=== PATIENT | female | born 1945 | race Caucasian/White ===

== ENCOUNTER 2021-07-26 14:34 | Inpatient (IN) | payer MEDICARE, MEDICAID, SELFPAY ==
[2021-07-26] VITALS (21 sets, daily range): BP systolic 61–150; BP diastolic 47–92; PULSE 72–112; RESP 18–26; TEMP 36.3–36.4; O2SAT 84–100; BMI 23.6
--- NOTE | ~2021-07-26 | XR_ITS ---
EXAM: XR knee RT 3V HISTORY: PAIN,BUMPED KNEE ON DOOR TODAY,PT HYPER EXTENDED KNEE COMPARISON: None available FINDINGS: Decreased mineralization. No fracture or dislocation. No lytic or blastic lesion. Moderate tricompartmental osteoarthritis. No erosion or periosteal change. Moderate volume right knee effusio n. Vascular calcifications. Otherwise the soft tissues are within normal limits. IMPRESSION: No acute osseous finding in the right knee. Reviewed, dictated and finalized at location K.
--- NOTE | ~2021-07-26 | CT_ITS ---
EXAMINATION: CTA chest PE protocol DATE: 07/26/2021 20:22 INDICATION: hypoxic TECHNIQUE: Computed tomography angiography (CTA) of the chest was performed with 100 mL Omnipaque-350 intravenous contrast timed to evaluate the pulmonary arteries. Coronal maximum intensity projection 3D-reconstructions were created by the technologist. The dose-length product (DLP) was 632.10 mGy-cm. Automated exposure control and iterative reconstruction technique were employed. COMPARISON: X-ray chest same date, CTPA 05/16/2015. FINDINGS: Study quality: Adequate. Pulmonary arteries: No pulmonary emboli detected. Thoracic aorta: Arch calcifications, minimal dilation. Lung parenchyma and airways: Motion limited, mild apical interlobular septal thickening. Central twin bronchovascular thickening. Thoracic inlet, axillae and chest wall: Unremarkable. Mediastinum: Normal. Heart and pericardium: Mitral and aortic valve calcification. Coronary artery calcifications: Mild. Pleura: Small right pleural effusion. No pleural mass. Upper abdomen: No significant finding. Bones: No acute osseous finding. IMPRESSION: No CT evidence of acute pulmonary embolus. Mild interstitial pulmonary edema Reviewed, dictated and finalized at location K.
--- NOTE | ~2021-07-26 | XR_ITS ---
EXAMINATION: XR chest 1V portable Exam Date/Time: 07/26/2021 18:40 CDT CLINICAL HISTORY: SOB Comparison: None available. RESULT: Lines, tubes, and devices: None. Lungs and pleura: Low lung volumes. Bronchovascular crowding. Cardiomediastinal silhouette: Stable cardiomediastinal silhouette. Other: No acute osseous or upper abdominal finding. IMPRESSION: No acute cardiopulmonary process Reviewed, dictated and finalized at location K.
--- NOTE | 2021-07-26 17:01 | ED.GENADULT ---
HPI - General Adult General Chief complaint: Fall Stated complaint: fall and hurt knee Time Seen by Provider: 07/26/21 14:46 History of Present Illness HPI narrative: Patient is a 75-year-old female who presents ER after injuring her knee. She was trying to get into a tall SUV and she crossed her right leg in front of her chest which is not how she typically gets into the car. It caused her to have pain in her knee and fall. She did not strike her head or lose consciousness. She has no numbness or tingling in her knee. She has pain with attempting to bear weight. No swelling to the knee. Related Data Allergies Allergy/AdvReac Type Severity Reaction Status Date / Time Penicillins Allergy Unknown Rash Verified 07/26/21 14:58 Review of Systems Musculoskeletal: Musculoskeletal: Reports arthralgias, Denies joint swelling and Denies muscle cramps Integumentary/Breasts: Skin/Breast: Denies erythema and Denies rash Neurologic: Denies syncope, Denies focal weakness and Denies numbness PMFSH Past Medical History Medical History (Updated 07/26/21 @ 17:14 by Compa Talamantes MD) Anxiety Depression History of dementia Hypothyroidism Multiple sclerosis Rheumatoid arthritis Surgical History Surgical History (Updated 07/26/21 @ 17:14 by Compa Talamantes MD) History of cholecystectomy History of gastric bypass History of hysterectomy History of inguinal hernia repair Hx of tonsillectomy Exam Narrative: GENERAL: Well-appearing, well-nourished, and in no acute distress. HEAD: Normocephalic, atraumatic. EXTREMITIES: Normal range of motion. No edema. No effusion of the right knee. Mild tenderness along the anterior joint line. Increased discomfort with stressing of the lateral aspect of the knee but otherwise ligamentously intact. SKIN: Warm, dry, no rash. NEURO: Alert and oriented x3. PSYCH: Normal mood and affect. Course Course Emergency Course: Informed of results. Discussed treatment plan. Discharge home. Vital Signs Vital signs: Vital Signs Temperature 97.4 F L 07/26/21 14:38 Pulse Rate 72 07/26/21 14:38 Respiratory Rate 18 07/26/21 14:38 Blood Pressure 150/61 H 07/26/21 14:38 Pulse Oximetry 91 07/26/21 14:38 Temperature 97.4 F L 07/26/21 14:38 Pulse Rate 72 05/15/22 14:38 Respiratory Rate 18 07/26/21 14:52 Blood Pressure 150/61 H 07/26/21 14:38 Pulse Oximetry 98 07/26/21 14:52 Medical Decision Making Vital Signs Vital Signs: Vital Signs Temperature 97.4 F L 07/26/21 14:38 Pulse Rate 72 07/26/21 14:38 Respiratory Rate 18 07/26/21 14:38 Blood Pressure 150/61 H 07/26/21 14:38 Pulse Oximetry 91 07/26/21 14:38 Temperature 97.4 F L 07/26/21 14:38 Pulse Rate 72 07/26/21 14:38 Respiratory Rate 18 07/26/21 14:52 Blood Pressure 150/61 H 07/26/21 14:38 Pulse Oximetry 98 07/26/21 14:52 Imaging Data Radiologist's impression: ITS Impressions Knee X-Ray 07/26/21 16:00 IMPRESSION: No acute osseous finding in the right knee. Discharge Plan Discharge Clinical Impression: Right knee sprain Patient Disposition: Home, Self-Care Condition: Stable Instructions: Knee Sprain (ED), P.R.I.C.E. Treatment (ED) Additional Instructions: Return the ER if you suffer additional injury, he have a cold/blue lower extremity, you have additional concerns. Prescriptions: New ibuprofen 400 mg tablet 400 mg PO TID Qty: 14 RF: 0 Follow-up/Referrals: Eladio Connolly MD [Primary Care Provider] - 1 Week
[2021-07-26 17:36] LABS: Glucose Point of Care 160 mg/dl (65-105)
[2021-07-26] MEDS: ONDANSETRON HCL ODT 4 MG TABLET PO (17:37)
--- NOTE | 2021-07-26 17:50 | PC.NURSE ---
At discharge noted pt being pale, diaphoretic, and c/o nausea. BS checked and was reading 160, BP 105/68, P 93 R 20, O2 sat 84% on RA. Pt taken to room 11 and put on monitors.
--- NOTE | 2021-07-26 17:57 | ECG_ITS ---
Measurements Intervals [place] Rate: 93 P: 21 RI: 174 QRS: -60 QRSD: 109 T: 63 QT: 354 QTc: 441 Interpretive Statements SINUS RHYTHM VENTRICULAR PREMATURE COMPLEX LATERAL INFARCT, AGE INDETERMINATE INFERIOR INFARCT, AGE INDETERMINATE BORDERLINE ST-T WAVE ABNORMALITY- HIGH LATERAL LEADS ABNORMAL ECG Electronically Signed On 07-26-2021 20:12:33 CDT by Alexis Kline D.O.
[2021-07-26 18:22] LABS: Basophils Absolute Auto 0.1 K/mm3 (0.0-0.1); Basophils Percent Auto 0.4 % (0.2-1.2); Eosinophils Absolute Auto 0.1 K/mm3 (0-0.3); Eosinophils Percent Auto 0.7 % (0-4.4); Hematocrit 46.2 % (37.0-47.0); Hemoglobin 14.7 g/dL (12.0-15.0); Immature Granulocyte Absolute 0.05 K/mm3 (0.00-0.031); Immature Granulocyte Percent A 0.4 % (0-0.5); Lymphocytes Absolute Auto 0.71 K/mm3 (0.9-3.2); Lymphocytes Percent Auto 5.6 % (18.3-44.2); Mean Corpuscular HGB Conc 31.8 g/dl (32-36); Mean Corpuscular Volume 97.5 fl (80-100); Mean Platelet Volume 10.7 fl (7.4-10.4); Monocytes Absolute Auto 0.6 K/mm3 (0.1-0.6); Monocytes Percent Auto 4.5 % (2.6-8.5); Neutrophils Absolute Auto 11.1 K/mm3 (1.3-6.7); Neutrophils Percent Auto 88.4 % (45.5-73.1); Platelet Count Result 172 k/mm3 (150-375); Red Blood Count 4.74 M/mm3 (4.2-5.4); Red Cell Distribution Width 13.8 % (11.5-14.5); White Blood Count 12.6 K/mm3 (4.5-10.0)
[2021-07-26] MEDS: SODIUM CHLORIDE 0.9% IV 1,000 ML 999 ML IV CONT (18:22)
[2021-07-26 18:37] LABS: Alanine Aminotransferase 40 U/L (6-35); Albumin Level 3.7 g/dL (3.5-5.1); Alkaline Phosphatase 273 U/L (38-126); Anion Gap 6 mmol/L (8-16); Aspartate Amino Transferase 52 U/L (14-36); Bilirubin,Total 1.4 mg/dL (0.2-1.3); Blood Urea Nitrogen 26 mg/dL (7-17); Carbon Dioxide 26 mmol/L (22-30); Chloride 109 mmol/L (98-107); Estimated CRCL calculation 38 ml/min; Estimated Glomerular Filt Rate 54; Glucose 146 mg/dL (65-110); Lactic Acid Reflex 1.1 mmol/L (0.7-2.0); Lipase 37 U/L (23-300); Potassium 4.3 mmol/L (3.4-5.0); Sodium 141 mmol/L (137-145)
[2021-07-26 19:05] LABS: Appearance Urine Slightly Cloudy (Clear); Bilirubin Urine 1+ (Negative); Blood Urine 3+ (Negative); Color Urine Yellow (Yellow); Glucose Urine UA Negative (Negative); Ketones Urine 1+ mg/dL (Negative); Leukocyte Esterase Ur Trace LEU/UL (Negative); Nitrate Urine Negative (Negative); Protein Urine 1+ mg/dL (Negative); pH Urine 5.5 (5.0-9.0)
[2021-07-26 19:08] LABS: Alveolar/Arterial O2 Gradient 214.3 mmHg; Base Excess ABG -5.4 mEq/l (+/-2.0); Carboxyhemoglobin 1.2 % THb (0-2.0); Fractional Inspired Oxygen 44 %; HCO3 ABG 20.7 mEq/l (22.0-26.0); Methemoglobin ABG 0.2 %THb (0-1.5); Oxygen Content ABG 17.1 %vol (16.0-22.0); PCO2 ABG 42.5 mmHg (35.0-45.0); PO2 FiO2 Ratio Arterial Blood 1.16 %; Reduced Hemoglobin 14.7 %THb (0-5.0); Total Hemoglobin 14.5 g/dL (12.0-18.0); pH ABG 7.306 (7.350-7.450)
[2021-07-26 19:13] LABS: Device NASAL CANNULA; Modified Allen's Test Pass; Oxygen Saturation ABG 82.7 % (95.0-100.0); Oxyhemoglobin 83.9 % THb (90.0-100.0); Site Drawn RIGHT RADIAL
[2021-07-26 19:16] LABS: Bacteria Urine 2+ /hpf; Mucus Urine Rare /lpf; RBC Urine >75 /hpf (0-2); Squamous Epithelial Cell Urine Rare /hpf (Few); WBC Urine 16-20 /hpf
[2021-07-26 19:20] LABS: Add Urine Microscopic? YES
--- NOTE | 2021-07-26 19:26 | PC.NURSE ---
Assumed care of pt at this time. Pt upright on stretcher, family at bedside. Respiratory at bedside to administer high flow O2.
[2021-07-26 20:20] LABS: Troponin I 0.211 ng/mL (0.000-0.034)
[2021-07-26 20:24] LABS: SARS-CoV-2 RNA PCR Negative
--- NOTE | 2021-07-26 21:06 | PM.IMHP ---
H&P: HPI History of Present Illness Date/Time: 07/26/21 21:06 Chief Complaint: Fall with knee pain Narrative: 75-year-old female with past medical history of diastolic dysfunction, mild pulmonary hypertension, chronic pain syndrome, chronic bronchitis and multiple sclerosis among other comorbidities who presented to the ER due to right knee pain. The patient was trying to get into a SUV when a friend from [employer] was taking her back to her assisted living facility she fell hitting her right knee on the door frame. She felt as if she had hyper extended her leg and wrenched her knee. She reports that her friend caught her and that she never fell to the ground. She was evaluated in the ER with a x-ray of her knee and given a Liter of fluid. As she was preparing for discharge home the patient suddenly had an episode of severe nausea and a loose bowel movement. Following the symptoms the patient suddenly desaturated to 84% on room air. Stat ABG was performed in correlated with these findings. The patient was placed on high-flow nasal cannula and was titrated up to 9 L of oxygen to maintain sats of 97%. It was suspected the patient may have COVID as she was having sneezing and nasal congestion noted by ER staff. COVID PCR was performed and was negative. Patient has stat EKG performed which demonstrated lateral and inferior infarct age indeterminate and borderline ST and T-wave abnormality in high lateral leads. At the time of my evaluation the patient admits that she has actually been short of breath for the last 48 hours. She reports that she ?felt as if she had fluid on her lungs.?. She did not share this information with the ER providers. She admits that she always sleeps with the head of the bed at around 45?. She does not know if she is having any orthopnea she will not lay flat. She denies any lower extremity swelling or abdominal swelling. She reports that she used to be morbidly obese but over the last several years has lost weight due to not liking the taste of the shelter food. She denies any chest pain or palpitations. She has been having what she thought were allergy symptoms with some nasal congestion and sneezing. She denies any sore throat, fevers, chills. She reports that she frequently has loose stools that she thought was due to her multiple sclerosis but is more likely due to her history of prior gastric bypass. She reports that today the diarrhea was unusual because she has not actually eaten any food. She has not had any further episodes of diarrhea. She reports that over the last weeks he has been having increased urinary frequency and dysuria. She has also noticed that her urine has been cloudy. She denies any fevers or chills. She has chronic incontinence of bowel and bladder due to her history of multiple sclerosis. 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 However, the patient is a extremely good historian and is alert oriented x4. Source of information includes patient report and review of past medical records. The patient denies a history of heart failure but an echo was located from past medical records that indicate the patient had mild pulmonary hypertension and diastolic dysfunction grade 1 back in 2017. Review of Systems Review of Systems: 12 systems were reviewed with pertinent positives and negatives per HPI. Except as documented in the HPI, all other systems were reviewed and are negative. [facility] Past Medical History Medical History (Updated 07/27/21 @ 00:17 by Ammy Hardin, ) Anxiety B12 deficiency Chronic bronchitis Chronic pancreatitis Dementia Depression Diastolic dysfunction Noted on echocardiogram 2015, EF 65%, moderate LVH Diet-controlled type 2 diabetes mellitus GERD (gastroesophageal reflux disease) Hyperlipidemia Hypothyroidism Intracranial bleed Noted on MRI May 2016: 8 mm lesion in the right temporal lobe consistent with acute intraparenchymal hemato
[2021-07-26] MEDS: FUROSEMIDE INJ 40 MG/4 ML VIAL IV PUSH (21:12)
[2021-07-26] MEDS: ASPIRIN 81 MG CHEWABLE TABLET 324 MG PO (21:12)
--- NOTE | 2021-07-26 21:51 | PC.NURSE ---
Ame Bryan (PH: [phone]) would like to be notified if pt needs anything brought to hospital during stay. Otherwise, call listed POA for all other issues.
--- NOTE | 2021-07-26 21:56 | ECG_ITS ---
Measurements Intervals [place] Rate: 111 P: 17 MN: 133 QRS: -68 QRSD: 108 T: 57 QT: 322 QTc: 439 Interpretive Statements SINUS TACHYCARDIA ANTEROLATERAL INFARCT, AGE INDETERMINATE INFERIOR INFARCT, AGE INDETERMINATE BORDERLINE ST-T WAVE ABNORMALITY- HIGH LATERAL LEADS ABNORMAL ECG Electronically Signed On 07-27-2021 6:53:09 CDT by Alexis Kline D.O.
[2021-07-26 21:58] LABS: Troponin I 0.639 ng/mL (0.000-0.034)
[2021-07-26 22:01] LABS: Influenza A QL RT-PCR Negative (Negative); Influenza B QL RT-PCR Negative (Negative)
[2021-07-26] MEDS: HEPARIN SODIUM 5,000 UNITS/ML VIAL 3500 UNITS IV PUSH (22:22)
[2021-07-26] MEDS: HEPARIN SOD/D5W 100 UNITS/ML 25,000 UNITS/250 ML BAG 7 UNITS IV CONT (22:23)
--- NOTE | 2021-07-26 22:28 | PC.NURSE ---
Pt denies CP, but c/o pain in right knee. requesting ice pack
[2021-07-26 22:50] LABS: Partial Thromboplastin Time 28.2 SECONDS (22.3-36.8); Prothrombin Time 13.2 Seconds (11.1-14.7)
--- NOTE | 2021-07-26 22:55 | ADMGEN ---
This patient, Alejandra Gray, was admitted to IMU Room 213-01. Patient/family oriented to hospital policies and general routines including ID bracelet, bed and alarms, visiting hours, pain management, procedures, bathroom and other care routines, personal items, smoking policy, room service/diet, and visiting hours. Information on how to activate the Rapid Response Team has been discussed. Patient/Family are encouraged to report perceived risks to care and to ask questions if they do not understand what they are told or what they should do.
[2021-07-27] VITALS (15 sets, daily range): BP systolic 98–127; BP diastolic 40–70; PULSE 93–109; RESP 16–28; TEMP 36.6–36.9; O2SAT 92–99
--- NOTE | 2021-07-27 | ECHO_ITS ---
Patient Info Name: Alejandra Gray Age: 75 years : 1945 Gender: Female Ht: 64 in Wt: 129 lbs BSA: 1.63 m2 HR: 99 bpm BP: 103 / 56 mmHg Heart Rhythm: Sinus Rhythm Exam Date: 07/27/2021 9:08 AM Exam Location: [facility] Patient Status: Inpatient Admit Date: 07/26/2021 Staff Ordering Physician: Ammy Hardin DO Soil Expert: Dusty Lowery RDCS, RT Attending Provider: Sylvia Carlton PA-C Referring Physician: Wilfred PRADHAN; Exam Type: CA echo doppler color flow Study Info Indications J96.91 - Respiratory failure, unspecified with hypoxia Complete two-dimensional, color flow and Doppler transthoracic echocardiogram is performed. Strain analysis performed. Summary 1. Complete two-dimensional, color flow and Doppler transthoracic echocardiogram is performed. 2. Left ventricular chamber dimension is normal. 3. Left ventricular systolic function is hyperdynamic, estimated at >70%. 4. Left atrial chamber dimension is normal. 5. There is mild aortic valve sclerosis. Left Ventricle Left ventricular chamber dimension is normal. Left ventricular systolic function is hyperdynamic, estimated at >70%. The left ventricular diastolic function is grade I diastolic dysfunction. Right Ventricle Right ventricular chamber dimension is normal. Left Atria Left atrial chamber dimension is normal. Right Atria Right atrial chamber dimension is normal. Aortic Valve The aortic valve is trileaflet. There is mild aortic valve sclerosis. Pulmonic Valve The pulmonic valve is not well visualized. Mitral Valve The mitral valve has normal leaflets. Tricuspid Valve The tricuspid valve leaflets are normal. Pericardium/Pleural The pericardium appears normal. Aorta The aortic root size at the sinus of Valsalva is normal. Left Ventricular Outflow Tract Name Value Normal LVOT 2D LVOT Diameter 2.0 cm LVOT Doppler LVOT Peak Gradient 4 mmHg LVOT Mean Gradient 1 mmHg LVOT VTI 14 cm LVOT VTI/AV VTI Ratio 0.5 LVOT Stroke Volume 43 ml LVOT CO 4.2 l/min LVOT CI 2.6 l/min/m2 Mitral Valve Name Value Normal MV Doppler MV Decel [place] 264 cm/s2 MV PHT 35 ms MV Area (PHT) 6.2 cm2 4.0-5.0 MV Diastolic Function MV E Peak Velocity 32 cm/s MV A Peak Velocity 99 cm/s MV E/A 0.3 MV Decel Time 122 ms MV Annular TDI
[2021-07-27 01:33] LABS: Troponin I 0.849 ng/mL (0.000-0.034)
[2021-07-27 04:52] LABS: Basophils Absolute Auto 0.1 K/mm3 (0.0-0.1); Basophils Percent Auto 0.4 % (0.2-1.2); Eosinophils Absolute Auto 0.1 K/mm3 (0-0.3); Eosinophils Percent Auto 0.4 % (0-4.4); Hematocrit 44.6 % (37.0-47.0); Hemoglobin 14.7 g/dL (12.0-15.0); Immature Granulocyte Absolute 0.11 K/mm3 (0.00-0.031); Immature Granulocyte Percent A 0.7 % (0-0.5); Lymphocytes Absolute Auto 0.84 K/mm3 (0.9-3.2); Mean Corpuscular Hemoglobin 31.4 pg (26-34); Mean Corpuscular Volume 95.3 fl (80-100); Monocytes Absolute Auto 0.5 K/mm3 (0.1-0.6); Monocytes Percent Auto 2.9 % (2.6-8.5); Neutrophils Absolute Auto 15.1 K/mm3 (1.3-6.7); Neutrophils Percent Auto 90.6 % (45.5-73.1); Platelet Count Result 216 k/mm3 (150-375); Red Blood Count 4.68 M/mm3 (4.2-5.4); Red Cell Distribution Width 13.8 % (11.5-14.5); White Blood Count 16.7 K/mm3 (4.5-10.0)
[2021-07-27 05:02] LABS: Anion Gap 9 mmol/L (8-16); Blood Urea Nitrogen 28 mg/dL (7-17); Calcium 8.6 mg/dL (8.4-10.2); Carbon Dioxide 22 mmol/L (22-30); Chloride 109 mmol/L (98-107); Estimated CRCL calculation 33 ml/min; Estimated Glomerular Filt Rate 49; Glucose 164 mg/dL (65-110); Magnesium 1.8 mg/dL (1.6-2.3); Potassium 4.4 mmol/L (3.4-5.0); Sodium 140 mmol/L (137-145)
[2021-07-27 05:08] LABS: Partial Thromboplastin Time 120.4 SECONDS (22.3-36.8)
[2021-07-27 05:21] LABS: Troponin I 0.914 ng/mL (0.000-0.034)
--- NOTE | 2021-07-27 08:28 | PM.CNCAR ---
Assessment and Plan Additional Plan 75-year-old lady with: Visit to the emergency room yesterday because of knee pain that occurred when she twisted her knee in unusual position getting out of an SUV. She became short of breath while she was in the emergency room and because of this a series of troponin levels were drawn. The results are as detailed above in my note. She has no cardiac symptomatology other than the shortness of breath that she was noted in the emergency room. She says that is no longer bothering her she still wearing nasal cannula oxygen. She did receive a dose of furosemide last night in the emergency room. Her electrocardiogram would be read as consistent with a previous inferolateral infarction. I would recommend getting an echocardiogram done for further evaluation of this along with her shortness of breath at a a created this concern last night. Further recommendations will be forthcoming after I review her echo findings. Adarsh Ricardo MD [facility] History of Present Illness History of Present Illness Consult date/time: 07/27/21 08:28 Consult reason: Other (Elevated troponin) Reason For Visit: Acute Hypoxic Respiratory Failure requiring high f Narrative: This is a 75-year-old woman who says she is not known to have any cardiac problems before this I am seeing her this morning at the request of the hospitalist because of troponin levels that were sampled and are out of normal range. She is resting comfortably this morning wearing nasal cannula oxygen in the IMU and does not offer any current complaints. She was sleeping comfortably in bed when I came in to see her and upon awakening she has no complaints. The chart indicates a rather uncommon or strange presentation that would have resulted in troponin being sampled. She came to the emergency room because she twisted her knee getting in or out of an SUV it as friend was bring her to [facility] yesterday. She had significant knee pain and was brought to the emergency room for evaluation. During the course of evaluation down there apparently she became short of breath and oxygen levels desaturated. A chest x-ray was done which did not show any significant pathology other than what was described as low lung volumes. On my review I was concerned that there was a possibly some vascular cephalization. In any event she had a CT of the chest done which was negative for pulmonary embolism. She was put on some nasal cannula oxygen and troponin levels were sampled. The levels started at 0.2 and lynette to a high of 0.9. The patient's electrocardiogram shows sinus rhythm with what appears to be a previous inferolateral infarction. She says she is not known to have any coronary artery disease or any cardiac trouble in the past. She resides in a assisted living facility at [facility] her PCP is Dr. Connolly. She says she has never been told she has hypertension or dyslipidemia. She was previously morbidly obese and at that time had diabetes which she says is resolved with weight loss. Her other principal health problem is multiple sclerosis she has difficult time ambulating at times sometimes uses a walker and for longer ambulation she uses a wheelchair. She has not been experiencing orthopnea PND or edema. When she does walk at [facility] with her walker she has not noticed any exertional dyspnea or chest pain. Review of Systems Constitutional: Constitutional: Reports no additional constitutional complaints Eyes: Eyes: Reports no additional eye complaints ENT: Reports system reviewed and no additional complaints, except as documented Cardiovascular: Cardiovascular: Reports no additional cardiovascular complaints Respiratory: Respiratory: Reports as per HPI Gastrointestinal: Gastrointestinal: Reports diarrhea Comments: Patient has chronic intermittent diarrhea for a number of years Musculoskeletal: Musculoskeletal: Reports no additional musculoskeletal complaints Integu
[2021-07-27] MEDS: LEVOTHYROXINE SODIUM 75 MCG TABLET PO (09:28)
[2021-07-27] MEDS: CHOLECALCIFEROL 1,000 UNITS TABLET 2000 UNITS PO ×2 (09:28→16:54)
[2021-07-27] MEDS: ASPIRIN 81 MG ENTERIC TABLET PO (09:28)
[2021-07-27] MEDS: cycloSPORINE 0.4 ML OPHTH SOLUTION 1 DROP EACH EYE ×2 (09:28→16:53)
[2021-07-27] MEDS: ESCITALOPRAM OXALATE 10 MG TABLET PO (09:28)
[2021-07-27] MEDS: MEMANTINE HCL XR 28 MG CAP PO (09:29)
[2021-07-27] MEDS: FERROUS SULFATE 324 MG TABLET PO ×2 (09:29→16:53)
[2021-07-27] MEDS: FLUTICASONE PROPIONATE 0.05% NA SPR 16 GM BTL (*BKC) 1 SPRAY NASAL (09:29)
[2021-07-27] MEDS: PANTOPRAZOLE 40 MG TABLET PO (09:29)
[2021-07-27] MEDS: HEPARIN SODIUM 5,000 UNITS/ML VIAL 2500 UNITS IV PUSH (14:02)
--- NOTE | 2021-07-27 14:32 | PM.IMPN ---
Progress Note: A&P Assessment and Plan (1) Acute respiratory failure with hypoxia: Code(s): J96.01 - Acute respiratory failure with hypoxia Status: Acute Assessment and Plan: Patient developed acute hypoxic respiratory failure while in the ED Suspected secondary to pulmonary edema CXR showed no acute findings and CTA revealed mild pulmonary edema Currently requiring 6 L per high-flow nasal cannula. Maintaining adequate oxygen saturations Echocardiogram is pending (2) Elevated troponin: Code(s): R77.8 - Other specified abnormalities of plasma proteins Status: Acute Assessment and Plan: Troponin mildly elevated up to 0.914 Appreciate cardiology consultation EKG revealed evidence of prior inferolateral infarction No evidence to suggest acute coronary syndrome She was started on heparin drip at presentation which will be discontinued at this time following discussion with Cardiology Continue aspirin 81 mg daily (3) Acute exacerbation of CHF (congestive heart failure): Qualifiers: Heart failure type: diastolic Qualified Code(s): I50.33 - Acute on chronic diastolic (congestive) heart failure Code(s): I50.9 - Heart failure, unspecified Status: Acute Assessment and Plan: Patient with suspected acute exacerbation of diastolic heart failure exacerbated by fluid administration Echocardiogram is pending Symptomatic improvement following 1 time dose IV furosemide 40 mg. Will resume Appreciate cardiology consultation Heart healthy diet. Monitor volume status with I&Os. Weigh daily. (4) Abnormal urinalysis: Code(s): R82.90 - Unspecified abnormal findings in urine Status: Acute Assessment and Plan: Urinalysis was abnormal on presentation Continue ceftriaxone empirically Urine culture pending. Await results and tailor antibiotics appropriately Monitor WBC (5) Right knee sprain: Qualifiers: Encounter type: initial encounter Involved ligament of knee: unspecified ligament Qualified Code(s): S83.91XA - Sprain of unspecified site of right knee, initial encounter Code(s): S83.91XA - Sprain of unspecified site of right knee, initial encounter Status: Acute Assessment and Plan: Presented to ED with complaints of right knee pain after a fall Knee x-ray showed no acute osseous findings Supportive care Additional Plan Patient is hemodynamically stable and will be downgraded to medical floor Subjective Date/time seen: 07/27/21 14:32 Interval history: Date of service: 07/27/2021 Alejandra Gray is a 75-year-old female with a history of diastolic dysfunction, anxiety, depression, hyperlipidemia, multiple sclerosis, in several other medical problems who is seen in follow-up for acute respiratory failure. She is feeling ?much better? today. She denies shortness of breath. She has been resting comfortably for most of the day. Denies cough. Denies conversational dyspnea. No orthopnea. She does complain of some right knee discomfort that she rates as about a 7/10. She states this is much improved from yesterday. She is able to move it a little bit more comfortably and she denies any swelling. She has not been able to bear weight today as she has not been up from bed. She denies swelling in her extremities. Denies nausea or vomiting. Appetite is good. Reports regular bowel movements. Denies dysuria or hematuria. No fevers or chills. She has no additional concerns. 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
--- NOTE | 2021-07-27 18:16 | PC.NURSE ---
Faxed, Tubed, and notified 3rd Med/Surg of Patient's SBAR sent at 1723.
--- NOTE | 2021-07-27 18:17 | PC.NURSE ---
Called 3rd Med/Surg to give report on patient at 1802. Was informed of RN being on lunch at this time.
--- NOTE | 2021-07-27 18:48 | PC.NURSE ---
This patient, Alejandra Gray, was transferred to [facility] on 07/27/21 at 1840. Personal belongings sent with patient. Report given to Cara HUIZAR. Appropriate documentation sent with patient.
[2021-07-27] MEDS: HYDROcodone/acetaminophen (*CRX) 5-325 MG TABLET 1 TAB PO (20:50)
[2021-07-27] MEDS: MELATONIN 5 MG, MELATONIN 3 MG 8 MG PO (20:51)
[2021-07-28] VITALS (8 sets, daily range): BP systolic 109–138; BP diastolic 52–68; PULSE 92–99; RESP 16–20; TEMP 35.7–36.9; O2SAT 88–100
[2021-07-28] MEDS: LEVOTHYROXINE SODIUM 75 MCG TABLET PO (05:51)
[2021-07-28 06:21] LABS: Hematocrit 39.4 % (37.0-47.0); Hemoglobin 12.6 g/dL (12.0-15.0); Immature Platelet Fraction Pct 4.8 % (0.9-11.2); Mean Corpuscular Hemoglobin 30.6 pg (26-34); Mean Corpuscular Volume 95.6 fl (80-100); Mean Platelet Volume 11.7 fl (7.4-10.4); Platelet Count Result 115 k/mm3 (150-375); Red Blood Count 4.12 M/mm3 (4.2-5.4); Red Cell Distribution Width 13.8 % (11.5-14.5); White Blood Count 7.4 K/mm3 (4.5-10.0)
[2021-07-28 06:28] LABS: Anion Gap 3 mmol/L (8-16); Blood Urea Nitrogen 29 mg/dL (7-17); Calcium 8.4 mg/dL (8.4-10.2); Carbon Dioxide 28 mmol/L (22-30); Chloride 110 mmol/L (98-107); Estimated CRCL calculation 33 ml/min; Estimated Glomerular Filt Rate 49; Glucose 122 mg/dL (65-110); Potassium 3.9 mmol/L (3.4-5.0); Sodium 141 mmol/L (137-145)
[2021-07-28] MEDS: FUROSEMIDE INJ 40 MG/4 ML VIAL 20 MG IV PUSH (08:36)
[2021-07-28] MEDS: CHOLECALCIFEROL 1,000 UNITS TABLET 2000 UNITS PO ×2 (08:36→16:43)
[2021-07-28] MEDS: ESCITALOPRAM OXALATE 10 MG TABLET PO (08:36)
[2021-07-28] MEDS: cycloSPORINE 0.4 ML OPHTH SOLUTION 1 DROP EACH EYE ×2 (08:36→16:43)
[2021-07-28] MEDS: FERROUS SULFATE 324 MG TABLET PO ×2 (08:36→16:42)
[2021-07-28] MEDS: ASPIRIN 81 MG ENTERIC TABLET PO (08:36)
[2021-07-28] MEDS: PANTOPRAZOLE 40 MG TABLET PO (08:36)
[2021-07-28] MEDS: MEMANTINE HCL XR 28 MG CAP PO (08:36)
[2021-07-28] MEDS: FLUTICASONE PROPIONATE 0.05% NA SPR 16 GM BTL (*BKC) 1 SPRAY NASAL (08:37)
[2021-07-28] MEDS: HYDROcodone/acetaminophen (*CRX) 5-325 MG TABLET 1 TAB PO ×2 (08:39→16:42)
--- NOTE | 2021-07-28 13:28 | PM.IMPN ---
Progress Note: A&P Assessment and Plan (1) Acute respiratory failure with hypoxia: Code(s): J96.01 - Acute respiratory failure with hypoxia Status: Acute Assessment and Plan: Patient developed acute hypoxic respiratory failure while in the ED Suspected secondary to pulmonary edema CXR showed no acute findings and CTA revealed mild pulmonary edema Currently requiring 3 L per nasal cannula. Maintaining adequate oxygen saturations. Continue to wean (2) Elevated troponin: Code(s): R77.8 - Other specified abnormalities of plasma proteins Status: Acute Assessment and Plan: Troponin mildly elevated up to 0.914 Appreciate cardiology consultation EKG revealed evidence of prior inferolateral infarction No evidence to suggest acute coronary syndrome Continue aspirin 81 mg daily (3) Acute exacerbation of CHF (congestive heart failure): Qualifiers: Heart failure type: diastolic Qualified Code(s): I50.33 - Acute on chronic diastolic (congestive) heart failure Code(s): I50.9 - Heart failure, unspecified Status: Acute Assessment and Plan: Patient with acute exacerbation of diastolic heart failure exacerbated by fluid administration Echocardiogram reviewed which showed hyperdynamic systolic function >70% with diastolic dysfunction Lasix 20 mg IV. Plan to transition to p.o. Lasix tomorrow Appreciate cardiology consultation Heart healthy diet. Monitor volume status with I&Os. Weigh daily. (4) Abnormal urinalysis: Code(s): R82.90 - Unspecified abnormal findings in urine Status: Acute Assessment and Plan: Urinalysis was abnormal on presentation Urine culture with growth of mixed genital trena not indicative of acute infection Continue IV ceftriaxone given patient's clinical picture and improvement in symptoms with therapy Monitor WBC (5) Right knee sprain: Qualifiers: Encounter type: initial encounter Involved ligament of knee: unspecified ligament Qualified Code(s): S83.91XA - Sprain of unspecified site of right knee, initial encounter Code(s): S83.91XA - Sprain of unspecified site of right knee, initial encounter Status: Acute Assessment and Plan: Presented to ED with complaints of right knee pain after a fall Knee x-ray showed no acute osseous findings Supportive care PT/OT eval appreciated Subjective Date/time seen: 07/28/21 13:28 Interval history: Date of service: 07/28/2021 Alejandra Gray is a 75-year-old female with a history of diastolic dysfunction, anxiety, depression, hyperlipidemia, multiple sclerosis, and several other medical problems who is seen in follow-up for acute respiratory failure. She is feeling today. She states the soreness of her knee has improved. She denies shortness of breath cough, or wheezes. Denies nausea, vomiting fever, chills. Denies urinary symptoms. States that previously she was having some flank pain and discomfort with urinating but this has resolved. She has been using the bedpan while in the hospital but typically she is able to transfer from her wheelchair to the bathroom. Her appetite is good. Review of Systems Review of Systems: All systems reviewed & are unremarkable except as noted in HPI and below Exam Narrative: General: Thin, frail 75-year-old female, sitting up in bed, comfortable, NARD Neuro: awake, alert and oriented x4, speech clear, no focal neuro deficits noted HEENMT: normocephalic, atraumatic, EOMI, sclerae anicteric Respiratory: Clear to auscultation bilaterally, nonlabored breathing Cardio: regular rate, regular rhythm with S1-S2 Abdomen: nondistended, normoactive bowel sounds, soft, nontender to palpation Extremities: Bilateral knees nontender to palpation, no edema of bilateral knees or calves, no erythema or tenderness to palpation, DP pulses 2+ bilaterally Skin: no rashes or lesions, warm and dry Psych:
[2021-07-29] MEDS: HYDROcodone/acetaminophen (*CRX) 5-325 MG TABLET 1 TAB PO (02:16)
[2021-07-29 06:00] VITALS: BP 134/70; PULSE 107; RESP 16; TEMP 36.2; O2SAT 94
[2021-07-29] MEDS: LEVOTHYROXINE SODIUM 75 MCG TABLET PO (06:04)
[2021-07-29 06:14] VITALS: O2SAT 94
[2021-07-29 06:36] LABS: Hematocrit 39.1 % (37.0-47.0); Hemoglobin 12.5 g/dL (12.0-15.0); Immature Platelet Fraction Pct 6.2 % (0.9-11.2); Mean Corpuscular Hemoglobin 30.7 pg (26-34); Mean Corpuscular Volume 96.1 fl (80-100); Mean Platelet Volume 11.1 fl (7.4-10.4); Platelet Count Result 121 k/mm3 (150-375); Red Blood Count 4.07 M/mm3 (4.2-5.4); Red Cell Distribution Width 13.6 % (11.5-14.5)
[2021-07-29 06:50] LABS: Anion Gap 8 mmol/L (8-16); Blood Urea Nitrogen 22 mg/dL (7-17); Calcium 8.5 mg/dL (8.4-10.2); Carbon Dioxide 27 mmol/L (22-30); Chloride 108 mmol/L (98-107); Estimated CRCL calculation 40 ml/min; Estimated Glomerular Filt Rate > 60; Glucose 132 mg/dL (65-110); Potassium 3.5 mmol/L (3.4-5.0); Sodium 143 mmol/L (137-145)
[2021-07-29] MEDS: CHOLECALCIFEROL 1,000 UNITS TABLET 2000 UNITS PO (08:44)
[2021-07-29] MEDS: MEMANTINE HCL XR 28 MG CAP PO (08:44)
[2021-07-29] MEDS: ESCITALOPRAM OXALATE 10 MG TABLET PO (08:44)
[2021-07-29] MEDS: PANTOPRAZOLE 40 MG TABLET PO (08:44)
[2021-07-29] MEDS: FERROUS SULFATE 324 MG TABLET PO (08:44)
[2021-07-29] MEDS: ENOXAPARIN 40 MG/0.4 ML SYRINGE SUB-Q (08:44)
[2021-07-29] MEDS: ASPIRIN 81 MG ENTERIC TABLET PO (08:45)
[2021-07-29] MEDS: FLUTICASONE PROPIONATE 0.05% NA SPR 16 GM BTL (*BKC) 1 SPRAY NASAL (08:45)
[2021-07-29] MEDS: cycloSPORINE 0.4 ML OPHTH SOLUTION 1 DROP EACH EYE (08:45)
[2021-07-29] MEDS: FUROSEMIDE 20 MG TABLET PO (09:15)
--- NOTE | 2021-07-29 10:16 | PCRCNOTE ---
HOME O2 EVAL ORDERED ON PT. PT DISCHARGING TO [facility], NO O2 EVAL REQUIRED. PT. SAO2 93% ROOM AIR
--- NOTE | 2021-07-29 13:21 | PM.DS ---
DS: Admitting Diagnosis Discharge Date 07/29/2021 Admitting Diagnosis Acute respiratory failure DS: Discharge Diagnosis Discharge Diagnosis (1) Acute respiratory failure with hypoxia: Code(s): J96.01 - Acute respiratory failure with hypoxia Status: Acute Assessment and Plan: Patient developed acute hypoxic respiratory failure while in the ED, suspect secondary to pulmonary edema CXR showed no acute findings and CTA revealed mild pulmonary edema She required up to 10 L supplemental oxygen per high-flow nasal cannula but was able to be promptly weaned to room air Oxygen saturations will be monitored closely at nursing facility and supplemental oxygen to be provided as needed (2) Acute exacerbation of CHF (congestive heart failure): Qualifiers: Heart failure type: diastolic Qualified Code(s): I50.33 - Acute on chronic diastolic (congestive) heart failure Code(s): I50.9 - Heart failure, unspecified Status: Acute Assessment and Plan: Patient with acute exacerbation of diastolic heart failure exacerbated by fluid administration Echocardiogram reviewed which showed hyperdynamic systolic function >70% with diastolic dysfunction Symptomatic improvement following IV diuresis Will continue with low-dose Lasix 20 mg daily on discharge. Potassium supplementation 10 mEq daily while on Lasix. Repeat BMP in 1 week to monitor renal function CHF Education provided. Continue with heart healthy diet and daily weight monitoring (3) Elevated troponin: Code(s): R77.8 - Other specified abnormalities of plasma proteins Status: Acute Assessment and Plan: Troponin mildly elevated up to 0.914 She was seen in consultation by Cardiology EKG revealed evidence of prior inferolateral infarction No evidence to suggest acute coronary syndrome No further intervention required (4) Abnormal urinalysis: Code(s): R82.90 - Unspecified abnormal findings in urine Status: Acute Assessment and Plan: Urinalysis was abnormal on presentation and patient reported urinary symptoms Urine culture with growth of mixed genital trena not indicative of acute infection She had clinical and symptomatic improvement following IV ceftriaxone. Leukocytosis resolved Given patient's clinical picture and improvement with therapy, she will continue with p.o. cefdinir to complete a total of 7 days of antibiotic therapy (5) Right knee sprain: Qualifiers: Encounter type: initial encounter Involved ligament of knee: unspecified ligament Qualified Code(s): S83.91XA - Sprain of unspecified site of right knee, initial encounter Code(s): S83.91XA - Sprain of unspecified site of right knee, initial encounter Status: Acute Assessment and Plan: Presented to ED with complaints of right knee pain after a fall Knee x-ray showed no acute osseous findings Supportive care provided Participated in PT/OT during admission DS: Summary Hospital Course Hospital Course: Date of admission: 07/26/2021 Date of discharge: 07/29/2021 Alejandra Gray is a 75-year-old female with a history of diastolic dysfunction, anxiety, depression, hyperlipidemia, multiple sclerosis, and several other comorbidities who presented to the emergency department on 07/26/2021 with complaints of right knee pain after falling on to the right knee while attempting to get into a tall vehicle. In the ED, the knee was evaluated she was diagnosed with knee sprain. As she was being discharged she became hypoxic and required 10 L supplemental O2 per nasal cannula. Following further discussion with the patient, she noted that she had been feeling short of breath for some time prior to presentation. She was admitted to the hospitalist service for further evaluation and management. Please see above for further details. She was weaned to room air and had symptomatic improvement with diuresis. Oxy
[2021-07-29 14:05] LABS: EDCOVIDSCREEN Negative (Negative)
== END 2021-07-29 14:50 | DRG 189 ==
LOC: ANHED 19:04 → ANHIMU 21:46 → ANH3MEDSUR 07-27 18:27
PROVIDERS: Emergency Medicine; Admitting Provider Internal Medicine; Emergency Provider Emergency Medicine; PCP Family Medicine; Visit Provider Physician Assistant
DX: J96.01 Acute respiratory failure with hypoxia (principal); I50.33 Acute on chronic diastolic (congestive) heart failure; Z20.822 Contact with and (suspected) exposure to COVID-19; R77.8 Other specified abnormalities of plasma proteins; R82.90 Unspecified abnormal findings in urine; S83.91XA Sprain of unspecified site of right knee, initial encounter; F41.9 Anxiety disorder, unspecified; I27.20 Pulmonary hypertension, unspecified; F32.9 Major depressive disorder, single episode, unspecified; K21.9 Gastro-esophageal reflux disease without esophagitis; E78.5 Hyperlipidemia, unspecified; E03.9 Hypothyroidism, unspecified; G35 Multiple sclerosis; E11.9 Type 2 diabetes mellitus without complications; F03.90 Unspecified dementia, unspecified severity, without behavioral disturbance, psychotic disturbance, mood disturbance, and anxiety; E53.8 Deficiency of other specified B group vitamins; M06.9 Rheumatoid arthritis, unspecified; E66.01 Morbid (severe) obesity due to excess calories; Z83.3 Family history of diabetes mellitus; Z80.1 Family history of malignant neoplasm of trachea, bronchus and lung; Z79.899 Other long term (current) drug therapy; W19.XXXA Unspecified fall, initial encounter
CPT/HCPCS: 36415; 36600; 51701; 71045; 71275; 73562; 80048; 80053; 81001; 82375; 82805; 82948; 83050; 83605; 83690; 83735; 84484; 85025; 85027; 85055; 85610; 85730; 87086; 87088; 87426; 87502; 93005; 93306; 96360; 97165; 99285; A9270; C9803; J0696; J1644; J1650; J1940; J7030; Q9967; U0003; U0005

== ENCOUNTER 2022-07-09 12:27 | Outpatient (CLI) | payer MEDICARE, MEDICAID, SELFPAY ==
--- NOTE | ~2022-07-09 | US_ITS ---
Renal-Bladder ultrasound Clinical History: Chronic kidney disease Technique: Real-time sonographic imaging of the kidneys and urinary bladder was performed. Findings: The right kidney measures 9.4 cm in length and the left kidney measures 8.9 cm. There is mo derate bilateral hydronephrosis, right worse than left. Renal cortical echogenicity is within normal limits. No renal mass lesion is identified. The urinary bladder is partially distended at the time of this exam. There is circumferential urinary bladder wall thickening. No intraluminal mass evident.. Impression: Moderate bilateral hydronephrosis, right worse than left. Circumferential urinary bladder wall thickening. Correlate for cystitis versus other bladder wall thi ckening. Reviewed, dictated and finalized at location . Impression: Moderate bilateral hydronephrosis, right worse than left. Circumferential urinary bladder wall thickening. Correlate for cystitis versus other bladder wall thickening.
== END 2022-07-09 12:28 | disposition home or self-care (01) ==
PROVIDERS: PCP Family Medicine; Visit Provider Family Medicine
DX: N13.30 Unspecified hydronephrosis (principal); N32.89 Other specified disorders of bladder
CPT/HCPCS: 76775

== ENCOUNTER 2022-08-18 09:42 | Outpatient (CLI) | payer MEDICARE, MEDICAID, SELFPAY ==
--- NOTE | ~2022-08-18 | CT_ITS ---
CT Scan of the Chest without Contrast: Clinical Indication: Acute respiratory failure, hypoxia Technique: Contiguous sections were acquired throughout the chest without intravenous contrast. Dose reduction technique was used on this scan by utilizing automated exposure control and iterative recon struction technique. The dose-length product (DLP) was 141.70 mGy-cm. COMPARISON: 07/26/2021 Findings: There is no evidence of any significant mediastinal, hilar or axillary lymphadenopathy. There are ath erosclerotic calcifications of the aorta and coronary arteries. Minimal pericardial fluid present inf eriorly. There is no evidence of pleural or pericardial effusion. The lungs are clear. No pulmonary nodules or infiltrates are noted. Images through the upper abdomen reveal probable moderate right hydronephrosis, partially imaged, wit h air in the right renal collecting system. Probable borderline splenomegaly. Impression: Clear lungs. Probable moderate right hydronephrosis, partially imaged, air in the right renal collecting system. C onsider emphysematous pyelitis. Additional evaluation/workup should be strongly considered. Atherosclerotic calcifications of the aorta and coronary arteries. Minimal pericardial fluid. Probable borderline splenomegaly. Reviewed, dictated and finalized at location . Impression: Clear lungs. Probable moderate right hydronephrosis, partially imaged, air in the right ramiro l collecting system. 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 Additional evaluation/ workup should be strongly considered. Atherosclerotic calcifications of the aorta and coronary arteries. Minimal pericardial fluid. Probable borderline splenomegaly.
== END 2022-08-18 09:43 | disposition home or self-care (01) ==
PROVIDERS: PCP Family Medicine; Visit Provider Family Medicine
DX: J96.01 Acute respiratory failure with hypoxia (principal); I25.10 Atherosclerotic heart disease of native coronary artery without angina pectoris
CPT/HCPCS: 71250

== ENCOUNTER 2022-08-24 10:10 | Outpatient (CLI) | payer MEDICARE, MEDICAID, SELFPAY ==
--- NOTE | ~2022-08-24 | XR_ITS ---
EXAMINATION: XR abdomen/kub 1V INDICATION: Left lower quadrant pain TECHNIQUE: Supine views of the abdomen were obtained on 2 radiographs. COMPARISON: 01/27/2014 FINDINGS: There are multiple gas-filled loops of nondistended bowel. No free intraperitoneal gas is i dentified. There are surgical changes in the stomach. There is severe lumbar spondylosis. Surgical cl ips in the right upper quadrant are likely from prior cholecystectomy. There is mild osteoarthritis o f the hips. IMPRESSION: 1. No radiographic correlate for the patient's symptoms. Reviewed, dictated and finalized at location A.
== END 2022-08-24 10:11 | disposition home or self-care (01) ==
LOC: ANHIMG 10:14
PROVIDERS: PCP Family Medicine; Visit Provider Internal Medicine Gastroenterology
DX: R19.04 Left lower quadrant abdominal swelling, mass and lump (principal)
CPT/HCPCS: 74018

== ENCOUNTER 2022-12-17 07:11 | Outpatient (RCR) | payer OTHER, MEDICARE, MEDICAID, SELFPAY ==
[2022-12-17 07:57] LABS: Hematocrit 26.6 % (37.0-47.0); Hemoglobin 7.9 g/dL (12.0-15.0)
[2022-12-17] MEDS: SODIUM CHLORIDE 0.9% IV 250 ML 30 ML IV CONT (08:57)
[2022-12-17 09:03] VITALS: BP 110/67; PULSE 101; RESP 18; TEMP 37.5; O2SAT 99
[2022-12-17 09:18] VITALS: BP 112/88; PULSE 90; RESP 16; TEMP 37.4; O2SAT 100
[2022-12-17 10:18] VITALS: BP 90/63; PULSE 88; RESP 15; TEMP 36.7; O2SAT 100
[2022-12-17 11:18] VITALS: BP 114/72; PULSE 88; RESP 16; TEMP 36.7; O2SAT 100
[2022-12-17] MEDS: ACETAMINOPHEN 500 MG TABLET 1000 MG PO (11:27)
--- NOTE | 2022-12-17 12:15 | PC.NURSE ---
REPORT CALLED TO [facility] JACOB PARKER AT 1215, AT [phone]. PT. ONLY RECEIVED 1 UNIT PRBC'S PER AMENDED ORDER FROM DR. HOLLINGSWORTH AND NO LASIX. EATING LUNCH NOW. RIDE TO COME FROM [facility] AT 1300.
[2022-12-17 12:18] VITALS: BP 106/65; PULSE 90; RESP 16; TEMP 37.4; O2SAT 100
[2022-12-17 12:33] VITALS: BP 111/72; PULSE 86; RESP 16; TEMP 37.3; O2SAT 100
== END 2023-03-17 23:59 | disposition home or self-care (01) ==
LOC: ANHCPCTRAN 07:11
PROVIDERS: PCP Family Medicine; Visit Provider Family Medicine
DX: D64.9 Anemia, unspecified (principal)
CPT/HCPCS: 36415; 36430; 85014; 85018; 86850; 86900; 86901; 86920; A9270; J7050; P9016

== ENCOUNTER 2023-04-29 22:24 | Inpatient (IN) | payer MEDICARE, MEDICAID, SELFPAY ==
--- NOTE | ~2023-04-29 | XR_ITS ---
EXAMINATION: XR chest 1V Exam Date/Time: 04/29/2023 22:37 HOT MILL SUPERVISOR HISTORY: new onset sob Comparison: 07/26/2021. RESULT: Lines, tubes, and devices: None. Lungs and pleura: Lordotic positioning, leftward rotation. Low volumes. Diffuse reticular pattern, g reater in the right lung which may be secondary to rotation and asymmetric overlying soft tissues. Bi basilar airspace disease greater on the right. Right costophrenic angle blunting. Cardiomediastinal silhouette: Stable. Other: No acute osseous or upper abdominal finding. IMPRESSION: Mild-moderate interstitial edema. Likely bibasilar atelectasis. Infection is not excluded. Small righ t pleural effusion. Reviewed, dictated and finalized at location K. MILL SUPERVISOR IMPRESSION: Mild-moderate interstitial edema. Likely bibasilar atelectasis. Infection is no t excluded. Small right pleural effusion.
--- NOTE | ~2023-04-29 | XR_ITS ---
EXAMINATION: XR chest 1V portable DATE: 05/01/2023 05:48 INDICATION: Congestive heart failure TECHNIQUE: frontal view of the chest was obtained. COMPARISON: Chest radiograph dated 04/29/2023 FINDINGS: Diffuse increased interstitial pattern throughout both lungs. More dense airspace opacities in bilate ral lower lung zones consistent with atelectasis and/or pneumonia with small right pleural effusion a nd possible small left pleural effusion. Cardiomediastinal silhouette within normal limits for AP mayito hnique A couple surgical clips in the left and right upper quadrants of the abdomen. IMPRESSION: 1. Persistent mild pulmonary edema. 2. Unchanged small right-sided and possible small left-sided pleural effusions with associated basila r atelectasis and/or pneumonia at the bilateral lower lung zones. Reviewed, dictated and finalized at location A. TENANCE PLANNING CLERK IMPRESSION: 1. Persistent mild pulmonary edema. 2. Unchanged small right-sided and possible small left-sided pleural effusions with associated basilar atelectasis and/or pneumonia at the bilateral lower bernadine g zones.
--- NOTE | ~2023-04-29 | US_ITS ---
EXAMINATION: US renal BI DATE: 05/01/2023 16:59 INDICATION: Renal failure TECHNIQUE: Multiple grayscale and Doppler ultrasound images of the kidneys were obtained. COMPARISON: 07/01/2022 FINDINGS: Examination limited by body habitus and limited range of motion. The right kidney measures 8.6 x 3.9 x 4.7 cm. The left kidney measures 7.3 x 3.3 x 4.7 cm. The kidneys demonstrate normal parenchymal ech ogenicity. There is mild right pelviectasis. The bladder is decompressed by Kelley catheter. IMPRESSION: Mild right pelviectasis, otherwise unremarkable renal sonogram findings. Reviewed, dictated and finalized at location K. [place] SUPPORT MANAGER
[2023-04-29 22:21] VITALS: BP 111/56; PULSE 103; RESP 14; TEMP 36.4; O2SAT 89
--- NOTE | 2023-04-29 22:28 | ECG_ITS ---
Measurements Intervals [place] Rate: 100 P: 7 HI: 126 QRS: -7 QRSD: 96 T: 152 QT: 345 QTc: 445 Interpretive Statements SINUS TACHYCARDIA PREVIOUS ANTEROSEPTAL INFARCTION LOW QRS VOLTAGE IN EXTREMITY LEADS [QRS DEFLECTION < 0.5 mV IN LIMB LEADS] NONSPECIFIC T-WAVE ABNORMALITY ABNORMAL ECG COMPARED TO ECG 07/26/2021 22:01:30 PREVIOUSLY SEEN INFERIOR Q-WAVES ARE NOT PRESENT, CURRENT TRACING IS NOT DIAGNOSTIC OF PRIOR INFERIOR NE Electronically Signed On 04-30-2023 8:26:04 CHIEF OF SAFETY AND PROTECTION by Adarsh Ricardo M.D.
[2023-04-29 22:29] VITALS: PULSE 97; O2SAT 95
[2023-04-30] VITALS (69 sets, daily range): BP systolic 82–163; BP diastolic 51–149; PULSE 86–103; RESP 14–24; TEMP 36.3–36.6; O2SAT 94–100
[2023-04-30 00:18] LABS: Basophils Percent Auto 0.7 % (0.2-1.2); Hematocrit 24.1 % (37.0-47.0); Immature Granulocyte Absolute 0.01 K/mm3 (0.00-0.031); Immature Granulocyte Percent A 0.2 % (0-0.5); Lymphocytes Absolute Auto 0.54 K/mm3 (0.9-3.2); Lymphocytes Percent Auto 12.9 % (18.3-44.2); Mean Corpuscular Hemoglobin 31.8 pg (26-34); Mean Corpuscular Volume 109.5 fl (80-100); Mean Platelet Volume 10.1 fl (7.4-10.4); Monocytes Absolute Auto 0.2 K/mm3 (0.1-0.6); Monocytes Percent Auto 5.5 % (2.6-8.5); Neutrophils Absolute Auto 3.3 K/mm3 (1.3-6.7); Neutrophils Percent Auto 79.7 % (45.5-73.1); Platelet Count Result 143 k/mm3 (150-375); Red Cell Distribution Width 14.7 % (11.5-14.5); White Blood Count 4.2 K/mm3 (4.5-10.0)
[2023-04-30 00:28] LABS: Lipase 49 U/L (23-300); Magnesium 1.9 mg/dL (1.6-2.3); Phosphorus 4.7 mg/dL (2.5-4.5)
[2023-04-30 00:29] LABS: Alanine Aminotransferase 16 U/L (6-35); Albumin Level 2.6 g/dL (3.5-5.1); Alkaline Phosphatase 143 U/L (38-126); Anion Gap 5 mmol/L (8-16); Aspartate Amino Transferase 20 U/L (14-36); Bilirubin,Total 0.3 mg/dL (0.2-1.3); Blood Urea Nitrogen 43 mg/dL (7-17); Calcium 7.8 mg/dL (8.4-10.2); Carbon Dioxide 22 mmol/L (22-30); Chloride 117 mmol/L (98-107); Estimated Glomerular Filt Rate 17; Glucose 137 mg/dL (65-110); INR 1.2; Lactic Acid Reflex 1.3 mmol/L (0.7-2.0); Partial Thromboplastin Time 31.6 SECONDS (22.3-36.8); Potassium 4.6 mmol/L (3.4-5.0); Prothrombin Time 16.1 Seconds (11.1-14.7); Sodium 144 mmol/L (137-145)
[2023-04-30 00:41] LABS: Troponin I 0.017 ng/mL (0.000-0.034)
[2023-04-30 00:46] LABS: Influenza A QL RT-PCR Negative (Negative); Influenza B QL RT-PCR Negative (Negative); RSV RNA, RT-PCR Negative (Negative); SARS-CoV-2 RNA PCR Negative (Negative)
[2023-04-30 00:46] LABS: Schistocytes Rare (NORMAL)
[2023-04-30 01:13] LABS: Platelet Estimate Adequate (Adequate)
[2023-04-30 02:04] LABS: Appearance Urine Turbid (Clear); Bacteria Urine 4+ /hpf; Bilirubin Urine Negative (Negative); Blood Urine 2+ (Negative); Color Urine Yellow (Yellow); Glucose Urine UA Negative (Negative); Ketones Urine Negative (Negative); Leukocyte Esterase Ur 3+ LEU/UL (Negative); Need Manual Microscopic Reviewed; Nitrate Urine Positive (Negative); Protein Urine 2+ mg/dL (Negative); Specific Grav Ur 1.011 (1.001-1.035); Squamous Epithelial Cell Urine Occasional /hpf (Few); Urobilinogen Urine 0.2 mg/dL (<2.0); WBC Urine >100 /hpf; pH Urine 6.5 (5.0-9.0)
[2023-04-30 02:06] LABS: Add Urine Microscopic? YES
[2023-04-30 02:14] LABS: Free T4 Free Thyroxine Reflex 0.97 ng/dL (0.78-2.19)
[2023-04-30 02:37] LABS: NT Pro B Type Natriuretic Pept > 30000 pg/mL (19.9-100)
[2023-04-30 03:03] LABS: Immature Reticulocyte Fraction 8.7 % (3.0-15.9); Reticulocyte Percent 1.34 % (0.7-4.3); Reticulocytes Absolute 0.03 M/mm3 (0.02-0.1)
--- NOTE | 2023-04-30 03:13 | ED.GENADULT ---
HPI - General Adult General Chief complaint: Shortness of Breath/Dyspnea Stated complaint: sob Time Seen by Provider: 04/29/23 22:47 History of Present Illness HPI narrative: This is a 77-year-old female presenting ED with chief shortness of breath. Patient says over last several weeks she has been progressively more short of breath. Associated with a cough lower extremity edema. She denies fevers chills chest pain abdominal pain or urinary symptoms. Related Data Home Medications Medication Instructions Recorded Confirmed ergocalciferol (vitamin D2) 1,250 1,250 mcg PO MONTHLY 07/26/21 03/03/23 mcg (50,000 unit) capsule levothyroxine 75 mcg tablet 75 mcg PO DAILY 07/26/21 03/03/23 memantine 28 mg capsule 28 mg PO DAILY 07/26/21 03/03/23 sprinkle,extended release 24hr nystatin 100,000 unit/gram topical 1 applic topical TID PRN Rash 07/26/21 03/03/23 cream omeprazole 20 mg capsule,delayed 20 mg PO DAILY 07/26/21 03/03/23 release propranolol 20 mg tablet 20 mg PO TID 07/26/21 03/03/23 Lactobacillus acidophilus 1 cap PO BID 07/27/21 03/03/23 (Acidophilus capsule) acetaminophen 325 mg tablet 325 mg PO Q6H PRN Pain 07/27/21 03/03/23 bisacodyl 5 mg tablet,delayed 10 mg PO 2XW PRN Constipation 07/27/21 03/03/23 release cholecalciferol (vitamin D3) 25 50 mcg PO BID 07/27/21 03/03/23 mcg (1,000 unit) tablet (Vitamin D3) cranberry fruit 450 mg tablet 450 mg PO TID 07/27/21 03/03/23 (cranberry) cyclosporine 0.05 % eye drops in a 1 drp EACH EYE BID 07/27/21 03/03/23 dropperette (Restasis) ferrous sulfate 325 mg (65 mg 325 mg PO BID 07/27/21 03/03/23 iron) tablet,delayed release fluticasone propionate 50 1 spray intranasal DAILY 07/27/21 03/03/23 mcg/actuation nasal spray,suspension hydrocortisone 1 % topical cream 1 applic topical BID PRN Itching 07/27/21 03/03/23 ipratropium 0.5 mg-albuterol 3 mg 3 ml inhalation Q8H PRN Cough 07/27/21 03/03/23 (2.5 mg base)/3 mL nebulization soln loperamide 2 mg tablet (Imodium 2 mg PO QID PRN Diarrhea 07/27/21 03/03/23 A-D) melatonin 5 mg tablet 8 mg PO HS PRN Insomnia 07/27/21 03/03/23 menthol 0.44 %-zinc oxide 20.6 % 1 applic topical BID 07/27/21 03/03/23 topical ointment (Calmoseptine) polyethylene glycol 3350 17 gram 17 g PO DAILY PRN Constipation 07/27/21 03/03/23 oral powder packet sennosides 8.6 mg tablet (Senna 8.6 mg PO DAILY PRN Constipation 07/27/21 03/03/23 Lax) Allergies Allergy/AdvReac Type Severity Reaction Status Date / Time Penicillins Allergy Unknown Rash Verified 04/29/23 22:31 [facility], [facility] Past Medical History Medical History Anxiety B12 deficiency Chronic bronchitis Chronic pancreatitis Dementia Depression Diastolic dysfunction Noted on echocardiogram 2015, EF 65%, moderate LVH Diet-controlled type 2 diabetes mellitus GERD (gastroesophageal reflux disease) Hyperlipidemia Hypothyroidism Intracranial bleed Noted on MRI May 2016: 8 mm lesion in the right temporal lobe consistent with acute intraparenchymal hematoma Kidney stones Multiple sclerosis Optic neuritis due to multiple sclerosis Pulmonary hypertension Mild, noted on echocardiogram 2015 RVSP of 40 Respiratory failure requiring intubation (01/2014) Rheumatoid arthritis Small bowel obstruction Spinal stenosis With history of pain pump insertion and subsequent removal. Surgical History Surgical History History of cholecystectomy History of colonoscopy with polypectomy Most recent colonoscopy in 2017 demonstrate no polyps History of gastric bypass History of hysterectomy Due to fibroids and endometriosis History of inguinal hernia repair Reportedly 12 times Hx of tonsillectomy Status post cataract extraction of both eyes with insertion of intraocular lens Family History Family History Sibling
--- NOTE | 2023-04-30 03:28 | ECG_ITS ---
Measurements Intervals [place] Rate: 89 P: 13 FL: 126 QRS: 7 QRSD: 96 T: 169 QT: 382 QTc: 467 Interpretive Statements SINUS RHYTHM PREVIOUS ANTEROSEPTAL INFARCTION LOW-VOLTAGE QRS NONSPECIFIC T-WAVE ABNORMALITY ABNORMAL ECG COMPARED TO ECG 04/29/2023 22:26:13 NO DIFFERENCE Electronically Signed On 04-30-2023 8:31:04 PAYROLL SPECIALIST by Adarsh Ricardo M.D.
--- NOTE | 2023-04-30 03:34 | PC.NURSE ---
this rn spoke with edp dr. garcia about administration of lasix. pt blood pressure at this time is 99/58. this rn verbally confirmed edp dr. garcia wanted administration of lasix. edp dr. garcia verbally okayed administration of lasix to be when blood transfusion was to be started. this rn used closed loop communication to confirm time change of medication administration.
[2023-04-30 03:37] LABS: Total Triiodothyronine (T3) 0.89 NG/ML (0.97-1.69)
[2023-04-30 04:02] LABS: Troponin I 0.021 ng/mL (0.000-0.034)
--- NOTE | 2023-04-30 04:08 | PM.IMHP ---
H&P: HPI History of Present Illness Date/Time: 04/30/23 04:08 Chief Complaint: Shortness of breath Narrative: This is a 77-year-old female with multiple comorbidities, she states she uses 2 L of oxygen at home, she presented to the with chief shortness of breath.? Patient says over last several weeks she has been progressively more short of breath.? Associated with a cough lower extremity edema and extreme weakness.? She denies fevers chills chest pain abdominal pain or urinary symptoms. She was found to be anemic with hemoglobin of 7.0, and also has pulmonary edema, her BNP is greater than 30,000. Blood transfusion was initiated as well as diuresis with furosemide and I was called to admit this patient for further evaluation Review of Systems Review of Systems: All systems reviewed & are unremarkable except as noted in HPI and below PMFSH Past Medical History Medical History Anxiety B12 deficiency Chronic bronchitis Chronic pancreatitis Dementia Depression Diastolic dysfunction Noted on echocardiogram 2015, EF 65%, moderate LVH Diet-controlled type 2 diabetes mellitus GERD (gastroesophageal reflux disease) Hyperlipidemia Hypothyroidism Intracranial bleed Noted on MRI May 2016: 8 mm lesion in the right temporal lobe consistent with acute intraparenchymal hematoma Kidney stones Multiple sclerosis Optic neuritis due to multiple sclerosis Pulmonary hypertension Mild, noted on echocardiogram 2015 RVSP of 40 Respiratory failure requiring intubation (01/2014) Rheumatoid arthritis Small bowel obstruction Spinal stenosis With history of pain pump insertion and subsequent removal. Surgical History Surgical History History of cholecystectomy History of colonoscopy with polypectomy Most recent colonoscopy in 2016 demonstrate no polyps History of gastric bypass History of hysterectomy Due to fibroids and endometriosis History of inguinal hernia repair Reportedly 12 times Hx of tonsillectomy Status post cataract extraction of both eyes with insertion of intraocular lens Family History Family History Sibling Rheumatoid arthritis Lung cancer COPD (chronic obstructive pulmonary disease) Father Esophageal cancer Mother Diabetes mellitus Social History Social History Social History: Code status: Patient states she would not want cardiac resuscitation. She is uncertain if she would want intubation. She will defer whether not she gets placed on a ventilator to her Healthcare power of corporate associate attorney. Healthcare power of corporate associate attorney: Naomy Finney (close friend) Smoking status: Never smoker Alcohol intake: never Substance use: never Living arrangements: assisted living Additional living arrangements comments: She is and lives at [facility]. She has 2 adopted children who live in [place]. 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 Spiritual care concerns: No Meds Home Medications and Allergies Home Medications Medication Instructions Recorded Confirmed Type ergocalciferol (vitamin D2) 1,250 1,250 mcg PO MONTHLY 07/26/21 03/03/23 History mcg (50,000 unit) capsule levothyroxine 75 mcg tablet 75 mcg PO DAILY 07/26/21 03/03/23 History memantine 28 mg capsule 28 mg PO DAILY 07/26/21 03/03/23 History sprinkle,extended release 24hr nystatin 100,000 unit/gram topical 1 applic topical TID PRN Rash 07/26/21 03/03/23 History cream omeprazole 20 mg capsule,delayed 20 mg PO DAILY 07/26/21 03/03/23 History release propranolol 20 mg tablet 20 mg PO TID 07/26/21 03/03/23 History Lactobacillus acidophilus 1 cap PO BID 07/27/21 03/03/23 History (Acidophilus capsule) acetaminophen 325 mg tablet 325 mg PO Q6H MD
[2023-04-30 04:16] LABS: Folic Acid 6.8 ng/mL (2.76->20)
[2023-04-30] MEDS: AZITHROMYCIN 500 MG/NS 250 ML 500 MG/250 ML BAG 250 MG IVPB (04:55)
[2023-04-30] MEDS: FUROSEMIDE INJ 40 MG/4 ML VIAL IV PUSH (05:05)
--- NOTE | 2023-04-30 05:05 | PC.NURSE ---
due to increased in pt blood pressure, this rn spoke with edp dr. garcia about administration of lasix. edp dr. garcia verbally okayed administration of 40mg of lasix iv push.
[2023-04-30] MEDS: SODIUM CHLORIDE 0.9% IV 250 ML 30 ML IV CONT (06:15)
[2023-04-30] MEDS: TUBING, BLOOD PLUM PUMP TUBING 1 EACH XX (06:30)
--- NOTE | 2023-04-30 09:18 | PM.IMPN ---
Progress Note: A&P Assessment and Plan (1) CHF (congestive heart failure): Code(s): I50.9 - Heart failure, unspecified Status: Acute Assessment and Plan: Patient with a history of diastolic CHF. Presents shortness of breath and increasing pedal edema. Also with orthopnea for the past few days. Chest x-ray shows pulmonary edema with probably right pleural effusion. Images reviewed personally. BNP greater than 30 K. suspect acute on chronic diastolic CHF. Cannot exclude right lower lobe pneumonia although felt less likely. She has been started on Rocephin and azithromycin. She has a cough that is nonproductive. White count is normal. IV Lasix given around 5:00 a.m. blood pressure dropped to 82/57. She did receive a unit of blood. Blood pressure is better. Will resume Lasix at 20 mg IV q.12 with 1st dose now. Wean oxygen as tolerated. (2) Anemia, macrocytic: Code(s): D53.9 - Nutritional anemia, unspecified Status: Acute Assessment and Plan: Hemoglobin was 7.9 in December. Hemoglobin 7.0 on admission here. Consider CHF from high-output failure although probably less likely since this anemia seems to be more chronic. B12 and folate levels normal. Will try to add on iron studies. She received 1 unit packed red blood cells in the ED. Monitor H&H serially. Transfuse as needed (3) Acute UTI: Code(s): N39.0 - Urinary tract infection, site not specified Status: Acute Assessment and Plan: UA is consistent with UTI. UCx collected. Rocephin started. UCx pending. Follow up on UCx results. (4) Decubitus ulcer, heel: Code(s): L89.609 - Pressure ulcer of unspecified heel, unspecified stage Status: Acute Assessment and Plan: Patient with to chronic heel ulcers that are improving per patient. This is managed at the [facility]. Wound care consult Plan DVT prophylax -SCDs Code status -DNR Subjective Date/time seen: 04/30/23 09:18 Interval history: 77yo female with MS, CKD, RA, diabetes, pulmonary hypertension and diastolic CHF here for shortness of breath. Patient states that she has never been told she has anemia. She does have a history of CKD that worsened about a year and a half ago. She is not close to dialysis per her contour grinder. She has been having black stools but is on iron. No nausea or vomiting. No chest pain. She has been having shortness of breath with orthopnea. She has noted pedal edema for the past 2 weeks. She has been on oxygen at the [facility] for the past 5 days. She does not walk but is in a wheelchair due to her MS. She is not on treatment for MS. She is active otherwise. She has a history of rectal bleeding about 2 years ago but colonoscopy did not reveal source. Exam Narrative: AF 97.4 116/68 89 19 100% 2L Gen -thin, pale female in acute distress lying semi recumbent in bed Chest -decreased breath sounds in the bases right greater than left CV - RRR S1/S2 Abd - Soft, NT/ND, Positive BS -fully secured draining clear yellow urine Ext - trace-1+ pedal edema Neuro - Alert and oriented x4. Psych - Nml mood and affect Skin - Pale and dry. 2 shallow ulcers left heel Objective Data Vital Signs Vital Signs: Vital Signs - 24 hr 04/29/23 22:21 04/29/23 22:29 04/29/23 22:29 Temperature 97.6 F Pulse Rate 103 H 97 Respiratory Rate 14 Blood Pressure 111/56 L Pulse Oximetry 89 L 95 Oxygen Delivery Room Air Nasal Cannula Oxygen Flow Rate 2 04/30/23 00:02 04/30/23 00:31 04/30/23 00:46 Temperature Pulse Rate 91 91 95 Respiratory Rate 17 18 20 Blood Pressure 103/57 L 108/59 L 112/62 Pulse Oximetry Oxygen Delivery Oxygen Flow Rate 04/30/23 01:16 04/30/23 01:31 04/30/23 01:46 Temperature Pulse Rate 93 94 94 Respiratory Rate 20 19 21 H Blood Pressure 113/63 106/65 108/61 Pulse Oximetry 97 96 Oxygen Delivery Oxygen Flow Rate 04/30/23 02:48
[2023-04-30] MEDS: FUROSEMIDE INJ 40 MG/4 ML VIAL 20 MG IV PUSH ×2 (10:30→17:28)
[2023-04-30 11:42] LABS: Hemoglobin 9.4 g/dL (12.0-15.0)
[2023-04-30 11:50] LABS: Anion Gap 5 mmol/L (8-16); Blood Urea Nitrogen 43 mg/dL (7-17); Calcium 7.9 mg/dL (8.4-10.2); Carbon Dioxide 24 mmol/L (22-30); Chloride 116 mmol/L (98-107); Creatine Kinase 39 U/L (30-135); Estimated Glomerular Filt Rate 17; Glucose 137 mg/dL (65-110); Lactate Dehydrogenase 157 U/L (120-246); Lipase 59 U/L (23-300); Phosphorus 4.5 mg/dL (2.5-4.5); Potassium 4.5 mmol/L (3.4-5.0); Sodium 145 mmol/L (137-145)
[2023-04-30 11:56] LABS: Iron 66 ug/dL (37-170)
--- NOTE | 2023-04-30 12:03 | PC.NURSE ---
heart healthy lunch tray ordered
[2023-04-30 12:06] LABS: Percent Iron Saturation 33 % (20-50)
[2023-04-30 19:09] LABS: Hematocrit 32.4 % (37.0-47.0); Hemoglobin 9.7 g/dL (12.0-15.0)
[2023-04-30 19:15] LABS: IFOB Positive Control Positive; Immunochemical Fecal Occult Bl Positive (N)
[2023-05-01] VITALS (11 sets, daily range): BP systolic 117–136; BP diastolic 66–78; PULSE 89–105; RESP 16–20; TEMP 36.1–37.1; O2SAT 91–100
[2023-05-01 00:36] LABS: Hematocrit 29.5 % (37.0-47.0); Hemoglobin 8.8 g/dL (12.0-15.0)
[2023-05-01] MEDS: LEVOTHYROXINE SODIUM 75 MCG TABLET PO (05:34)
[2023-05-01] MEDS: AZITHROMYCIN 500 MG/NS 250 ML 500 MG/250 ML BAG 250 MG IVPB (05:34)
[2023-05-01 06:20] LABS: Basophils Percent Auto 0.9 % (0.2-1.2); Eosinophils Absolute Auto 0.1 K/mm3 (0-0.3); Eosinophils Percent Auto 2.9 % (0-4.4); Hemoglobin 9.1 g/dL (12.0-15.0); Immature Granulocyte Absolute 0.02 K/mm3 (0.00-0.031); Immature Granulocyte Percent A 0.6 % (0-0.5); Lymphocytes Absolute Auto 0.65 K/mm3 (0.9-3.2); Lymphocytes Percent Auto 18.6 % (18.3-44.2); Mean Corpuscular HGB Conc 29.4 g/dl (32-36); Mean Corpuscular Hemoglobin 31.4 pg (26-34); Mean Corpuscular Volume 106.9 fl (80-100); Monocytes Absolute Auto 0.3 K/mm3 (0.1-0.6); Neutrophils Absolute Auto 2.4 K/mm3 (1.3-6.7); Platelet Count Result 131 k/mm3 (150-375); Red Cell Distribution Width 16.4 % (11.5-14.5); White Blood Count 3.5 K/mm3 (4.5-10.0)
[2023-05-01 06:40] LABS: Anion Gap 4 mmol/L (8-16); Blood Urea Nitrogen 40 mg/dL (7-17); CRP 0.7 mg/dL (<1.0); Calcium 7.9 mg/dL (8.4-10.2); Carbon Dioxide 24 mmol/L (22-30); Chloride 116 mmol/L (98-107); Estimated Glomerular Filt Rate 17; Glucose 92 mg/dL (65-110); Magnesium 1.8 mg/dL (1.6-2.3); Phosphorus 4.8 mg/dL (2.5-4.5); Potassium 4.5 mmol/L (3.4-5.0); Sodium 144 mmol/L (137-145)
[2023-05-01 07:38] LABS: Anisocytosis 1+ (NORMAL); Hypochromasia 1+ (NORMAL); Schistocytes None Seen (NORMAL)
[2023-05-01] MEDS: FUROSEMIDE INJ 40 MG/4 ML VIAL 20 MG IV PUSH (09:44)
[2023-05-01] MEDS: FLUTICASONE PROPIONATE 0.05% NA SPR 16 GM BTL (*BKC) 1 SPRAY NASAL (09:44)
[2023-05-01] MEDS: cycloSPORINE 0.4 ML OPHTH SOLUTION 1 DROP EACH EYE ×2 (09:45→20:58)
[2023-05-01] MEDS: MIRTAZAPINE 15 MG TABLET PO (09:46)
[2023-05-01] MEDS: ESCITALOPRAM OXALATE 10 MG TABLET PO (09:46)
[2023-05-01] MEDS: PANTOPRAZOLE 40 MG TABLET PO (09:46)
[2023-05-01] MEDS: ACIDOPHILUS/BULGARICUS CHEWABLE TABLET 1 TABLET PO ×2 (09:46→17:31)
[2023-05-01] MEDS: CHOLECALCIFEROL 1,000 UNITS TABLET 1000 UNITS PO ×2 (09:46→17:31)
--- NOTE | 2023-05-01 11:52 | PM.IMPN ---
Progress Note: A&P Assessment and Plan (1) CHF (congestive heart failure): Code(s): I50.9 - Heart failure, unspecified Status: Acute Assessment and Plan: Patient with a history of diastolic CHF. Presents shortness of breath and increasing pedal edema. Also with orthopnea for the past few days. Chest x-ray shows pulmonary edema with probably right pleural effusion. Images reviewed personally. BNP greater than 30 K. Acute on chronic diastolic CHF possibly related to anemia. Cannot exclude right lower lobe pneumonia although felt less likely. She has a cough that is nonproductive. White count is normal. She was started on Rocephin and azithromycin. IV Lasix given but blood pressure dropped to 82/57. She did receive a unit of blood. Blood pressure is better. Renal function stable. Continue Lasix IV. Will advance dose (2) Anemia, macrocytic: Code(s): D53.9 - Nutritional anemia, unspecified Status: Acute Assessment and Plan: Hemoglobin was 7.9 in December. Hemoglobin 7.0 on admission here. Consider CHF from high-output failure although probably less likely since this anemia seems to be more chronic. B12 and folate levels normal. Iron studies noted. Stool guiac positive. LDH normal. She received 1 unit packed red blood cells in the ED. Hgb 9.1 Monitor H&H serially. Transfuse as needed. GI consult. PPI. (3) Acute UTI: Code(s): N39.0 - Urinary tract infection, site not specified Status: Acute Assessment and Plan: UA is consistent with UTI. UCx collected. Rocephin started. UCx pending. Follow up on UCx results. (4) Decubitus ulcer, heel: Code(s): L89.609 - Pressure ulcer of unspecified heel, unspecified stage Status: Acute Assessment and Plan: Patient with to chronic heel ulcers that are improving per patient. This is managed at the longterm. Wound care consult (5) Renal failure: Code(s): N19 - Unspecified kidney failure Status: Acute Assessment and Plan: Cr elevated on admission at 2.7. Last value of 0.9 was noted 2 years ago Patient states she has known renal failure but baseline is unknown. TCK normal. Cr stable and she is tolerating diuresis. Consider nephrotic syndrome but proteinuria could be from the UTI Continue IV lasix Plan DVT prophylax -SCDs Code status -DNR Subjective Date/time seen: 05/01/23 11:52 Interval history: 77yo female with MS, CKD, RA, diabetes, pulmonary hypertension and diastolic CHF here for shortness of breath. Slept well. No orthopnea. No CP. Not on home O2. Exam Narrative: AF 97.0 117/66 97 16 96% ra Gen -NARD Chest -decreased breath sounds in the bases CV - RRR S1/S2. Tele showing PVCs Abd - Soft, NT/ND, Positive BS - Kelley secured draining clear yellow urine Ext - trace pedal edema; bilateral flank edema Neuro - Alert and appropriate Psych - Nml mood and affect Skin - Pale and dry. bilateral heels ulcers Objective Data Vital Signs Vital Signs: Vital Signs - 24 hr 04/30/23 12:00 04/30/23 12:01 04/30/23 12:15 Temperature Pulse Rate 98 Respiratory Rate Blood Pressure 120/73 Pulse Oximetry 100 100 99 Oxygen Delivery Oxygen Flow Rate 04/30/23 12:16 04/30/23 12:30 04/30/23 12:31 Temperature Pulse Rate 99 101 H 101 H Respiratory Rate 16 20 Blood Pressure 125/82 115/70 Pulse Oximetry 99 100 100 Oxygen Delivery Oxygen Flow Rate 04/30/23 13:02 04/30/23 13:03 04/30/23 14:00 Temperature 97.5 F L Pulse Rate 96 103 H Respiratory Rate 19 22 H Blood Pressure 163/149 H 129/69 Pulse Oximetry 100 95 100 Oxygen Delivery Oxygen Flow Rate 04/30/23 16:00 04/30/23 19:32 04/30/23 20:46 Temperature 97.6 F 97.9 F Pulse Rate 98 102 H 97 Respiratory Rate 22 H 18 Blood Pressure 142/84 H 134/74 Pulse Oximetry 100 100 Oxygen Delivery Oxygen Flow Rate 04/30/23 20:00 04/30/23 20
[2023-05-01] MEDS: FERROUS SULFATE 325 MG TABLET DR PO ×2 (12:47→17:32)
[2023-05-01] MEDS: FUROSEMIDE INJ 40 MG/4 ML VIAL IV PUSH (17:31)
[2023-05-01] MEDS: ACETAMINOPHEN 325 MG TABLET 650 MG PO (17:31)
[2023-05-01] MEDS: MELATONIN 5 MG TABLET PO (20:58)
[2023-05-01] MEDS: MELATONIN 3 MG TABLET PO (20:58)
[2023-05-01] MEDS: PANTOPRAZOLE SODIUM IV 40 MG VIAL IV PUSH (20:58)
[2023-05-02] VITALS (9 sets, daily range): BP systolic 121–136; BP diastolic 66–77; PULSE 95–109; RESP 16–18; TEMP 36.1–36.3; O2SAT 93–99
--- NOTE | 2023-05-02 | ECHO_ITS ---
Patient Info Name: Alejandra Gray Age: 77 years : 1945 Gender: Female Ht: 64 in Wt: 120 lbs BSA: 1.57 m2 HR: 103 bpm BP: 136 / 77 mmHg Heart Rhythm: Sinus Rhythm, Tachycardia Technical Quality: Fair Exam Date: 05/02/2023 7:45 AM Exam Location: Echo Lab Patient Status: Inpatient Admit Date: 04/30/2023 Staff Ordering Physician: Ortiz Ny MD Cook Fry: Attending Provider: Gail Mcgraw MD Referring Physician: Anant MILLS; Exam Type: CA echo dop color flow w con Study Info Indications I50.20 - Unspecified systolic (congestive) heart failure Complete two-dimensional, color flow and Doppler transthoracic echocardiogram is performed with contrast to opacify the left ventricle and to improve the deliniation of the left ventricle endocardial borders. Contrast/Agitated Saline Contrast/Ag. Saline: Definity Amount: 1.00 ml Existing IV Access: Yes Summary 1. Left ventricular chamber dimension is normal. 2. Left ventricular systolic function is moderately reduced, estimated at 30-35% with relative sparing of the bases. 3. There is moderately increased left ventricular wall thickness. 4. The left ventricular diastolic function is abnormal. 5. There is no aortic valve stenosis with a peak velocity of 161.20 cm/s, mean gradient of 5 mmHg, and aortic valve area of 2.24 cm2. 6. There is trace aortic valve regurgitation. 7. There is mild mitral valve regurgitation. 8. There is mild tricuspid valve regurgitation. 9. Moderate pulmonary hypertension, estimated pulmonary arterial systolic pressure is 51 mmHg. 10. There is moderate pericardial effusion without hemodynamic evidence for tamponade physiology. There is evidence for RA free wall invagination suggestive of increased intrapericardial pressure. Left Ventricle Left ventricular chamber dimension is normal. Left ventricular systolic function is moderately reduced, estimated at 30-35% with relative sparing of the bases. There is moderately increased left ventricular wall thickness. The left ventricular diastolic function is abnormal. Right Ventricle Right ventricular chamber dimension is normal. Right ventricular systolic function is normal. Left Atria Left atrial chamber dimension is normal. Right Atria Right atrial chamber dimension is normal. Aortic Valve The aortic valve is trileaflet. There is mild aortic valve sclerosis. There is no aortic valve stenosis with a peak velocity of 161.20 cm/s, mean gradient of 5 mmHg, and aortic valve area of 2.24 cm2. There is trace aortic valve regurgitation. Pulmonic Valve The pulmonic valve is not well visualized. Mitral Valve The mitral valve has thickened leaflets. There is mild mitral valve regurgitation. The mitral valve annulus is severely calcified. Tricuspid Valve The tricuspid valve leaflets are normal. There is mild tricuspid valve regurgitation. Moderate pulmonary hypertension, estimated pulmonary arterial systolic pressure is 51 mmHg. Pericardium/Pleural The pericardium appears normal. There is moderate pericardial effusion without hemodynamic evidence for tamponade physiology. There is evidence for RA free wall invagination suggestive of increased intrapericardial pressure. Inferior Vena Cava Normal inferior vena cava with >50% collapse upon inspiration consistent with normal right atrial pressure, 5 mmHg. Aorta The aortic root size at the sinus of Valsalva is normal. The prox ascending aorta size is mildly dilated. Left Ventricular Outflow Tract
[2023-05-02] MEDS: ACETAMINOPHEN 325 MG TABLET 650 MG PO (02:15)
[2023-05-02] MEDS: AZITHROMYCIN 500 MG/NS 250 ML 500 MG/250 ML BAG 250 MG IVPB (05:20)
[2023-05-02] MEDS: LEVOTHYROXINE SODIUM 75 MCG TABLET PO (05:20)
[2023-05-02 06:31] LABS: Basophils Percent Auto 0.8 % (0.2-1.2); Eosinophils Absolute Auto 0.1 K/mm3 (0-0.3); Eosinophils Percent Auto 2.3 % (0-4.4); Hematocrit 34.8 % (37.0-47.0); Hemoglobin 10.5 g/dL (12.0-15.0); Immature Granulocyte Absolute 0.01 K/mm3 (0.00-0.031); Immature Granulocyte Percent A 0.2 % (0-0.5); Lymphocytes Absolute Auto 0.94 K/mm3 (0.9-3.2); Lymphocytes Percent Auto 19.4 % (18.3-44.2); Mean Corpuscular HGB Conc 30.2 g/dl (32-36); Mean Corpuscular Hemoglobin 31.3 pg (26-34); Mean Corpuscular Volume 103.6 fl (80-100); Monocytes Absolute Auto 0.3 K/mm3 (0.1-0.6); Monocytes Percent Auto 5.6 % (2.6-8.5); Neutrophils Absolute Auto 3.5 K/mm3 (1.3-6.7); Neutrophils Percent Auto 71.7 % (45.5-73.1); Platelet Count Result 149 k/mm3 (150-375); Red Blood Count 3.36 M/mm3 (4.2-5.4); Red Cell Distribution Width 15.7 % (11.5-14.5); White Blood Count 4.9 K/mm3 (4.5-10.0)
[2023-05-02 06:59] LABS: Alanine Aminotransferase 13 U/L (6-35); Albumin Level 2.8 g/dL (3.5-5.1); Alkaline Phosphatase 151 U/L (38-126); Anion Gap 9 mmol/L (8-16); Aspartate Amino Transferase 15 U/L (14-36); Bilirubin,Total 0.2 mg/dL (0.2-1.3); Blood Urea Nitrogen 41 mg/dL (7-17); Calcium 7.9 mg/dL (8.4-10.2); Carbon Dioxide 22 mmol/L (22-30); Chloride 114 mmol/L (98-107); Estimated Glomerular Filt Rate 18; Glucose 122 mg/dL (65-110); Phosphorus 4.5 mg/dL (2.5-4.5); Sodium 145 mmol/L (137-145)
[2023-05-02] MEDS: PERFLUTREN LIPID MICROSPHERES 1.5 ML VIAL DILUTED TO 10 ML TOTAL VOLUME IV PUSH (08:47)
--- NOTE | 2023-05-02 08:55 | IVDEFINITY ---
Prior to administration of IV Definity the patient was educated on the risks and benefits of the imaging enhancing agent including potential adverse side effects. The patient verbalized understanding. Allergies were verified. No exclusion criteria were identified and at least one of the following inclusion criteria were met: 1) physician request, 2) patient technically difficult to image (per the [place] [employer] guidelines of two or more segments not discernable within the apical view), or 3) questionable left ventricular function. ?
[2023-05-02] MEDS: cycloSPORINE 0.4 ML OPHTH SOLUTION 1 DROP EACH EYE ×2 (09:01→20:35)
[2023-05-02] MEDS: ESCITALOPRAM OXALATE 10 MG TABLET PO (09:03)
[2023-05-02] MEDS: ACIDOPHILUS/BULGARICUS CHEWABLE TABLET 1 TABLET PO ×2 (09:03→16:29)
[2023-05-02] MEDS: CHOLECALCIFEROL 1,000 UNITS TABLET 1000 UNITS PO ×2 (09:03→16:29)
[2023-05-02] MEDS: MIRTAZAPINE 15 MG TABLET PO (09:03)
[2023-05-02] MEDS: FLUTICASONE PROPIONATE 0.05% NA SPR 16 GM BTL (*BKC) 1 SPRAY NASAL (09:04)
[2023-05-02] MEDS: FUROSEMIDE INJ 40 MG/4 ML VIAL IV PUSH (09:09)
[2023-05-02] MEDS: PANTOPRAZOLE SODIUM IV 40 MG VIAL IV PUSH ×2 (09:09→20:35)
--- NOTE | 2023-05-02 12:19 | WPDGICN ---
Assessment and Plan Assessment and plan (1) Blood in stool: Code(s): K92.1 - Melena Status: Acute Assessment and Plan: FOBT is positive. She has had not had any overt bleeding. She states that a couple months ago she was at [facility] and they performed a colonoscopy which was said to be normal. Her last colonoscopy here was 7 years ago. I will try to obtain the records from her recent colonoscopy. (2) Anemia, macrocytic: Code(s): D53.9 - Nutritional anemia, unspecified Status: Acute Assessment and Plan: MCV is 108. Her iron levels are normal. Likewise folic acid and B12 levels are normal. She has not seen blood her stools. Her hemoglobin which was 9.42 days ago is now 10.5. Prior to that it was 7.0 and she had received 1 unit of blood. (3) CHF (congestive heart failure): Code(s): I50.9 - Heart failure, unspecified Status: Acute Assessment and Plan: On admission she was complaining of being short of breath. She does use oxygen at home she complains of being short of breath progressively over the last couple weeks with some nonproductive cough. Admission BNP was greater than 30,000. She was diagnosed with pulmonary edema and started on diuretics. (4) Renal failure: Code(s): N19 - Unspecified kidney failure Status: Acute Assessment and Plan: Creatinine is 2.7/2.6 Without any significant change for last few days.. BUN is in the 40s. She told me that during a recent hospitalization at [facility] she was told by a kidney specialist that she was almost in need of losing her kidneys are going on dialysis but that he was able to save her (5) History of gastric bypass: Code(s): Z98.84 - Bariatric surgery status Status: Acute Assessment and Plan: she had this done 25 years ago. This could explain anemia on the basis of malabsorption of iron or other nutrients but those levels are all normal. GI Consult Note Consult date/time: 05/02/23 12:19 HPI: Alejandra Gray is a 77 year old female admitted 2 days ago with shortness of breath. She was not having any pain or fever chills. She was found to be anemic with a hemoglobin 7 apparently was given 1 in of blood with results her hemoglobin has come up to 10.5 to she states that she was recently in the hospital in [facility] and at [facility] they were concerned about her having some blood her stools. She states that she had a colonoscopy and was told that everything was clear during that admission they also were concerned about her kidneys and some values dropping. She states the kidney specialist told her that she was close to needing dialysis. She has had multiple prior abdominal surgeries including several hernia repairs with mesh. She had a gastric bypass in 1998 has had hysterectomy. Review of Systems Review of Systems: All systems reviewed & are unremarkable except as noted in HPI and below PMFSH Past Medical History Medical History Anxiety B12 deficiency Chronic bronchitis Chronic pancreatitis Dementia Depression Diastolic dysfunction Noted on echocardiogram 2015, EF 65%, moderate LVH Diet-controlled type 2 diabetes mellitus GERD (gastroesophageal reflux disease) Hyperlipidemia Hypothyroidism Intracranial bleed Noted on MRI May 2016: 8 mm lesion in the right temporal lobe consistent with acute intraparenchymal hematoma Kidney stones Multiple sclerosis Optic neuritis due to multiple sclerosis Pulmonary hypertension Mild, noted on echocardiogram 2016 RVSP of 40 Respiratory failure requiring intubation (01/2014) Rheumatoid arthritis Small bowel obstruction Spinal stenosis With history of pain pump insertion and subsequent removal. Surgical History Surgical History History of cholecy
--- NOTE | 2023-05-02 13:09 | PM.IMPN ---
Progress Note: A&P Assessment and Plan (1) CHF (congestive heart failure): Code(s): I50.9 - Heart failure, unspecified Status: Acute Assessment and Plan: Patient with a history of diastolic CHF. Presents shortness of breath and increasing pedal edema. Also with orthopnea for the past few days. Chest x-ray shows pulmonary edema with probably right pleural effusion. Images reviewed personally. BNP greater than 30 K. Acute on chronic diastolic CHF possibly related to anemia. Cannot exclude right lower lobe pneumonia although felt less likely. She has a cough that is nonproductive. White count is normal. She was started on Rocephin and azithromycin. IV Lasix given but blood pressure dropped to 82/57. She did receive a unit of blood. Blood pressure is better. Renal function stable. Change to oral lasix (2) Anemia, macrocytic: Code(s): D53.9 - Nutritional anemia, unspecified Status: Acute Assessment and Plan: Hemoglobin was 7.9 in December. Hemoglobin 7.0 on admission here. Consider CHF from high-output failure although probably less likely since this anemia seems to be more chronic. B12 and folate levels normal. Iron studies noted. Stool guiac positive. LDH normal. She received 1 unit packed red blood cells in the ED. Hgb 10.5 Monitor H&H serially. Transfuse as needed. GI consulted and appreciate their input. Continue PPI. 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 UA is consistent with complicated UTI. UCx collected. Rocephin started. Kelley catheter was changed out. UCx pseudomonas and klebsiella. Sensitivities pending. Change abx to cefepime (4) Decubitus ulcer, heel: Code(s): L89.609 - Pressure ulcer of unspecified heel, unspecified stage Status: Acute Assessment and Plan: Patient with chronic heel ulcers that are improving per patient. [facility] Wound care consult (5) Renal failure: Code(s): N19 - Unspecified kidney failure Status: Acute Assessment and Plan: Cr elevated on admission at 2.7. Last value of 0.9 was noted 2 years ago Patient states she has known renal failure but baseline is unknown. TCK normal. Cr stable and she is tolerating diuresis. Consider nephrotic syndrome but proteinuria could be from the UTI Continue Lasix but change to oral. Plan DVT prophylax -SCDs Code status -DNR Subjective Date/time seen: 05/02/23 13:09 Interval history: 77yo female with MS, CKD, RA, diabetes, pulmonary hypertension and diastolic CHF here for shortness of breath. nervous today. Slept poorly for no clear reason. No CP or SOB. Slight cough. no n/v. Has chronic diarrhea 3-4 BMs/day Exam Narrative: AF 96.9 121/66 106 18 94% ra Gen -NARD Chest -clear anteriorly CV - RRR S1/S2. Tele showing PVCs Abd - Soft, NT/ND, Positive BS - Kelley secured draining clear yellow urine Ext - no pedal edema Psych - Nml mood and affect Skin - Pale and dry. Left heel ulcers clean and dry Objective Data Vital Signs Vital Signs: Vital Signs - 24 hr 05/01/23 13:42 05/01/23 13:35 05/01/23 13:50 Temperature 98.7 F Pulse Rate 103 H Respiratory Rate 18 Blood Pressure 132/78 Pulse Oximetry 100 Oxygen Delivery Room Air Room Air 05/01/23 16:00 05/01/23 20:00 05/01/23 22:30 Temperature 97.3 F L Pulse Rate 102 H 97 Respiratory Rate 20 Blood Pressure 136/77 Pulse Oximetry 91 Oxygen Delivery Room Air 05/01/23 20:00 05/02/23 00:00 05/02/23 04:00 Temperature Pulse Rate 105 H 100 103 H Respiratory Rate Blood Pressure Pulse Oximetry Oxygen Delivery 05/02/23 05:35 05/02/23 08:00 05/02/23 08:00 Temperature 96.9 F L Pulse Rate 97 102 H 97 Respiratory Rate 18 Blood Pressure 121/66 P
[2023-05-02] MEDS: CEFEPIME 1 GM/NS 50 ML 1 GM/50 ML BAG IVPB (16:28)
[2023-05-02] MEDS: MELATONIN 3 MG TABLET PO (20:35)
[2023-05-02] MEDS: MELATONIN 5 MG TABLET PO (20:35)
[2023-05-03] VITALS (13 sets, daily range): BP systolic 104–125; BP diastolic 64–79; PULSE 85–100; RESP 16–18; TEMP 36.3–36.4; O2SAT 96–99
[2023-05-03] MEDS: LEVOTHYROXINE SODIUM 75 MCG TABLET PO (05:29)
[2023-05-03 06:52] LABS: Basophils Absolute Auto 0.1 K/mm3 (0.0-0.1); Eosinophils Absolute Auto 0.2 K/mm3 (0-0.3); Eosinophils Percent Auto 3.2 % (0-4.4); Hematocrit 32.3 % (37.0-47.0); Hemoglobin 9.8 g/dL (12.0-15.0); Immature Granulocyte Absolute 0.02 K/mm3 (0.00-0.031); Immature Granulocyte Percent A 0.4 % (0-0.5); Lymphocytes Absolute Auto 1.08 K/mm3 (0.9-3.2); Lymphocytes Percent Auto 21.7 % (18.3-44.2); Mean Corpuscular HGB Conc 30.3 g/dl (32-36); Mean Corpuscular Hemoglobin 31.5 pg (26-34); Mean Corpuscular Volume 103.9 fl (80-100); Mean Platelet Volume 10.2 fl (7.4-10.4); Monocytes Absolute Auto 0.3 K/mm3 (0.1-0.6); Monocytes Percent Auto 5.2 % (2.6-8.5); Neutrophils Absolute Auto 3.4 K/mm3 (1.3-6.7); Neutrophils Percent Auto 68.5 % (45.5-73.1); Platelet Count Result 139 k/mm3 (150-375); Red Blood Count 3.11 M/mm3 (4.2-5.4); Red Cell Distribution Width 15.6 % (11.5-14.5)
[2023-05-03 07:18] LABS: Alanine Aminotransferase 11 U/L (6-35); Albumin Level 2.6 g/dL (3.5-5.1); Alkaline Phosphatase 136 U/L (38-126); Anion Gap 6 mmol/L (8-16); Aspartate Amino Transferase 16 U/L (14-36); Bilirubin,Total 0.3 mg/dL (0.2-1.3); Blood Urea Nitrogen 40 mg/dL (7-17); Calcium 7.8 mg/dL (8.4-10.2); Carbon Dioxide 20 mmol/L (22-30); Chloride 114 mmol/L (98-107); Estimated CRCL calculation 15 ml/min; Estimated Glomerular Filt Rate 19; Glucose 99 mg/dL (65-110); Phosphorus 4.5 mg/dL (2.5-4.5); Potassium 4.2 mmol/L (3.4-5.0); Sodium 140 mmol/L (137-145)
[2023-05-03] MEDS: cycloSPORINE 0.4 ML OPHTH SOLUTION 1 DROP EACH EYE ×2 (09:21→20:49)
[2023-05-03] MEDS: FLUTICASONE PROPIONATE 0.05% NA SPR 16 GM BTL (*BKC) 1 SPRAY NASAL (09:21)
[2023-05-03] MEDS: MIRTAZAPINE 15 MG TABLET PO (09:23)
[2023-05-03] MEDS: AZITHROMYCIN 250 MG TABLET 500 MG PO (09:23)
[2023-05-03] MEDS: ACIDOPHILUS/BULGARICUS CHEWABLE TABLET 1 TABLET PO ×2 (09:24→17:28)
[2023-05-03] MEDS: PANTOPRAZOLE SODIUM IV 40 MG VIAL IV PUSH ×2 (09:24→20:49)
[2023-05-03] MEDS: FUROSEMIDE 40 MG TABLET PO (09:24)
[2023-05-03] MEDS: CHOLECALCIFEROL 1,000 UNITS TABLET 1000 UNITS PO ×2 (09:24→17:28)
[2023-05-03] MEDS: ESCITALOPRAM OXALATE 10 MG TABLET PO (09:24)
[2023-05-03] MEDS: CEFEPIME 1 GM/NS 50 ML 1 GM/50 ML BAG IVPB (13:45)
--- NOTE | 2023-05-03 15:07 | PM.IMPN ---
Progress Note: A&P Assessment and Plan (1) CHF (congestive heart failure): Code(s): I50.9 - Heart failure, unspecified Status: Acute Assessment and Plan: Patient with a history of diastolic CHF. Presents shortness of breath and increasing pedal edema. Also with orthopnea for the past few days. Chest x-ray shows pulmonary edema with probably right pleural effusion. Images reviewed personally. BNP greater than 30 K. Acute on chronic diastolic and systolic CHF Cannot exclude right lower lobe pneumonia although felt less likely. She has a cough that is nonproductive. White count is normal. She was started on Rocephin and azithromycin. IV Lasix given but blood pressure dropped to 82/57. She did receive a unit of blood. Blood pressure is better. Renal function stable. Changed to oral lasix Echo showing EF 30-35%, moderate pulmonary HTN, mild valvular disease and diastolic dysfunction. Moderate pericardial effusion without tamponade but evidence of invagination RA wall. (Echo in 2021 showing EF>70%) Cardiology consult Add Coreg and consider Entresto. (2) Anemia, macrocytic: Code(s): D53.9 - Nutritional anemia, unspecified Status: Acute Assessment and Plan: Hemoglobin was 7.9 in December. Hemoglobin 7.0 on admission here. Consider CHF from high-output failure although probably less likely since this anemia seems to be more chronic. B12 and folate levels normal. Iron studies noted. Stool guaiac positive. LDH normal. She received 1 unit packed red blood cells in the ED. Hgb 9-10 now Monitor H&H serially. Transfuse as needed. GI consulted and appreciate their input. Continue PPI. 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 UA is consistent with complicated UTI. UCx collected. Rocephin started. Kelley catheter was changed out. UCx pseudomonas and klebsiella. Sensitive to Cefepime and levaquin On cefepime; okay to change to levaquin (4) Decubitus ulcer, heel: Code(s): L89.609 - Pressure ulcer of unspecified heel, unspecified stage Status: Acute Assessment and Plan: Patient with chronic heel ulcers that are improving per patient. [facility] Wound care consult (5) Renal failure: Code(s): N19 - Unspecified kidney failure Status: Acute Assessment and Plan: Cr elevated on admission at 2.7. Last value of 0.9 was noted 2 years ago Patient states she has known renal failure but baseline is unknown. TCK normal. Cr stable and she is tolerating diuresis. Consider nephrotic syndrome but proteinuria could be from the UTI Continue oral Lasix Plan DVT prophylax -SCDs Code status -DNR Subjective Date/time seen: 05/03/23 15:07 Interval history: 77yo female with MS, CKD, RA, diabetes, pulmonary hypertension and diastolic CHF here for shortness of breath. Slept well last night. No CP or SOB. Not on O2 at home. +diarrhea which is chronic. Exam Narrative: AF 97.5 125/68 94 16 99% ra Gen -NARD Chest - decreased BS in the bases. nml RR CV - RRR S1/S2. Tele showing PVCs and bigeminy Abd - Soft, NT/ND, Positive BS - Kelley secured draining clear yellow urine Ext - no pedal edema Psych - Nml mood and affect Skin - Pale and dry. Left heel dressing clean and dry Objective Data Vital Signs Vital Signs: Vital Signs - 24 hr 05/02/23 16:00 05/02/23 20:00 05/02/23 21:29 Temperature 97.3 F L Pulse Rate 109 H 95 Respiratory Rate 18 Blood Pressure 131/77 Pulse Oximetry 96 Oxygen Delivery Room Air 05/02/23 20:00 05/03/23 00:00 05/03/23 04:00 Temperature Pulse Rate 98 96 100 Respiratory Rate Blood Pressure Pulse Oximetry Oxygen Delivery 05/03/23 06:00 05/03/23 08:42 05/03/23 09:51 Temperature 97.5 F L Pulse
--- NOTE | 2023-05-03 15:28 | PC.NURSE ---
On 05/03/23, the student, Liv Fraire, provided care and completed [facility] documentation on this patient. I have reviewed the student's documentation and agree with the findings.
[2023-05-03] MEDS: carvediloL 6.25 MG TABLET PO (20:49)
[2023-05-03] MEDS: MELATONIN 5 MG TABLET PO (20:55)
[2023-05-03] MEDS: MELATONIN 3 MG TABLET PO (20:56)
[2023-05-04] VITALS (12 sets, daily range): BP systolic 107–113; BP diastolic 49–61; PULSE 78–90; RESP 16–18; TEMP 35.9–36.3; O2SAT 94–96
[2023-05-04] MEDS: LEVOTHYROXINE SODIUM 75 MCG TABLET PO (05:51)
[2023-05-04 05:56] LABS: Basophils Absolute Auto 0.1 K/mm3 (0.0-0.1); Basophils Percent Auto 1.2 % (0.2-1.2); Eosinophils Absolute Auto 0.2 K/mm3 (0-0.3); Eosinophils Percent Auto 3.9 % (0-4.4); Hematocrit 30.9 % (37.0-47.0); Hemoglobin 9.1 g/dL (12.0-15.0); Immature Granulocyte Absolute 0.01 K/mm3 (0.00-0.031); Immature Granulocyte Percent A 0.2 % (0-0.5); Lymphocytes Percent Auto 24.4 % (18.3-44.2); Mean Corpuscular HGB Conc 29.4 g/dl (32-36); Mean Corpuscular Hemoglobin 30.7 pg (26-34); Mean Corpuscular Volume 104.4 fl (80-100); Mean Platelet Volume 9.9 fl (7.4-10.4); Monocytes Absolute Auto 0.2 K/mm3 (0.1-0.6); Monocytes Percent Auto 5.9 % (2.6-8.5); Neutrophils Absolute Auto 2.6 K/mm3 (1.3-6.7); Neutrophils Percent Auto 64.4 % (45.5-73.1); Platelet Count Result 120 k/mm3 (150-375); Red Blood Count 2.96 M/mm3 (4.2-5.4); Red Cell Distribution Width 15.3 % (11.5-14.5); White Blood Count 4.1 K/mm3 (4.5-10.0)
[2023-05-04 06:15] LABS: Albumin Level 2.4 g/dL (3.5-5.1); Anion Gap 5 mmol/L (8-16); Blood Urea Nitrogen 40 mg/dL (7-17); Calcium 7.8 mg/dL (8.4-10.2); Carbon Dioxide 24 mmol/L (22-30); Chloride 114 mmol/L (98-107); Estimated CRCL calculation 13 ml/min; Estimated Glomerular Filt Rate 16; Glucose 91 mg/dL (65-110); Magnesium 1.9 mg/dL (1.6-2.3); Phosphorus 4.5 mg/dL (2.5-4.5); Potassium 4.1 mmol/L (3.4-5.0); Sodium 143 mmol/L (137-145)
[2023-05-04 06:53] LABS: Hypochromasia 1+ (NORMAL); Schistocytes None Seen (NORMAL)
[2023-05-04 06:54] LABS: Anisocytosis 1+ (NORMAL)
[2023-05-04] MEDS: ESCITALOPRAM OXALATE 10 MG TABLET PO (08:03)
[2023-05-04] MEDS: FUROSEMIDE 40 MG TABLET PO (08:03)
[2023-05-04] MEDS: ACIDOPHILUS/BULGARICUS CHEWABLE TABLET 1 TABLET PO ×2 (08:03→17:08)
[2023-05-04] MEDS: AZITHROMYCIN 250 MG TABLET 500 MG PO (08:03)
[2023-05-04] MEDS: carvediloL 6.25 MG TABLET PO ×2 (08:03→20:46)
[2023-05-04] MEDS: MIRTAZAPINE 15 MG TABLET PO (08:03)
[2023-05-04] MEDS: CHOLECALCIFEROL 1,000 UNITS TABLET 1000 UNITS PO ×2 (08:03→17:08)
[2023-05-04] MEDS: cycloSPORINE 0.4 ML OPHTH SOLUTION 1 DROP EACH EYE ×2 (08:04→20:47)
[2023-05-04] MEDS: FLUTICASONE PROPIONATE 0.05% NA SPR 16 GM BTL (*BKC) 1 SPRAY NASAL (08:04)
[2023-05-04] MEDS: PANTOPRAZOLE SODIUM IV 40 MG VIAL IV PUSH ×2 (08:07→20:47)
--- NOTE | 2023-05-04 11:02 | PM.CNCAR ---
Assessment and Plan Assessment and plan (1) Acute exacerbation of CHF (congestive heart failure): Qualifiers: Heart failure type: combined systolic and diastolic Qualified Code(s): I50.43 - Acute on chronic combined systolic (congestive) and diastolic (congestive) heart failure Code(s): I50.9 - Heart failure, unspecified Status: Acute Assessment and Plan: Patient presents with progressive acute decompensated systolic heart failure with new moderate LV dysfunction EF 30-35%. Patient is improved and nearing euvolemia after receiving IV Lasix which was incidentally held secondary to hypertensive blood pressure response earlier this hospitalization. Blood pressure is now stable after receiving 1 unit packed red blood cells. She is tolerating carvedilol 6.25 mg twice daily and Lasix 40 mg p.o. daily thus far. Discussed extensively the patient with regards to LV dysfunction and management strategy. Ideally, recommend initiation of Entresto, spironolactone, Jardiance. However, given patient's underlying significant renal failure she has not a reasonable candidate for initiation of spironolactone, Entresto and or Jardiance at this time. We discussed limitations and risk this poses yet given the degree of renal failure recent hypotensive blood pressure response risks may outweigh benefit at this time. We will attempt to initiate guideline directed medical therapy as appropriate. (2) Cardiomyopathy: Qualifiers: Cardiomyopathy type: other Qualified Code(s): I42.8 - Other cardiomyopathies Code(s): I42.9 - Cardiomyopathy, unspecified Status: Acute Assessment and Plan: As above, discussed at great length etiology of her cardiomyopathy remains unclear. Given her age and risk factors cannot exclude underlying CAD although possibly nonischemic etiology, given the fact that atherosclerotic calcification of the aorta and coronary arteries were noted on CT chest noncontrast 08/2022 CAD remains a likely consideration. Noninvasive ischemic evaluation would not likely significantly change our management and will not be pursued. Furthermore, invasive angiography for definitive evaluation and delineation of her coronary anatomy would be most appropriate yet given her anemia requiring transfusion, frailty, and advanced underlying renal failure she would be at high risk for complications including but not limited to bleeding, ventricular arrhythmias, respiratory failure and most concerning late worsening renal failure to the point where hemodialysis may be required. Furthermore, patient is a DNR status which we discussed at length as well. Patient does not wish to engage invasive procedures and wishes to remain a DNR. Given limitations with regards to invasive workup and limitations with medical therapy options are severely limited placing patient high risk for complications as discussed. Patient verbalized understanding and accepts this risk. Will continue to stabilize her to maintain reasonable quality of life with conservative management strategy moving forward. Furthermore, patient reports significant swings in her weight which are highly concerning. Consider addition of aspirin 81 mg daily. Check lipid panel. Add statin therapy atorvastatin 20 mg at bedtime as tolerated. Continue carvedilol 6.25 mg twice daily. (3) Chronic kidney disease: Qualifiers: Chronic kidney disease stage: stage 4 (severe) Qualified Code(s): N18.4 - Chronic kidney disease, stage 4 (severe) Code(s): N18.9 - Chronic kidney disease, unspecified Status: Acute Assessment and Plan: Stage IV underlying chronic kidney disease. Patient expressed she has no desire to consider hemodialysis even if necessary in the future. Degree of renal failure per his note of 1st of contrast exposure to high risk for worsening renal failure possibly for hemodialysis. Minimize and avoid nephrotoxic agents as tolerated. (4) An
[2023-05-04] MEDS: levoFLOXacin 750 MG TABLET PO (12:17)
--- NOTE | 2023-05-04 14:25 | PM.CNNEP ---
Assessment and Plan Assessment and plan (1) Chronic kidney disease, stage IV (severe): Code(s): N18.4 - Chronic kidney disease, stage 4 (severe) Status: Chronic Assessment and Plan: known issue/problem had been following with Dr. Wright at [facility] baseline creatinine has been running ~ 2.5 - 3.0mg/dl in the last year or so etiology of CKD multifactorial: recurrent/previous bouts of MARK/ARF in the past urinary retention/obstructive uropathy prerenal azotemia kidney stones urinary tract infections follow repeat labs and UOP (2) Acute exacerbation of CHF (congestive heart failure): Qualifiers: Heart failure type: combined systolic and diastolic Qualified Code(s): I50.43 - Acute on chronic combined systolic (congestive) and diastolic (congestive) heart failure Code(s): I50.9 - Heart failure, unspecified Status: Acute Assessment and Plan: Echo withEF of 30 - 35% s/p IV diuretics - transitioned to oral lasix Cardiology recommendations noted attempt GMDT as tolerated (3) Anemia: Code(s): D64.9 - Anemia, unspecified Status: Chronic Assessment and Plan: suspect partly related to underlying CKD s/p 1 unit PRBC transfusion anemia studies noted GI recommendations noted consider empiric ELISHA while hospitalized (4) Acute UTI: Code(s): N39.0 - Urinary tract infection, site not specified Status: Acute Assessment and Plan: complicated by presence of indwelling mccormick catheter mccormick needed due to known urinary retention related to MS mccormick catheter exchanged out on admission urine culture with Pseudomonas and Klebsiella on antibiotics (5) Decubitus ulcer, heel: Code(s): L89.609 - Pressure ulcer of unspecified heel, unspecified stage Status: Chronic Assessment and Plan: chronic issue improving with ongoing therapy at residential wound care following I will continue follow the patient with you while she remains hospitalized and make further recommendations as deemed necessary. Thank you for allowing me to participate in the care of this patient. History of Present Illness Reason for Consult Consult date: 05/04/23 Reason for consult: chronic renal failure Chief Complaint Chief complaint: new chf History of Present Illness Narrative: the patient is a 77-year-old female with multiple medical issues and problems as outlined below who presented to [facility] Emergency room with complaints of shortness of breath. The patient reports that over the last several weeks she has been getting more and more short of breath. Initially the shortness of breath was associated with a cough but then progressively worsened and with noted associated symptoms of increasing lower extremity edema and weakness. She denies any fevers chills chest pain abdominal pain or urinary symptoms but since the pressure orders of breath was progressively getting worse, she decided come to the emergency room for further assessment Workup and evaluation emergency room demonstrated a CBC which was significant for significant anemia with a hemoglobin of 7.0, a BNP of greater than 30,000, and a chest x-ray that showed significant pulmonary edema. It was felt that her shortness of breath was exacerbation of CHF given these findings. Her urinalysis was also highly suggestive of urinary tract infection however it should be noted that she has a chronic indwelling Mccormick catheter due to urinary retention secondary to her known history of multiple sclerosis. Her admission labs also showed evidence of renal insufficiency as well which apparently is a known issue per the patient. She was typed and crossed for a blood transfusion and initiated on IV diuresis with subsequent admission to the hospital for further evaluation and therapy. Since her admission, she has responded to IV diuretics with improveme
--- NOTE | 2023-05-04 14:25 | P.CONNP_ITS ---
Assessment and Plan Assessment and plan (1) Chronic kidney disease, stage IV (severe): Code(s): N18.4 - Chronic kidney disease, stage 4 (severe) Status: Chronic Assessment and Plan: * known issue/problem * had been following with Dr. Wright at [facility] * baseline creatinine has been running ~ 2.5 - 3.0mg/dl in the last year or so * etiology of CKD multifactorial: * recurrent/previous bouts of MARK/ARF in the past * urinary retention/obstructive uropathy * prerenal azotemia * kidney stones * urinary tract infections * follow repeat labs and UOP (2) Acute exacerbation of CHF (congestive heart failure): Qualifiers: Heart failure type: combined systolic and diastolic Qualified Code(s): I50.43 - Acute on chronic combined systolic (congestive) and diastolic (ivett estive) heart failure Code(s): I50.9 - Heart failure, unspecified Status: Acute Assessment and Plan: * Echo withEF of 30 - 35% * s/p IV diuretics - transitioned to oral lasix * Cardiology recommendations noted * attempt GMDT as tolerated (3) Anemia: Code(s): D64.9 - Anemia, unspecified Status: Chronic Assessment and Plan: * suspect partly related to underlying CKD * s/p 1 unit PRBC transfusion * anemia studies noted * GI recommendations noted * consider empiric ELISHA while hospitalized (4) Acute UTI: Code(s): N39.0 - Urinary tract infection, site not specified Status: Acute Assessment and Plan: * complicated by presence of indwelling mccormick catheter * mccormick needed due to known urinary retention related to MS * mccormick catheter exchanged out on admission * urine culture with Pseudomonas and Klebsiella * on antibiotics (5) Decubitus ulcer, heel: Code(s): L89.609 - Pressure ulcer of unspecified heel, unspecified stage Status: Chronic Assessment and Plan: * chronic issue * [facility] * wound care following I will continue follow the patient with you while she remains hospitalized and make further recommendations as deemed necessary. Thank you for allowing me to participate in the care of this patient. History of Present Illness Reason for Consult Consult date: 05/04/23 Reason for consult: chronic renal failure Chief Complaint Chief complaint: new chf History of Present Illness Narrative: the patient is a 77-year-old female with multiple medical issues and problems as outlined below who presented to [facility] Emergency room with complaints of shortness of breath. The patient reports that over the last several weeks she has been getting more and more short of breath. Initially the shortness of breath was associated with a cough but then progressively worsened and with noted associated symptoms of increasing lower extremity edema and weakness. She denies any fevers chills chest pain abdominal pain or urinary symptoms but since the pressure orders of breath was progressively getting worse, she decided come to the emergency room for further assessment Workup and evaluation emergency room demonstrated a CBC which was significant fo r significant anemia with a hemoglobin of 7.0, a BNP of greater than 30,000, and a chest x-ray that showed significant pulmonary edema. It was felt that her shortness of breath was exacerbation of CHF given these findings. Her urinalysis was also highly suggestive of urinary tract infection however it should be noted that she has a chronic indwelling Mccormick catheter due to urinary retentio
--- NOTE | 2023-05-04 17:10 | PM.IMPN ---
Progress Note: A&P Assessment and Plan (1) CHF (congestive heart failure): Code(s): I50.9 - Heart failure, unspecified Status: Acute Assessment and Plan: Combined systolic-diastolic. Presents shortness of breath and increasing pedal edema. Also with orthopnea for the past few days. Chest x-ray shows pulmonary edema with probably right pleural effusion. BNP greater than 30 K. Acute on chronic diastolic and systolic CHF Cannot exclude right lower lobe pneumonia although felt less likely. She has a cough that is nonproductive. White count is normal. She was started on Rocephin and azithromycin. IV Lasix given but blood pressure dropped to 82/57. She did receive a unit of blood. Blood pressure is better. Renal function stable. Changed to oral lasix Echo showing EF 30-35%, moderate pulmonary HTN, mild valvular disease and diastolic dysfunction. Moderate pericardial effusion without tamponade but evidence of invagination RA wall. (Echo in 2021 showing EF>70%) Cardiology consulted. Appreciate recommendations Continue Coreg. Consider adding aspirin although she has stool occult positive. (2) Anemia, macrocytic: Code(s): D53.9 - Nutritional anemia, unspecified Status: Acute Assessment and Plan: Hemoglobin was 7.9 in December. Hemoglobin 7.0 on admission here. Consider CHF from high-output failure although probably less likely since this anemia seems to be more chronic. B12 and folate levels normal. Iron studies noted. Stool guaiac positive. LDH normal. She received 1 unit packed red blood cells in the ED. Hgb 9-10 now Monitor H&H serially. Transfuse as needed. GI consulted and appreciate their input. Continue PPI. 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 UA is consistent with complicated UTI due to indwelling Kelley catheter. UCx collected. Rocephin started. Kelley catheter was changed out. UCx pseudomonas and klebsiella. Sensitive to Cefepime and levaquin On 05/04 cefepime changed to Levaquin. Continue for total 10 day antibiotic course. (4) Decubitus ulcer, heel: Code(s): L89.609 - Pressure ulcer of unspecified heel, unspecified stage Status: Acute Assessment and Plan: Patient with chronic heel ulcers that are improving per patient. This is managed at the alf. Wound care consult (5) Renal failure: Code(s): N19 - Unspecified kidney failure Status: Acute Assessment and Plan: Cr elevated on admission at 2.7. Last value of 0.9 was noted 2 years ago Patient states she has known renal failure but baseline is unknown. CK normal. Cr stable and she is tolerating diuresis. Consider nephrotic syndrome but proteinuria could be from the UTI Continue oral Lasix -nephrology consulted on 05/04 Plan 77-year-old female with past medical history remote morbid obesity status post gastric bypass surgery in the 1970s, chronic anemia, unspecified CKD, rheumatoid arthritis, multiple sclerosis, hyperlipidemia, hypothyroidism, depression and anxiety, GERD, combined systolic-diastolic heart failure presents with progressive fatigue and shortness of breath. BNP greater than 30,000 on admission. Admitted on 04/30/2023 Abnormal weight loss. Defer to outpatient workup although patient is not interested at this time. FEN: Saline lock IV GI prophylaxis: Ppi DVT prophylaxis: SCDs only Lines: Peripheral IV Code Status: DNR Dispo: Stable. Long-term resident of [place] Subjective Date/time seen: 05/04/23 17:10 Interval history: No acute overnight events. Patient denies any complaints including chest pain or shortness of breath. She reiterates she is not sure the status of her kidneys or how long they have been impaired. Review of Systems Review of Systems: All systems reviewed
[2023-05-04] MEDS: ACETAMINOPHEN 325 MG TABLET 650 MG PO (17:20)
[2023-05-04 18:29] LABS: Creatinine Urine 37.1 mg/dL; Total Protein Urine Random 50 mg/dL; Ur Ttl Prot Creatinine Ratio 1.35 mg/mg (0-0.20); Urea Random Urine 276 MG/DL
[2023-05-04 18:41] LABS: Sodium Urine Random 107 meq/L
[2023-05-04 19:15] LABS: Eosinophil Urine None Seen % (None Seen); Urine Eos QC 2nd Tech Confirmed
[2023-05-04] MEDS: ATORVASTATIN 20 MG TABLET PO (20:46)
[2023-05-05] VITALS (10 sets, daily range): BP systolic 100–117; BP diastolic 52–59; PULSE 82–97; RESP 18; TEMP 36–36.4; O2SAT 97–99
[2023-05-05] MEDS: ACETAMINOPHEN 325 MG TABLET 650 MG PO ×2 (00:33→20:55)
[2023-05-05 06:07] LABS: Hematocrit 28.2 % (37.0-47.0); Hemoglobin 8.5 g/dL (12.0-15.0); Mean Corpuscular HGB Conc 30.1 g/dl (32-36); Mean Corpuscular Hemoglobin 31.4 pg (26-34); Mean Corpuscular Volume 104.1 fl (80-100); Mean Platelet Volume 10.1 fl (7.4-10.4); Platelet Count Result 106 k/mm3 (150-375); Red Blood Count 2.71 M/mm3 (4.2-5.4); Red Cell Distribution Width 15.3 % (11.5-14.5); White Blood Count 4.1 K/mm3 (4.5-10.0)
[2023-05-05 06:16] LABS: Anion Gap 5 mmol/L (8-16); Blood Urea Nitrogen 40 mg/dL (7-17); Calcium 7.8 mg/dL (8.4-10.2); Carbon Dioxide 23 mmol/L (22-30); Chloride 112 mmol/L (98-107); Cholesterol 106 mg/dL (0-200); Estimated CRCL calculation 13 ml/min; Estimated Glomerular Filt Rate 17; Glucose 93 mg/dL (65-110); HDL Direct 37 mg/dL; Magnesium 1.9 mg/dL (1.6-2.3); Potassium 4.2 mmol/L (3.4-5.0); Sodium 140 mmol/L (137-145); Triglycerides 73 mg/dL (<150)
[2023-05-05] MEDS: LEVOTHYROXINE SODIUM 75 MCG TABLET PO (06:21)
[2023-05-05 06:26] LABS: LDL Cholesterol Direct 57 mg/dL
[2023-05-05] MEDS: FUROSEMIDE 40 MG TABLET PO (08:48)
[2023-05-05] MEDS: carvediloL 6.25 MG TABLET PO ×2 (08:48→20:56)
[2023-05-05] MEDS: MIRTAZAPINE 15 MG TABLET PO (08:48)
[2023-05-05] MEDS: ESCITALOPRAM OXALATE 10 MG TABLET PO (08:48)
[2023-05-05] MEDS: ACIDOPHILUS/BULGARICUS CHEWABLE TABLET 1 TABLET PO ×2 (08:48→17:04)
[2023-05-05] MEDS: PANTOPRAZOLE SODIUM IV 40 MG VIAL IV PUSH ×2 (08:49→20:55)
[2023-05-05] MEDS: cycloSPORINE 0.4 ML OPHTH SOLUTION 1 DROP EACH EYE ×2 (08:49→20:56)
[2023-05-05] MEDS: CHOLECALCIFEROL 1,000 UNITS TABLET 1000 UNITS PO ×2 (08:50→17:04)
[2023-05-05] MEDS: FLUTICASONE PROPIONATE 0.05% NA SPR 16 GM BTL (*BKC) 1 SPRAY NASAL (08:50)
[2023-05-05] MEDS: BISACODYL 5 MG TABLET EC 10 MG PO (08:54)
--- NOTE | 2023-05-05 09:32 | PM.PNCARD ---
Progress Note: A&P Assessment and Plan (1) Acute exacerbation of CHF (congestive heart failure): Qualifiers: Heart failure type: combined systolic and diastolic Qualified Code(s): I50.43 - Acute on chronic combined systolic (congestive) and diastolic (congestive) heart failure Code(s): I50.9 - Heart failure, unspecified Status: Acute Assessment and Plan: Patient presents with progressive acute decompensated systolic heart failure with new moderate LV dysfunction EF 30-35%. Patient is improved and nearing euvolemia. -continue Lasix 40 mg daily. Renal function stable overall but with advanced renal failure, stage IV. -ideally, would recommend addition of Entresto, Jardiance, spironolactone as BP and renal function permit. However, given hypertensive response with IV Lasix, advanced underlying renal insufficiency initiation of these medications not likely to be tolerated well and/or result in greater complication. She is reasonably stable at this time will continue current regimen and optimize medical therapy as we are able. -given the fact that she has any active UTI initiation Jardiance but not ideal. -low-dose Spironolactone 12.5 mg daily may be a consideration and may slow renal progression and assist with management of her heart failure tolerated if okay with Nephrology. -overall, prognosis guarded. (2) Cardiomyopathy: Qualifiers: Cardiomyopathy type: other Qualified Code(s): I42.8 - Other cardiomyopathies Code(s): I42.9 - Cardiomyopathy, unspecified Status: Acute Assessment and Plan: As above, discussed at great length etiology of her cardiomyopathy remains unclear. Given her age and risk factors cannot exclude underlying CAD although possibly nonischemic etiology, given the fact that atherosclerotic calcification of the aorta and coronary arteries were noted on CT chest noncontrast 08/2022 CAD remains a likely consideration. Noninvasive ischemic evaluation would not likely significantly change our management and will not be pursued. Furthermore, invasive angiography for definitive evaluation and delineation of her coronary anatomy would be most appropriate yet given her anemia requiring transfusion, frailty, and advanced underlying renal failure she would be at high risk for complications including but not limited to bleeding, ventricular arrhythmias, respiratory failure and most concerning late worsening renal failure to the point where hemodialysis may be required. Furthermore, patient is a DNR status which we discussed at length as well. Patient does not wish to engage invasive procedures and wishes to remain a DNR. Given limitations with regards to invasive workup and limitations with medical therapy options are severely limited placing patient high risk for complications as discussed. Patient verbalized understanding and accepts this risk. Will continue to stabilize her to maintain reasonable quality of life with conservative management strategy moving forward. Furthermore, patient reports significant swings in her weight which are highly concerning. -again, consider addition of Aspirin 81 mg daily yet given Hemoccult positive stool, anemia thrombocytopenia will hold off at this time. -lipids well controlled LDL 57, total cholesterol 106 without statin therapy. Will reduce atorvastatin to 10 mg every other day. Statin therapy given coronary calcification on CT 08/2022. -attempted to contact ROBBIE Finney as patient requested at number listed with no answer but message left to contact her nurse to communicate with us if she had any other further questions. (3) Chronic kidney disease: Qualifiers: Chronic kidney disease stage: stage 4 (severe) Qualified Code(s): N18.4 - Chronic kidney disease, stage 4 (severe) Code(s): N18.9 - Chronic kidney disease, unspecified Status: Acute Assessment and Plan: Stage IV underlying chronic kidney disease. Amando
--- NOTE | 2023-05-05 13:22 | P.PNNP_ITS ---
Progress Note: A&P Assessment and Plan (1) Chronic kidney disease, stage IV (severe): Code(s): N18.4 - Chronic kidney disease, stage 4 (severe) Status: Chronic Assessment and Plan: * known issue/problem * had been following with Dr. Wright at [facility] * baseline creatinine has been running ~ 2.5 - 3.0mg/dl in the last year or so * etiology of CKD multifactorial: * recurrent/previous bouts of MARK/ARF in the past * urinary retention/obstructive uropathy * prerenal azotemia * kidney stones * urinary tract infections * follow repeat labs and UOP (2) Acute exacerbation of CHF (congestive heart failure): Qualifiers: Heart failure type: combined systolic and diastolic Qualified Code(s): I50.43 - Acute on chronic combined systolic (congestive) and diastolic (conge stive) heart failure Code(s): I50.9 - Heart failure, unspecified Status: Acute Assessment and Plan: * Echo withEF of 30 - 35% * s/p IV diuretics - transitioned to oral lasix * Cardiology recommendations noted * attempt GMDT as tolerated (3) Anemia: Code(s): D64.9 - Anemia, unspecified Status: Chronic Assessment and Plan: * suspect partly related to underlying CKD * s/p 1 unit PRBC transfusion * anemia studies noted * GI recommendations noted * consider empiric ELISHA while hospitalized (4) Acute UTI: Code(s): N39.0 - Urinary tract infection, site not specified Status: Acute Assessment and Plan: * complicated by presence of indwelling mccormick catheter * mccormick needed due to known urinary retention related to MS * mccormick catheter exchanged out on admission * urine culture with Pseudomonas and Klebsiella * on antibiotics (5) Decubitus ulcer, heel: Code(s): L89.609 - Pressure ulcer of unspecified heel, unspecified stage Status: Chronic Assessment and Plan: * chronic issue * improving with ongoing therapy at intermediate * wound care following Will continue to follow. Subjective Date/time seen: 05/05/23 13:22 Interval history: Follow-up for chronic kidney disease. No apparent distress noted at the time of my visit; her only real complaint is that of difficulty sleeping last night without a clear reason; breathng/respiratory status remains relatively stable along with renal function. Exam Narrative: General: elderly but WD/WN female in NAD Heart: normal S1 and S2; no rub Lungs: clear anteriorly; decreased at bases Abdomen: soft, nontender, nondistended, positive bowel sounds Extremities: no cyanosis or clubbing; trace edema Skin: warm and dry Objective Data Vital Signs Vital Signs: Vital Signs Temp Pulse Resp BP Pulse Ox O2 Del Method 05/05/23 13:00 97.5 F L 91 18 103/52 L 99 05/05/23 12:00 83 05/05/23 08:00 84 05/05/23 08:00 Room Air 05/05/23 05:55 96.8 F L 82 18 100/58 L 98 05/05/23 04:02 86 05/05/23 00:02 84 05/04/23 20:50 97.3 F L 90 16 108/49 L 95 05/04/23 20:02 88 05/04/23 20:35 88 18 96 Room Air 05/04/23 20:46 88 05/04/23 16:01 90 Intake/Output Intake/Output: Intake & Output 05/02/23 05/03/23 05/04/23 05/05/23
--- NOTE | 2023-05-05 13:22 | PM.PNNEP ---
Progress Note: A&P Assessment and Plan (1) Chronic kidney disease, stage IV (severe): Code(s): N18.4 - Chronic kidney disease, stage 4 (severe) Status: Chronic Assessment and Plan: known issue/problem had been following with Dr. Wright at [facility] baseline creatinine has been running ~ 2.5 - 3.0mg/dl in the last year or so etiology of CKD multifactorial: recurrent/previous bouts of MARK/ARF in the past urinary retention/obstructive uropathy prerenal azotemia kidney stones urinary tract infections follow repeat labs and UOP (2) Acute exacerbation of CHF (congestive heart failure): Qualifiers: Heart failure type: combined systolic and diastolic Qualified Code(s): I50.43 - Acute on chronic combined systolic (congestive) and diastolic (congestive) heart failure Code(s): I50.9 - Heart failure, unspecified Status: Acute Assessment and Plan: Echo withEF of 30 - 35% s/p IV diuretics - transitioned to oral lasix Cardiology recommendations noted attempt GMDT as tolerated (3) Anemia: Code(s): D64.9 - Anemia, unspecified Status: Chronic Assessment and Plan: suspect partly related to underlying CKD s/p 1 unit PRBC transfusion anemia studies noted GI recommendations noted consider empiric ELISHA while hospitalized (4) Acute UTI: Code(s): N39.0 - Urinary tract infection, site not specified Status: Acute Assessment and Plan: complicated by presence of indwelling mccormick catheter mccormick needed due to known urinary retention related to MS mccormick catheter exchanged out on admission urine culture with Pseudomonas and Klebsiella on antibiotics (5) Decubitus ulcer, heel: Code(s): L89.609 - Pressure ulcer of unspecified heel, unspecified stage Status: Chronic Assessment and Plan: chronic issue improving with ongoing therapy at [facility] following Will continue to follow. Subjective Date/time seen: 05/05/23 13:22 Interval history: Follow-up for chronic kidney disease. No apparent distress noted at the time of my visit; her only real complaint is that of difficulty sleeping last night without a clear reason; breathng/respiratory status remains relatively stable along with renal function. Exam Narrative: General: elderly but WD/WN female in NAD Heart: normal S1 and S2; no rub Lungs: clear anteriorly; decreased at bases Abdomen: soft, nontender, nondistended, positive bowel sounds Extremities: no cyanosis or clubbing; trace edema Skin: warm and dry Objective Data Vital Signs Vital Signs: Vital Signs Temp Pulse Resp BP Pulse Ox O2 Del Method 05/05/23 13:00 97.5 F L 91 18 103/52 L 99 05/05/23 12:00 83 05/05/23 08:00 84 05/05/23 08:00 Room Air 05/05/23 05:55 96.8 F L 82 18 100/58 L 98 05/05/23 04:02 86 05/05/23 00:02 84 05/04/23 20:50 97.3 F L 90 16 108/49 L 95 05/04/23 20:02 88 05/04/23 20:35 88 18 96 Room Air 05/04/23 20:46 88 05/04/23 16:01 90 Intake/Output Intake/Output: Intake & Output 05/02/23 05/03/23 05/04/23 05/05/23 23:59 23:59 23:59 23:59 Intake Total 1494 1490 2010 1000 Output Total 2650 1950 1450 1275 Balance -3856 -247 560 -950 Meds/Results Medications: Active Medications Generic Name Dose Route Start Last Admin Trade Name Freq PRN Reason Stop Dose Admin Acetaminophen 650 mg 05/01/23 17:18 05/05/23 00:33 Acetaminophen 325 Mg Tablet PO 650 mg Q6H PRN Administration Mild Pain (1-3) or Fever Albuterol/Ipratropium 3 ml 05/01/23 01:17 Ipratropium 0.5 Mg/Albuterol Sulfate 2.5 Mg Ampul.Neb 3 Ml INHALATION Q8H PRN Cough Atorvastatin Calcium 20 mg 05/04/23 21:00 05/04/23 20:46 Atorvastatin 20 Mg Tablet PO 20 mg QHS AGUEDA Administration Bisacodyl 10 mg 05/05/23 09:00
--- NOTE | 2023-05-05 18:11 | PM.IMPN ---
Progress Note: A&P Assessment and Plan (1) CHF (congestive heart failure): Code(s): I50.9 - Heart failure, unspecified Status: Acute Assessment and Plan: Combined systolic-diastolic. Presents shortness of breath and increasing pedal edema. Also with orthopnea for the past few days. Chest x-ray shows pulmonary edema with probably right pleural effusion. BNP greater than 30 K. Acute on chronic diastolic and systolic CHF Cannot exclude right lower lobe pneumonia although felt less likely. She has a cough that is nonproductive. White count is normal. She was started on Rocephin and azithromycin. IV Lasix given but blood pressure dropped to 82/57. She did receive a unit of blood. Blood pressure is better. Renal function stable. Changed to oral lasix Echo showing EF 30-35%, moderate pulmonary HTN, mild valvular disease and diastolic dysfunction. Moderate pericardial effusion without tamponade but evidence of invagination RA wall. (Echo in 2021 showing EF>70%) Cardiology consulted. Appreciate recommendations Continue Coreg. Consider adding aspirin although she has stool occult positive. Spironolactone is a consideration although her serum creatinine is very high. Nephrology following. (2) Anemia, macrocytic: Code(s): D53.9 - Nutritional anemia, unspecified Status: Acute Assessment and Plan: Hemoglobin was 7.9 in December. Hemoglobin 7.0 on admission here. Consider CHF from high-output failure although probably less likely since this anemia seems to be more chronic. B12 and folate levels normal. Iron studies noted. Stool guaiac positive. LDH normal. She received 1 unit packed red blood cells in the ED. Hgb 9-10 now Monitor H&H serially. Transfuse as needed. GI consulted and appreciate their input. Continue PPI. 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 UA is consistent with complicated UTI due to indwelling Kelley catheter. UCx collected. Rocephin started. Kelley catheter was changed out. UCx pseudomonas and klebsiella. Sensitive to Cefepime and levaquin On 05/04 cefepime changed to Levaquin. Continue for total 10 day antibiotic course. (4) Decubitus ulcer, heel: Code(s): L89.609 - Pressure ulcer of unspecified heel, unspecified stage Status: Acute Assessment and Plan: Patient with chronic heel ulcers that are improving per patient. This is managed at the [facility]. Wound care consult (5) Renal failure: Code(s): N19 - Unspecified kidney failure Status: Acute Assessment and Plan: Cr elevated on admission at 2.7. Last value of 0.9 was noted 2 years ago Patient states she has known renal failure but baseline is unknown. CK normal. Cr stable and she is tolerating diuresis. Consider nephrotic syndrome but proteinuria could be from the UTI Continue oral Lasix -nephrology consulted on 05/04 Plan 77-year-old female with past medical history remote morbid obesity status post gastric bypass surgery in the 1970s, chronic anemia, unspecified CKD, rheumatoid arthritis, multiple sclerosis, hyperlipidemia, hypothyroidism, depression and anxiety, GERD, combined systolic-diastolic heart failure presents with progressive fatigue and shortness of breath. BNP greater than 30,000 on admission. Admitted on 04/30/2023 Abnormal weight loss. Defer to outpatient workup although patient is not interested at this time. FEN: Saline lock IV GI prophylaxis: Ppi DVT prophylaxis: SCDs only Lines: Peripheral IV Code Status: DNR Dispo: Stable. Long-term resident of [place]. Continue to monitor hemoglobin and adjust medications. Subjective Date/time seen: 05/05/23 18:11 Interval history: No acute overnight events. The patient has no complaints. Review of Systems Review of Systems: A
[2023-05-05] MEDS: MELATONIN 3 MG TABLET PO (20:54)
[2023-05-05] MEDS: MELATONIN 5 MG TABLET PO (20:54)
[2023-05-05] MEDS: ATORVASTATIN 20 MG TABLET PO (20:57)
[2023-05-06] VITALS (12 sets, daily range): BP systolic 88–103; BP diastolic 42–57; PULSE 70–85; RESP 18–22; TEMP 35.8–37.3; O2SAT 94–100
[2023-05-06 06:26] LABS: Eosinophils Absolute Auto 0.1 K/mm3 (0-0.3); Eosinophils Percent Auto 2.7 % (0-4.4); Hematocrit 28.8 % (37.0-47.0); Hemoglobin 8.5 g/dL (12.0-15.0); Immature Granulocyte Absolute 0.01 K/mm3 (0.00-0.031); Immature Granulocyte Percent A 0.2 % (0-0.5); Immature Platelet Fraction Pct 3.9 % (0.9-11.2); Lymphocytes Absolute Auto 1.01 K/mm3 (0.9-3.2); Lymphocytes Percent Auto 24.8 % (18.3-44.2); Mean Corpuscular HGB Conc 29.5 g/dl (32-36); Mean Corpuscular Hemoglobin 31.1 pg (26-34); Mean Corpuscular Volume 105.5 fl (80-100); Mean Platelet Volume 10.5 fl (7.4-10.4); Monocytes Absolute Auto 0.2 K/mm3 (0.1-0.6); Monocytes Percent Auto 5.1 % (2.6-8.5); Neutrophils Absolute Auto 2.7 K/mm3 (1.3-6.7); Neutrophils Percent Auto 66.2 % (45.5-73.1); Platelet Count Result 106 k/mm3 (150-375); Red Blood Count 2.73 M/mm3 (4.2-5.4); Red Cell Distribution Width 15.1 % (11.5-14.5); White Blood Count 4.1 K/mm3 (4.5-10.0)
[2023-05-06] MEDS: LEVOTHYROXINE SODIUM 75 MCG TABLET PO (06:26)
[2023-05-06 06:35] LABS: Alanine Aminotransferase 13 U/L (6-35); Albumin Level 2.4 g/dL (3.5-5.1); Alkaline Phosphatase 117 U/L (38-126); Anion Gap 5 mmol/L (8-16); Aspartate Amino Transferase 19 U/L (14-36); Bilirubin,Total 0.2 mg/dL (0.2-1.3); Blood Urea Nitrogen 44 mg/dL (7-17); Carbon Dioxide 23 mmol/L (22-30); Chloride 111 mmol/L (98-107); Estimated CRCL calculation 13 ml/min; Estimated Glomerular Filt Rate 16; Glucose 86 mg/dL (65-110); Potassium 4.4 mmol/L (3.4-5.0); Sodium 139 mmol/L (137-145)
[2023-05-06 06:54] LABS: Anisocytosis 1+ (NORMAL); Platelet Estimate Decreased (Adequate); Schistocytes None Seen (NORMAL)
[2023-05-06] MEDS: ESCITALOPRAM OXALATE 10 MG TABLET PO (08:29)
[2023-05-06] MEDS: FUROSEMIDE 40 MG TABLET PO (08:29)
[2023-05-06] MEDS: MIRTAZAPINE 15 MG TABLET PO (08:30)
[2023-05-06] MEDS: carvediloL 6.25 MG TABLET PO ×2 (08:30→20:57)
[2023-05-06] MEDS: cycloSPORINE 0.4 ML OPHTH SOLUTION 1 DROP EACH EYE ×2 (08:30→20:57)
[2023-05-06] MEDS: FLUTICASONE PROPIONATE 0.05% NA SPR 16 GM BTL (*BKC) 1 SPRAY NASAL (08:30)
[2023-05-06] MEDS: CHOLECALCIFEROL 1,000 UNITS TABLET 1000 UNITS PO ×2 (08:30→16:49)
[2023-05-06] MEDS: ACIDOPHILUS/BULGARICUS CHEWABLE TABLET 1 TABLET PO ×2 (08:30→16:49)
[2023-05-06] MEDS: SENNOSIDES 8.6 MG TABLET PO (08:30)
[2023-05-06] MEDS: ACETAMINOPHEN 325 MG TABLET 650 MG PO ×3 (08:30→22:17)
[2023-05-06] MEDS: levoFLOXacin 500 MG TABLET PO (08:30)
--- NOTE | 2023-05-06 10:20 | PM.PNNEP ---
Progress Note: A&P Assessment and Plan (1) Chronic kidney disease, stage IV (severe): Code(s): N18.4 - Chronic kidney disease, stage 4 (severe) Status: Chronic Assessment and Plan: known issue/problem had been following with Dr. Wright at [facility] baseline creatinine has been running ~ 2.5 - 3.0mg/dl in the last year or so etiology of CKD multifactorial: recurrent/previous bouts of MARK/ARF in the past urinary retention/obstructive uropathy prerenal azotemia kidney stones urinary tract infections follow repeat labs and UOP (2) Acute exacerbation of CHF (congestive heart failure): Qualifiers: Heart failure type: combined systolic and diastolic Qualified Code(s): I50.43 - Acute on chronic combined systolic (congestive) and diastolic (congestive) heart failure Code(s): I50.9 - Heart failure, unspecified Status: Acute Assessment and Plan: Echo withEF of 30 - 35% s/p IV diuretics - transitioned to oral lasix Cardiology recommendations noted attempt GMDT as tolerated (3) Anemia: Code(s): D64.9 - Anemia, unspecified Status: Chronic Assessment and Plan: suspect partly related to underlying CKD s/p 1 unit PRBC transfusion anemia studies noted GI recommendations noted consider empiric ELISHA while hospitalized (4) Acute UTI: Code(s): N39.0 - Urinary tract infection, site not specified Status: Acute Assessment and Plan: complicated by presence of indwelling mccormick catheter mccormick needed due to known urinary retention related to MS mccormick catheter exchanged out on admission urine culture with Pseudomonas and Klebsiella on antibiotics (5) Decubitus ulcer, heel: Code(s): L89.609 - Pressure ulcer of unspecified heel, unspecified stage Status: Chronic Assessment and Plan: chronic issue improving with ongoing therapy at care home wound care following Will continue to follow. Subjective Date/time seen: 05/06/23 10:20 Interval history: Follow-up for chronic kidney disease. Continues to do reasonably well at the time of my visit; renal function as well as respiratory status/breathing seems to be stable if not improving with current therapy; no issues/events overnight or earlier this morning. Exam Narrative: General: elderly but WD/WN female in NAD Heart: normal S1 and S2; no rub Lungs: clear anteriorly; decreased at bases Abdomen: soft, nontender, nondistended, positive bowel sounds Extremities: no cyanosis or clubbing; trace edema Skin: warm and intact Objective Data Vital Signs Vital Signs: Vital Signs Temp Pulse Resp BP Pulse Ox O2 Del Method 05/06/23 08:30 Room Air 05/06/23 08:30 74 05/06/23 08:15 94 Room Air 05/06/23 06:15 96.4 F L 76 18 103/57 L 98 05/06/23 04:00 77 05/06/23 00:00 81 05/05/23 20:00 92 05/05/23 20:30 97 F L 97 18 117/59 L 97 05/05/23 20:56 90 Intake/Output Intake/Output: Intake & Output 05/03/23 05/04/23 05/05/23 05/06/23 23:59 23:59 23:59 23:59 Intake Total 1490 2009 1820 880 Output Total 1950 1450 1475 1450 Balance -460 560 345 -570 Meds/Results Medications: Active Medications Generic Name Dose Route Start Last Admin Trade Name Freq PRN Reason Stop Dose Admin Acetaminophen 650 mg 05/01/23 17:18 05/06/23 16:49 Acetaminophen 325 Mg Tablet PO 650 mg Q6H PRN Administration Mild Pain (1-3) or Fever Albuterol/Ipratropium 3 ml 05/01/23 01:17 Ipratropium 0.5 Mg/Albuterol Sulfate 2.5 Mg Ampul.Neb 3 Ml INHALATION Q8H PRN Cough Atorvastatin Calcium 20 mg 05/04/23 21:00 05/05/23 20:57 Atorvastatin 20 Mg Tablet PO 20 mg QHS AGUEDA Administration Bisacodyl 10 mg 05/05/23 09:00 05/05/23 08:54 Bisacodyl 5 Mg Tablet Ec PO 10 mg MoTh@0900 AGUEDA Administration Carvedilol 6.25 mg
--- NOTE | 2023-05-06 10:20 | P.PNNP_ITS ---
Progress Note: A&P Assessment and Plan (1) Chronic kidney disease, stage IV (severe): Code(s): N18.4 - Chronic kidney disease, stage 4 (severe) Status: Chronic Assessment and Plan: * known issue/problem * had been following with Dr. Wright at [facility] * baseline creatinine has been running ~ 2.5 - 3.0mg/dl in the last year or so * etiology of CKD multifactorial: * recurrent/previous bouts of MARK/ARF in the past * urinary retention/obstructive uropathy * prerenal azotemia * kidney stones * urinary tract infections * follow repeat labs and UOP (2) Acute exacerbation of CHF (congestive heart failure): Qualifiers: Heart failure type: combined systolic and diastolic Qualified Code(s): I50.43 - Acute on chronic combined systolic (congestive) and diastolic (conge stive) heart failure Code(s): I50.9 - Heart failure, unspecified Status: Acute Assessment and Plan: * Echo withEF of 30 - 35% * s/p IV diuretics - transitioned to oral lasix * Cardiology recommendations noted * attempt GMDT as tolerated (3) Anemia: Code(s): D64.9 - Anemia, unspecified Status: Chronic Assessment and Plan: * suspect partly related to underlying CKD * s/p 1 unit PRBC transfusion * anemia studies noted * GI recommendations noted * consider empiric ELISHA while hospitalized (4) Acute UTI: Code(s): N39.0 - Urinary tract infection, site not specified Status: Acute Assessment and Plan: * complicated by presence of indwelling mccormick catheter * mccormick needed due to known urinary retention related to MS * mccormick catheter exchanged out on admission * urine culture with Pseudomonas and Klebsiella * on antibiotics (5) Decubitus ulcer, heel: Code(s): L89.609 - Pressure ulcer of unspecified heel, unspecified stage Status: Chronic Assessment and Plan: * chronic issue * improving with ongoing therapy at [facility] * wound care following Will continue to follow. Subjective Date/time seen: 05/06/23 10:20 Interval history: Follow-up for chronic kidney disease. Continues to do reasonably well at the time of my visit; renal function as well as respiratory status/breathing seems to be stable if not improving with current therapy; no issues/events overnight or earlier this morning. Exam Narrative: General: elderly but WD/WN female in NAD Heart: normal S1 and S2; no rub Lungs: clear anteriorly; decreased at bases Abdomen: soft, nontender, nondistended, positive bowel sounds Extremities: no cyanosis or clubbing; trace edema Skin: warm and intact Objective Data Vital Signs Vital Signs: Vital Signs Temp Pulse Resp BP Pulse Ox O2 Del Method 05/06/23 08:30 Room Air 05/06/23 08:30 74 05/06/23 08:15 94 Room Air 05/06/23 06:15 96.4 F L 76 18 103/57 L 98 05/06/23 04:00 77 05/06/23 00:00 81 05/05/23 20:00 92 05/05/23 20:30 97 F L 97 18 117/59 L 97 05/05/23 20:56 90 Intake/Output Intake/Output: Intake & Output 05/03/23 05/04/23 05/05/23 05/06/23 23:59 23:59 23:59 23:59 Intake Total 1490 2009 1820 880 Output Total 1949 1450 1475 1450 Balance -460
--- NOTE | 2023-05-06 11:58 | PM.PNCARD ---
Progress Note: A&P Assessment and Plan (1) Cardiomyopathy: Qualifiers: Cardiomyopathy type: other Qualified Code(s): I42.8 - Other cardiomyopathies Code(s): I42.9 - Cardiomyopathy, unspecified Status: Acute Plan 77-year-old lady with: Significant left ventricular systolic dysfunction given risk factors and obvious coronary atherosclerosis with calcium this is almost certainly an ischemic myopathy. She has been started on beta-ulisses and seems to be tolerating that. Agree with my partner that Entresto and Aldactone would be poorly tolerated. I will start modest doses of hydralazine and isosorbide today. Conservative treatment of this is of course appropriate given her frailty, comorbidities and not resuscitate status. Will continue to follow her with you while she is in the hospital. Adarsh Ricardo MD [facility] Subjective Date/time seen: Date of service: 05/06/23 11:58 Interval history: Follow-up for new cardiomyopathy, CHF No new issues overnight. Patient states she did not sleep well just felt like she could relax. She feels like she might be getting a cold she has nasal congestion and sneezing but no shortness of breath or cough. No chest pain, palpitations. Feels okay otherwise but tired. Eating well. Sinus rhythm with occasional PVCs on telemetry. Date of service 03/05/2024: Patient is resting comfortably sleeping in bed when I came in to see her. Upon awakening she seems to be in remarkably good spirits and is reporting no symptoms. Exam Narrative: General: Pleasant elderly female lying supine in bed, well developed, alert and oriented x3. No apparent distress, comfortable, pleasant, and cooperative. Head: atraumatic, normocephalic Eyes: EOM intact, sclerae anicteric, conjunctivae unremarkable Ears/Nose: external inspection of ears and nose were grossly normal Mouth/Throat: oral mucosa pink and moist Neck: supple, normal range of motion, no jugular venous distention or carotid bruits, thyroid nonpalpable, trachea midline. Cardiac: Regular rate and rhythm, normal S1-S2, soft early systolic murmur No gallops or rubs. Lungs: Clear to auscultation bilaterally, no rales, wheezes, or rhonchi. Abdomen: Obese, soft, tender to palpation diffusely, nondistended, positive bowel sounds throughout. No appreciable hepatosplenomegaly, rebound guarding or rigidity noted. Abdominal aorta nonpalpable, no appreciable bruits. Extremities: Trace bilateral pedal edema, no clubbing, or cyanosis. Extremities warm and well perfused. Skin: Warm and dry without ecchymoses, rashes, and/or petechiae. Musculoskeletal: Muscle strength and tone intact throughout without obvious deformities. Vascular: Carotid upstrokes 2+ bilaterally, radial pulses 2+ bilaterally, dorsalis pedis pulses 2+ bilaterally Neurologic: Cranial nerves 2-12 grossly intact, examination grossly nonfocal Psychiatric: Mood calm and appropriate. Objective Data Vital Signs Vital Signs: Vital Signs - 24 hr 05/05/23 12:00 05/05/23 14:00 05/05/23 16:00 Temperature 36.4 C L Pulse Rate 83 91 92 Respiratory Rate 18 Blood Pressure 103/52 L Pulse Oximetry 99 Oxygen Delivery 05/05/23 20:56 05/05/23 20:30 05/05/23 20:00 Temperature 36.1 C L Pulse Rate 90 97 92 Respiratory Rate 18 Blood Pressure 117/59 L Pulse Oximetry 97 Oxygen Delivery 05/06/23 00:00 05/06/23 04:00 05/06/23 06:15 Temperature 35.8 C L Pulse Rate 81 77 76 Respiratory Rate 18 Blood Pressure 103/57 L Pulse Oximetry 98 Oxygen Delivery 05/06/23 08:15 05/06/23 08:30 05/06/23 08:30 Temperature Pulse Rate 74 Respiratory Rate Blood Pressure Pulse Oximetry 94 Oxygen Delivery Room Air Room Air Intake/Output Intake/Output: Intake & Output 05/03/23 05/04/23 05/05/23 05/06/23 23:59 23:59 23:59 23:59 Intake Total 1490 2009 4273 639 Outpu
[2023-05-06] MEDS: PANTOPRAZOLE SODIUM IV 40 MG VIAL IV PUSH (12:00)
[2023-05-06] MEDS: hydrALAZINE 10 MG TABLET PO ×2 (12:14→16:49)
--- NOTE | 2023-05-06 12:59 | PCNFU ---
Nutrition Follow-Up Complete: Increased protein energy needs related to wound healing as evidenced by stage III pressure injury Goal: Adequate PO intake at least 75% meals and supplements to support wound healing - goal is being met. Continue with same goal Pt current nutrition is Heart healthy diet. Intakes 75-100%. [place] BID fro 90 kcal and 2.5 g protein, Ensure Clear BID for additional 240 kcal and 8 g protein. Nutrition recommendation: No new recommendations. Continue with current nutrition care plan. Agree with orders. Last recorded weight is 54.5 kg. Bowel Motility: +3 BMs 05/05/23 Labs Reviewed: Hgb 8.5, Hct 28.8, Alb 2.4, GFR 16, BUN 44, Cre 2.9 Meds Noted: Lasix, dulcolax, miralax, lactinex, Remeron Skin: Stage III L heel Additional Notes: Intakes are good 75-100%. Some intake recorded of Ensure and [place]. Wound is stable. No changes to current care plan. Agree with orders Monitoring intakes, weights, labs, supplement tolerance, wound healing Follow up in 5 days
--- NOTE | 2023-05-06 16:09 | PM.IMPN ---
Progress Note: A&P Assessment and Plan (1) CHF (congestive heart failure): Code(s): I50.9 - Heart failure, unspecified Status: Acute Assessment and Plan: Combined systolic-diastolic. Presents shortness of breath and increasing pedal edema. Also with orthopnea for the past few days. Chest x-ray shows pulmonary edema with probably right pleural effusion. BNP greater than 30 K. Acute on chronic diastolic and systolic CHF Cannot exclude right lower lobe pneumonia although felt less likely. She has a cough that is nonproductive. White count is normal. She was started on Rocephin and azithromycin. IV Lasix given but blood pressure dropped to 82/57. She did receive a unit of blood. Blood pressure is better. Renal function stable. Changed to oral lasix Echo showing EF 30-35%, moderate pulmonary HTN, mild valvular disease and diastolic dysfunction. Moderate pericardial effusion without tamponade but evidence of invagination RA wall. (Echo in 2021 showing EF>70%) Cardiology consulted. Appreciate recommendations Continue Coreg. Consider adding aspirin although she has stool occult positive. Spironolactone is a consideration although her serum creatinine is very high. Nephrology following. Continue to monitor on hydralazine and isosorbide. Continue telemetry (2) Anemia, macrocytic: Code(s): D53.9 - Nutritional anemia, unspecified Status: Acute Assessment and Plan: Hemoglobin was 7.9 in December. Hemoglobin 7.0 on admission here. Consider CHF from high-output failure although probably less likely since this anemia seems to be more chronic. B12 and folate levels normal. Iron studies noted. Stool guaiac positive. LDH normal. She received 1 unit packed red blood cells in the ED. Hgb 9-10 now Monitor H&H serially. Transfuse as needed. GI consulted and appreciate their input. PPI switch from 40 mg b.i.d. to 40 mg p.o. q.day. 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 UA is consistent with complicated UTI due to indwelling Kelley catheter. UCx collected. Rocephin started. Kelley catheter was changed out. UCx pseudomonas and klebsiella. Sensitive to Cefepime and levaquin On 05/04 cefepime changed to Levaquin. Continue for total 10 day antibiotic course. (4) Decubitus ulcer, heel: Code(s): L89.609 - Pressure ulcer of unspecified heel, unspecified stage Status: Acute Assessment and Plan: Patient with chronic heel ulcers that are improving per patient. This is managed at the assisted. Wound care consult (5) Renal failure: Code(s): N19 - Unspecified kidney failure Status: Acute Assessment and Plan: Cr elevated on admission at 2.7. Last value of 0.9 was noted 2 years ago Patient states she has known renal failure but baseline is unknown. CK normal. Cr stable and she is tolerating diuresis. Consider nephrotic syndrome but proteinuria could be from the UTI Continue oral Lasix -nephrology consulted on 05/04 Plan 77-year-old female with past medical history remote morbid obesity status post gastric bypass surgery in the 1970s, chronic anemia, unspecified CKD, rheumatoid arthritis, multiple sclerosis, hyperlipidemia, hypothyroidism, depression and anxiety, GERD, combined systolic-diastolic heart failure presents with progressive fatigue and shortness of breath. BNP greater than 30,000 on admission. Admitted on 04/30/2023 Abnormal weight loss. Defer to outpatient workup although patient is not interested at this time. FEN: Saline lock IV GI prophylaxis: Ppi DVT prophylaxis: SCDs only Lines: Peripheral IV Code Status: DNR Dispo: Stable. Long-term resident of [place]. Continue to monitor hemoglobin and adjust medications. Subjective Date/time seen: 05/06/23 16:09 Interval history
[2023-05-06] MEDS: MELATONIN 5 MG TABLET PO (20:58)
[2023-05-06] MEDS: MELATONIN 3 MG TABLET PO (20:58)
[2023-05-06] MEDS: ATORVASTATIN 20 MG TABLET PO (20:58)
[2023-05-07] VITALS (14 sets, daily range): BP systolic 90–101; BP diastolic 47–57; PULSE 73–88; RESP 14–18; TEMP 36.2–36.5; O2SAT 97–98
[2023-05-07 06:16] LABS: Basophils Percent Auto 0.5 % (0.2-1.2); Eosinophils Absolute Auto 0.1 K/mm3 (0-0.3); Eosinophils Percent Auto 3.6 % (0-4.4); Hematocrit 27.5 % (37.0-47.0); Hemoglobin 8.2 g/dL (12.0-15.0); Immature Granulocyte Absolute 0.01 K/mm3 (0.00-0.031); Immature Granulocyte Percent A 0.3 % (0-0.5); Immature Platelet Fraction Pct 4.5 % (0.9-11.2); Lymphocytes Absolute Auto 0.98 K/mm3 (0.9-3.2); Lymphocytes Percent Auto 25.3 % (18.3-44.2); Mean Corpuscular HGB Conc 29.8 g/dl (32-36); Mean Corpuscular Hemoglobin 31.3 pg (26-34); Mean Platelet Volume 10.8 fl (7.4-10.4); Monocytes Absolute Auto 0.2 K/mm3 (0.1-0.6); Monocytes Percent Auto 6.2 % (2.6-8.5); Neutrophils Absolute Auto 2.5 K/mm3 (1.3-6.7); Neutrophils Percent Auto 64.1 % (45.5-73.1); Platelet Count Result 97 k/mm3 (150-375); Red Blood Count 2.62 M/mm3 (4.2-5.4); White Blood Count 3.9 K/mm3 (4.5-10.0)
[2023-05-07 06:28] LABS: Anion Gap 5 mmol/L (8-16); Blood Urea Nitrogen 48 mg/dL (7-17); Carbon Dioxide 22 mmol/L (22-30); Chloride 112 mmol/L (98-107); Estimated CRCL calculation 12 ml/min; Estimated Glomerular Filt Rate 15; Glucose 83 mg/dL (65-110); Potassium 4.5 mmol/L (3.4-5.0); Sodium 139 mmol/L (137-145)
[2023-05-07] MEDS: LEVOTHYROXINE SODIUM 75 MCG TABLET PO (06:35)
[2023-05-07 06:59] LABS: Anisocytosis 1+ (NORMAL); Hypochromasia 1+ (NORMAL); Schistocytes None Seen (NORMAL)
[2023-05-07] MEDS: ACIDOPHILUS/BULGARICUS CHEWABLE TABLET 1 TABLET PO ×2 (08:04→16:23)
[2023-05-07] MEDS: ESCITALOPRAM OXALATE 10 MG TABLET PO (08:04)
[2023-05-07] MEDS: ISOSORBIDE MONONITRATE 30 MG TAB.ER.24H PO (08:04)
[2023-05-07] MEDS: FLUTICASONE PROPIONATE 0.05% NA SPR 16 GM BTL (*BKC) 1 SPRAY NASAL (08:04)
[2023-05-07] MEDS: MIRTAZAPINE 15 MG TABLET PO (08:04)
[2023-05-07] MEDS: cycloSPORINE 0.4 ML OPHTH SOLUTION 1 DROP EACH EYE ×2 (08:04→21:18)
[2023-05-07] MEDS: FUROSEMIDE 40 MG TABLET PO (08:04)
[2023-05-07] MEDS: PANTOPRAZOLE 40 MG TABLET PO (08:04)
[2023-05-07] MEDS: CHOLECALCIFEROL 1,000 UNITS TABLET 1000 UNITS PO ×2 (08:04→16:23)
[2023-05-07] MEDS: carvediloL 6.25 MG TABLET PO (08:04)
--- NOTE | 2023-05-07 11:46 | P.PNNP_ITS ---
Progress Note: A&P Assessment and Plan (1) Chronic kidney disease, stage IV (severe): Code(s): N18.4 - Chronic kidney disease, stage 4 (severe) Status: Chronic Assessment and Plan: * known issue/problem * had been following with Dr. Wright at 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 Code(s): I50.9 - Heart failure, unspecified Status: Acute Assessment and Plan: * Echo withEF of 30 - 35% * s/p IV diuretics - transitioned to oral lasix * Cardiology recommendations noted * attempt GMDT as tolerated (3) Anemia: Code(s): D64.9 - Anemia, unspecified Status: Chronic Assessment and Plan: * suspect partly related to underlying CKD * s/p 1 unit PRBC transfusion * anemia studies noted * GI recommendations noted * consider empiric ELISHA while hospitalized (4) Acute UTI: Code(s): N39.0 - Urinary tract infection, site not specified Status: Acute Assessment and Plan: * complicated by presence of indwelling mccormick catheter * mccormick needed due to known 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 Subjective Date/time seen: 05/07/23 11:46 Interval history: Follow-up for chronic kidney disease. No new issiues or complaints voiced at the time of my visit; no events overnight or earlier today; renal function remains relatively stable in spite on ongoing diuresis; BP on the low side but she is asymptomatic from this issue. Exam Narrative: General: elderly but WD/WN female in NAD Heart: normal S1 and S2; no rub Lungs: clear anteriorly; decreased at bases Abdomen: soft, nontender, nondistended, positive bowel sounds Extremities: no cyanosis or clubbing; trace edema Skin: no rash Objective Data Vital Signs Vital Signs: Vital Signs Temp Pulse Resp BP Pulse Ox O2 Del Method 05/07/23 11:30 97.5 F L 82 16 90/50 L 98 05/07/23 09:21 95/56 L 05/07/23 08:00 Room Air 05/07/23 08:04 77 05/07/23 08:01 77 101/57 L 97 05/07/23 05:48 97.2 F L 74 14 100/50 L 98 05/07/23 04:00 73 05/07/23 00:00 74 05/06/23 20:30 85 05/06/23 22:00 97.3 F L 84 22 H 101/52 L 100 05/06/23 20:57 70 Intake/Output Intake/Output: Intake & Output 05/04/23 05/05/23 05/06/23 05/07/23 23:59 23:59 23:59 23:59
--- NOTE | 2023-05-07 11:46 | PM.PNNEP ---
Progress Note: A&P Assessment and Plan (1) Chronic kidney disease, stage IV (severe): Code(s): N18.4 - Chronic kidney disease, stage 4 (severe) Status: Chronic Assessment and Plan: known issue/problem had been following with Dr. Wright at [facility] baseline creatinine has been running ~ 2.5 - 3.0mg/dl in the last year or so etiology of CKD multifactorial: recurrent/previous bouts of MARK/ARF in the past urinary retention/obstructive uropathy prerenal azotemia kidney stones urinary tract infections follow repeat labs and UOP (2) Acute exacerbation of CHF (congestive heart failure): Qualifiers: Heart failure type: combined systolic and diastolic Qualified Code(s): I50.43 - Acute on chronic combined systolic (congestive) and diastolic (congestive) heart failure Code(s): I50.9 - Heart failure, unspecified Status: Acute Assessment and Plan: Echo withEF of 30 - 35% s/p IV diuretics - transitioned to oral lasix Cardiology recommendations noted attempt GMDT as tolerated (3) Anemia: Code(s): D64.9 - Anemia, unspecified Status: Chronic Assessment and Plan: suspect partly related to underlying CKD s/p 1 unit PRBC transfusion anemia studies noted GI recommendations noted consider empiric ELISHA while hospitalized (4) Acute UTI: Code(s): N39.0 - Urinary tract infection, site not specified Status: Acute Assessment and Plan: complicated by presence of indwelling mccormick catheter mccormick needed due to known urinary retention related to MS mccormick catheter exchanged out on admission urine culture with Pseudomonas and Klebsiella on antibiotics (5) Decubitus ulcer, heel: Code(s): L89.609 - Pressure ulcer of unspecified heel, unspecified stage Status: Chronic Assessment and Plan: chronic issue improving with ongoing therapy at long term wound care following Will continue to follow. Subjective Date/time seen: 05/07/23 11:46 Interval history: Follow-up for chronic kidney disease. No new issiues or complaints voiced at the time of my visit; no events overnight or earlier today; renal function remains relatively stable in spite on ongoing diuresis; BP on the low side but she is asymptomatic from this issue. Exam Narrative: General: elderly but WD/WN female in NAD Heart: normal S1 and S2; no rub Lungs: clear anteriorly; decreased at bases Abdomen: soft, nontender, nondistended, positive bowel sounds Extremities: no cyanosis or clubbing; trace edema Skin: no rash Objective Data Vital Signs Vital Signs: Vital Signs Temp Pulse Resp BP Pulse Ox O2 Del Method 05/07/23 11:30 97.5 F L 82 16 90/50 L 98 05/07/23 09:21 95/56 L 05/07/23 08:00 Room Air 05/07/23 08:04 77 05/07/23 08:01 77 101/57 L 97 05/07/23 05:48 97.2 F L 74 14 100/50 L 98 05/07/23 04:00 73 05/07/23 00:00 74 05/06/23 20:30 85 05/06/23 22:00 97.3 F L 84 22 H 101/52 L 100 05/06/23 20:57 70 Intake/Output Intake/Output: Intake & Output 05/04/23 05/05/23 05/06/23 05/07/23 23:59 23:59 23:59 23:59 Intake Total 2009 1819 2001 147 Output Total 1450 1475 2200 801 Balance 560 345 -198 669 Meds/Results Medications: Active Medications Generic Name Dose Route Start Last Admin Trade Name Freq PRN Reason Stop Dose Admin Acetaminophen 650 mg 05/01/23 17:18 05/06/23 22:17 Acetaminophen 325 Mg Tablet PO 650 mg Q6H PRN Administration Mild Pain (1-3) or Fever Albuterol/Ipratropium 3 ml 05/01/23 01:17 Ipratropium 0.5 Mg/Albuterol Sulfate 2.5 Mg Ampul.Neb 3 Ml INHALATION Q8H PRN Cough Atorvastatin Calcium 20 mg 05/04/23 21:00 05/06/23 20:58 Atorvastatin 20 Mg Tablet PO 20 mg QHS AGUEDA Administration Bisacodyl 10 mg 05/05/23 09:00 05/05/23 08:54 Bisacodyl 5
--- NOTE | 2023-05-07 16:17 | PM.IMPN ---
Progress Note: A&P Assessment and Plan (1) CHF (congestive heart failure): Code(s): I50.9 - Heart failure, unspecified Status: Acute Assessment and Plan: Combined systolic-diastolic. Presents shortness of breath and increasing pedal edema. Also with orthopnea for the past few days. Chest x-ray shows pulmonary edema with probably right pleural effusion. BNP greater than 30 K. Acute on chronic diastolic and systolic CHF Cannot exclude right lower lobe pneumonia although felt less likely. She has a cough that is nonproductive. White count is normal. She was started on Rocephin and azithromycin. IV Lasix given but blood pressure dropped to 82/57. She did receive a unit of blood. Blood pressure is better. Renal function stable. Changed to oral lasix Echo showing EF 30-35%, moderate pulmonary HTN, mild valvular disease and diastolic dysfunction. Moderate pericardial effusion without tamponade but evidence of invagination RA wall. (Echo in 2021 showing EF>70%) Cardiology consulted. Appreciate recommendations Continue Coreg. Consider adding aspirin although she has stool occult positive. Spironolactone is a consideration although her serum creatinine is very high. Nephrology following. Continue to monitor on hydralazine and isosorbide. Continue telemetry On 05/07 her blood pressure is low after starting hydralazine and Imdur. Discontinue those medications and hold Coreg. Continue telemetry and hopefully discharge tomorrow accepting her blood pressure will not handle aggressive management. (2) Anemia, macrocytic: Code(s): D53.9 - Nutritional anemia, unspecified Status: Acute Assessment and Plan: Hemoglobin was 7.9 in December. Hemoglobin 7.0 on admission here. Consider CHF from high-output failure although probably less likely since this anemia seems to be more chronic. B12 and folate levels normal. Iron studies noted. Stool guaiac positive. LDH normal. She received 1 unit packed red blood cells in the ED. Hgb 9-10 now Monitor H&H serially. Transfuse as needed. GI consulted and appreciate their input. PPI switch from 40 mg b.i.d. to 40 mg p.o. q.day. 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 UA is consistent with complicated UTI due to indwelling Kelley catheter. UCx collected. Rocephin started. Kelley catheter was changed out. UCx pseudomonas and klebsiella. Sensitive to Cefepime and levaquin On 05/04 cefepime changed to Levaquin. Continue for total 10 day antibiotic course. (4) Decubitus ulcer, heel: Code(s): L89.609 - Pressure ulcer of unspecified heel, unspecified stage Status: Acute Assessment and Plan: Patient with chronic heel ulcers that are improving per patient. This is managed at the shelter. Wound care consult (5) Renal failure: Code(s): N19 - Unspecified kidney failure Status: Acute Assessment and Plan: Cr elevated on admission at 2.7. Last value of 0.9 was noted 2 years ago Patient states she has known renal failure but baseline is unknown. CK normal. Cr stable and she is tolerating diuresis. Consider nephrotic syndrome but proteinuria could be from the UTI Continue oral Lasix -nephrology consulted on 05/04 Plan 77-year-old female with past medical history remote morbid obesity status post gastric bypass surgery in the 1970s, chronic anemia, unspecified CKD, rheumatoid arthritis, multiple sclerosis, hyperlipidemia, hypothyroidism, depression and anxiety, GERD, combined systolic-diastolic heart failure presents with progressive fatigue and shortness of breath. BNP greater than 30,000 on admission. Admitted on 04/30/2023 Abnormal weight loss. Defer to outpatient workup although patient is not interested at this time. FEN: Saline lock IV GI prophylaxis: Ppi DVT prop
[2023-05-07] MEDS: ACETAMINOPHEN 325 MG TABLET 650 MG PO (17:46)
[2023-05-07] MEDS: ATORVASTATIN 20 MG TABLET PO (21:18)
[2023-05-08] VITALS (9 sets, daily range): BP systolic 95–99; BP diastolic 38–56; PULSE 76–90; RESP 16–20; TEMP 36.3–36.8; O2SAT 95–99
[2023-05-08] MEDS: ACETAMINOPHEN 325 MG TABLET 650 MG PO ×2 (03:17→22:47)
[2023-05-08 06:47] LABS: Hematocrit 26.4 % (37.0-47.0); Immature Platelet Fraction Pct 4.6 % (0.9-11.2); Mean Corpuscular HGB Conc 30.3 g/dl (32-36); Mean Corpuscular Hemoglobin 31.7 pg (26-34); Mean Corpuscular Volume 104.8 fl (80-100); Platelet Count Result 105 k/mm3 (150-375); Red Blood Count 2.52 M/mm3 (4.2-5.4); Red Cell Distribution Width 14.9 % (11.5-14.5); White Blood Count 4.3 K/mm3 (4.5-10.0)
[2023-05-08] MEDS: LEVOTHYROXINE SODIUM 75 MCG TABLET PO (06:49)
[2023-05-08 07:06] LABS: Anion Gap 6 mmol/L (8-16); Blood Urea Nitrogen 54 mg/dL (7-17); Calcium 7.8 mg/dL (8.4-10.2); Carbon Dioxide 23 mmol/L (22-30); Chloride 110 mmol/L (98-107); Estimated CRCL calculation 12 ml/min; Estimated Glomerular Filt Rate 15; Glucose 84 mg/dL (65-110); Potassium 4.4 mmol/L (3.4-5.0); Sodium 139 mmol/L (137-145)
[2023-05-08] MEDS: CHOLECALCIFEROL 1,000 UNITS TABLET 1000 UNITS PO ×2 (08:45→16:31)
[2023-05-08] MEDS: cycloSPORINE 0.4 ML OPHTH SOLUTION 1 DROP EACH EYE (08:45)
[2023-05-08] MEDS: levoFLOXacin 500 MG TABLET PO (08:45)
[2023-05-08] MEDS: ACIDOPHILUS/BULGARICUS CHEWABLE TABLET 1 TABLET PO ×2 (08:45→16:31)
[2023-05-08] MEDS: PANTOPRAZOLE 40 MG TABLET PO (08:46)
[2023-05-08] MEDS: FUROSEMIDE 40 MG TABLET PO (08:46)
[2023-05-08] MEDS: ESCITALOPRAM OXALATE 10 MG TABLET PO (08:46)
[2023-05-08] MEDS: MIRTAZAPINE 15 MG TABLET PO (08:46)
[2023-05-08] MEDS: FLUTICASONE PROPIONATE 0.05% NA SPR 16 GM BTL (*BKC) 1 SPRAY NASAL (08:47)
--- NOTE | 2023-05-08 12:26 | P.PNNP_ITS ---
Progress Note: A&P Assessment and Plan (1) Chronic kidney disease, stage IV (severe): Code(s): N18.4 - Chronic kidney disease, stage 4 (severe) Status: Chronic Assessment and Plan: * known issue/problem * had been following with Dr. 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 Code(s): I50.9 - Heart failure, unspecified Status: Acute Assessment and Plan: * Echo withEF of 30 - 35% * s/p IV diuretics - transitioned to oral lasix * Cardiology recommendations noted * attempt GMDT as tolerated (3) Anemia: Code(s): D64.9 - Anemia, unspecified Status: Chronic Assessment and Plan: * suspect partly related to underlying CKD * s/p 1 unit PRBC transfusion * anemia studies noted * GI recommendations noted * consider empiric ELISHA while hospitalized (4) Acute UTI: Code(s): N39.0 - Urinary tract infection, site not specified Status: Acute Assessment and Plan: * complicated by presence of indwelling mccormick catheter * mccormick needed due to known urinary retention related to MS * mccormick catheter exchanged out on admission * urine culture with Pseudomonas and Klebsiella * on antibiotics (5) Decubitus ulcer, heel: Code(s): L89.609 - Pressure ulcer of unspecified heel, unspecified stage Status: Chronic Assessment and Plan: * chronic issue * improving with ongoing therapy at group home * wound care following Will continue to follow. Subjective Date/time seen: 05/08/23 12:26 Interval history: Follow-up for chronic kidney disease. No apparent distress noted at this time; breathing and renal function remain stable; no issues/events overnight or earlier this morning; overall, feels generally well. Exam Narrative: General: elderly but WD/WN female in NAD Heart: normal S1 and S2; no rub Lungs: clear anteriorly; decreased at bases Abdomen: soft, nontender, nondistended, positive bowel sounds Extremities: no cyanosis or clubbing; trace edema Skin: no nodules Objective Data Vital Signs Vital Signs: Vital Signs Temp Pulse Resp BP Pulse Ox O2 Del Method 05/08/23 08:45 Room Air 05/08/23 06:00 98.2 F 76 20 95/56 L 99 05/08/23 04:00 76 05/08/23 00:00 79 05/07/23 20:15 88 05/07/23 21:18 97.7 F 87 18 97/47 L 97 Intake/Output Intake/Output: Intake & Output 05/05/23 05/06/23 05/07/23 05/08/23 23:59 23:59 23:59 23:59 Intake Total 1820 2001 1710 790 Output Total 1475 2200 1801 900 Balance 345 -198 -91 -110 Meds/Results Medications: Active Medications Generic Name Dose Route Start Last Ad
--- NOTE | 2023-05-08 12:26 | PM.PNNEP ---
Progress Note: A&P Assessment and Plan (1) Chronic kidney disease, stage IV (severe): Code(s): N18.4 - Chronic kidney disease, stage 4 (severe) Status: Chronic Assessment and Plan: known issue/problem had been following with Dr. Wright at [facility] baseline creatinine has been running ~ 2.5 - 3.0mg/dl in the last year or so etiology of CKD multifactorial: recurrent/previous bouts of MARK/ARF in the past urinary retention/obstructive uropathy prerenal azotemia kidney stones urinary tract infections follow repeat labs and UOP (2) Acute exacerbation of CHF (congestive heart failure): Qualifiers: Heart failure type: combined systolic and diastolic Qualified Code(s): I50.43 - Acute on chronic combined systolic (congestive) and diastolic (congestive) heart failure Code(s): I50.9 - Heart failure, unspecified Status: Acute Assessment and Plan: Echo withEF of 30 - 35% s/p IV diuretics - transitioned to oral lasix Cardiology recommendations noted attempt GMDT as tolerated (3) Anemia: Code(s): D64.9 - Anemia, unspecified Status: Chronic Assessment and Plan: suspect partly related to underlying CKD s/p 1 unit PRBC transfusion anemia studies noted GI recommendations noted consider empiric ELISHA while hospitalized (4) Acute UTI: Code(s): N39.0 - Urinary tract infection, site not specified Status: Acute Assessment and Plan: complicated by presence of indwelling mccormick catheter mccormick needed due to known urinary retention related to MS mccormick catheter exchanged out on admission urine culture with Pseudomonas and Klebsiella on antibiotics (5) Decubitus ulcer, heel: Code(s): L89.609 - Pressure ulcer of unspecified heel, unspecified stage Status: Chronic Assessment and Plan: chronic issue improving with ongoing therapy at [facility] following Will continue to follow. Subjective Date/time seen: 05/08/23 12:26 Interval history: Follow-up for chronic kidney disease. No apparent distress noted at this time; breathing and renal function remain stable; no issues/events overnight or earlier this morning; overall, feels generally well. Exam Narrative: General: elderly but WD/WN female in NAD Heart: normal S1 and S2; no rub Lungs: clear anteriorly; decreased at bases Abdomen: soft, nontender, nondistended, positive bowel sounds Extremities: no cyanosis or clubbing; trace edema Skin: no nodules Objective Data Vital Signs Vital Signs: Vital Signs Temp Pulse Resp BP Pulse Ox O2 Del Method 05/08/23 08:45 Room Air 05/08/23 06:00 98.2 F 76 20 95/56 L 99 05/08/23 04:00 76 05/08/23 00:00 79 05/07/23 20:15 88 05/07/23 21:18 97.7 F 87 18 97/47 L 97 Intake/Output Intake/Output: Intake & Output 05/05/23 05/06/23 05/07/23 05/08/23 23:59 23:59 23:59 23:59 Intake Total 1820 2002 1710 790 Output Total 1475 2200 1801 900 Balance 345 -198 -91 -110 Meds/Results Medications: Active Medications Generic Name Dose Route Start Last Admin Trade Name Freq PRN Reason Stop Dose Admin Acetaminophen 650 mg 05/01/23 17:18 05/08/23 03:17 Acetaminophen 325 Mg Tablet PO 650 mg Q6H PRN Administration Mild Pain (1-3) or Fever Albuterol/Ipratropium 3 ml 05/01/23 01:17 Ipratropium 0.5 Mg/Albuterol Sulfate 2.5 Mg Ampul.Neb 3 Ml INHALATION Q8H PRN Cough Atorvastatin Calcium 20 mg 05/04/23 21:00 05/07/23 21:18 Atorvastatin 20 Mg Tablet PO 20 mg QHS AGUEDA Administration Bisacodyl 10 mg 05/05/23 09:00 05/05/23 08:54 Bisacodyl 5 Mg Tablet Ec PO 10 mg MoTh@0900 AGUEDA Administration Carvedilol 6.25 mg 05/03/23 21:00 05/07/23 08:04 Carvedilol 6.25 Mg Tablet PO 6.25 mg Q12HR AGUEDA Administration Cyclosporine 1 drop 05/01/23 09:00 05/08/23 08:45
--- NOTE | 2023-05-08 15:20 | PM.IMPN ---
Progress Note: A&P Assessment and Plan (1) CHF (congestive heart failure): Code(s): I50.9 - Heart failure, unspecified Status: Acute Assessment and Plan: Combined systolic-diastolic. Presents shortness of breath and increasing pedal edema. Also with orthopnea for the past few days. Chest x-ray shows pulmonary edema with probably right pleural effusion. BNP greater than 30 K. Acute on chronic diastolic and systolic CHF Cannot exclude right lower lobe pneumonia although felt less likely. She has a cough that is nonproductive. White count is normal. She was started on Rocephin and azithromycin. IV Lasix given but blood pressure dropped to 82/57. She did receive a unit of blood. Blood pressure is better. Renal function stable. Changed to oral lasix Echo showing EF 30-35%, moderate pulmonary HTN, mild valvular disease and diastolic dysfunction. Moderate pericardial effusion without tamponade but evidence of invagination RA wall. (Echo in 2021 showing EF>70%) Cardiology consulted. Appreciate recommendations Continue Coreg. Consider adding aspirin although she has stool occult positive. Spironolactone is a consideration although her serum creatinine is very high. Nephrology following. Continue to monitor on hydralazine and isosorbide. Continue telemetry On 05/07 her blood pressure is low after starting hydralazine and Imdur. Discontinue those medications and hold Coreg. Continue telemetry and hopefully discharge tomorrow accepting her blood pressure will not handle aggressive management. On 05/08 her blood pressure continues to be low in spite of discontinuing the hydralazine and Imdur. She is net negative since admission and appears clinically dehydrated. Holding Coreg and discontinuing Lasix. Albumin very low at 2.4 given 1 time dose IV 50 g. May gently bolus her if needed as well. (2) Anemia, macrocytic: Code(s): D53.9 - Nutritional anemia, unspecified Status: Acute Assessment and Plan: Hemoglobin was 7.9 in December. Hemoglobin 7.0 on admission here. Consider CHF from high-output failure although probably less likely since this anemia seems to be more chronic. B12 and folate levels normal. Iron studies noted. Stool guaiac positive. LDH normal. She received 1 unit packed red blood cells in the ED. Hgb 9-10 now Monitor H&H serially. Transfuse as needed. GI consulted and appreciate their input. PPI switch from 40 mg b.i.d. to 40 mg p.o. q.day. 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 UA is consistent with complicated UTI due to indwelling Kelley catheter. UCx collected. Rocephin started. Kelley catheter was changed out. UCx pseudomonas and klebsiella. Sensitive to Cefepime and levaquin On 05/04 cefepime changed to Levaquin. Continue for total 10 day antibiotic course. (4) Decubitus ulcer, heel: Code(s): L89.609 - Pressure ulcer of unspecified heel, unspecified stage Status: Acute Assessment and Plan: Patient with chronic heel ulcers that are improving per patient. This is managed at the [facility]. Wound care consult (5) Renal failure: Code(s): N19 - Unspecified kidney failure Status: Acute Assessment and Plan: Cr elevated on admission at 2.7. Last value of 0.9 was noted 2 years ago Patient states she has known renal failure but baseline is unknown. CK normal. Cr stable and she is tolerating diuresis. Consider nephrotic syndrome but proteinuria could be from the UTI Continue oral Lasix -nephrology consulted on 05/04 -on 05/08 her serum creatinine creeping up. Now 3.1 and this is likely due to hypovolemia. Lasix discontinued continue to monitor. Appreciate Nephrology recommendations Plan 77-year-old female with past medical history remote morbid obesity status post gastric bypas
[2023-05-08] MEDS: ATORVASTATIN 20 MG TABLET PO (22:47)
[2023-05-09] VITALS (8 sets, daily range): BP systolic 100–110; BP diastolic 55–60; PULSE 70–88; RESP 17–20; TEMP 36.3–36.6; O2SAT 93–99
[2023-05-09] MEDS: LEVOTHYROXINE SODIUM 75 MCG TABLET PO (05:48)
[2023-05-09 06:52] LABS: Alanine Aminotransferase 34 U/L (6-35); Albumin Level 2.7 g/dL (3.5-5.1); Alkaline Phosphatase 140 U/L (38-126); Anion Gap 5 mmol/L (8-16); Aspartate Amino Transferase 45 U/L (14-36); Bilirubin,Total 0.2 mg/dL (0.2-1.3); Blood Urea Nitrogen 58 mg/dL (7-17); Carbon Dioxide 23 mmol/L (22-30); Chloride 112 mmol/L (98-107); Estimated CRCL calculation 12 ml/min; Estimated Glomerular Filt Rate 15; Glucose 91 mg/dL (65-110); Potassium 4.5 mmol/L (3.4-5.0); Sodium 140 mmol/L (137-145)
[2023-05-09] MEDS: cycloSPORINE 0.4 ML OPHTH SOLUTION 1 DROP EACH EYE (08:26)
[2023-05-09] MEDS: FLUTICASONE PROPIONATE 0.05% NA SPR 16 GM BTL (*BKC) 1 SPRAY NASAL (08:27)
[2023-05-09] MEDS: ACIDOPHILUS/BULGARICUS CHEWABLE TABLET 1 TABLET PO ×2 (08:29→17:16)
[2023-05-09] MEDS: ESCITALOPRAM OXALATE 10 MG TABLET PO (08:29)
[2023-05-09] MEDS: CHOLECALCIFEROL 1,000 UNITS TABLET 1000 UNITS PO ×2 (08:29→17:16)
[2023-05-09] MEDS: MIRTAZAPINE 15 MG TABLET PO (08:29)
[2023-05-09] MEDS: PANTOPRAZOLE 40 MG TABLET PO (08:29)
--- NOTE | 2023-05-09 09:52 | PM.PNNEP ---
Progress Note: A&P Assessment and Plan (1) Chronic kidney disease, stage IV (severe): Code(s): N18.4 - Chronic kidney disease, stage 4 (severe) Status: Chronic Assessment and Plan: known issue/problem had been following with Dr. Wright at [facility] baseline creatinine has been running ~ 2.5 - 3.0mg/dl in the last year or so etiology of CKD multifactorial: recurrent/previous bouts of MARK/ARF in the past urinary retention/obstructive uropathy prerenal azotemia kidney stones urinary tract infections follow repeat labs and UOP (2) Acute exacerbation of CHF (congestive heart failure): Qualifiers: Heart failure type: combined systolic and diastolic Qualified Code(s): I50.43 - Acute on chronic combined systolic (congestive) and diastolic (congestive) heart failure Code(s): I50.9 - Heart failure, unspecified Status: Acute Assessment and Plan: Echo withEF of 30 - 35% s/p IV diuretics - transitioned to oral lasix Cardiology recommendations noted attempt GMDT as tolerated (3) Anemia: Code(s): D64.9 - Anemia, unspecified Status: Chronic Assessment and Plan: suspect partly related to underlying CKD s/p 1 unit PRBC transfusion anemia studies noted GI recommendations noted consider empiric ELISHA while hospitalized (4) Acute UTI: Code(s): N39.0 - Urinary tract infection, site not specified Status: Acute Assessment and Plan: complicated by presence of indwelling mccormick catheter mccormick needed due to known urinary retention related to MS mccormick catheter exchanged out on admission urine culture with Pseudomonas and Klebsiella on antibiotics (5) Decubitus ulcer, heel: Code(s): L89.609 - Pressure ulcer of unspecified heel, unspecified stage Status: Chronic Assessment and Plan: chronic issue improving with ongoing therapy at assisted wound care following Will continue to follow. Subjective Date/time seen: 05/09/23 09:52 Interval history: Follow-up for chronic kidney disease. Overall, feeling quite well when seen; no apparent distress voiced at the time of my visit; renal function, breathing/respiratory status, and hemoglobin are stable; no new complaints to report. Exam Narrative: General: elderly but WD/WN female in NAD Heart: normal S1 and S2; no rub Lungs: clear anteriorly; decreased at bases Abdomen: soft, nontender, nondistended, positive bowel sounds Extremities: no cyanosis or clubbing; trace edema Skin: warm and dry Objective Data Vital Signs Vital Signs: Vital Signs Temp Pulse Resp BP Pulse Ox O2 Del Method 05/09/23 08:00 81 05/09/23 08:54 96 Room Air 05/09/23 05:20 97.3 F L 70 17 109/57 L 93 05/09/23 04:00 78 05/09/23 00:00 82 05/08/23 20:00 90 05/08/23 20:00 Room Air 05/08/23 20:44 97.4 F L 89 17 95/46 L 95 05/08/23 16:00 89 05/08/23 14:00 97.5 F L 88 16 99/38 L 98 Intake/Output Intake/Output: Intake & Output 05/06/23 05/07/23 05/08/23 05/09/23 23:59 23:59 23:59 23:59 Intake Total 2001 1710 1990 822 Output Total 2200 1801 2650 1200 [facility] -198 -91 -660 -378 Meds/Results Medications: Active Medications Generic Name Dose Route Start Last Admin Trade Name Freq PRN Reason Stop Dose Admin Acetaminophen 650 mg 05/01/23 17:18 05/08/23 22:47 Acetaminophen 325 Mg Tablet PO 650 mg Q6H PRN Administration Mild Pain (1-3) or Fever Albuterol/Ipratropium 3 ml 05/01/23 01:17 Ipratropium 0.5 Mg/Albuterol Sulfate 2.5 Mg Ampul.Neb 3 Ml INHALATION Q8H PRN Cough Atorvastatin Calcium 20 mg 05/04/23 21:00 05/08/23 22:47 Atorvastatin 20 Mg Tablet PO 20 mg QHS AGUEDA Administration Bisacodyl 10 mg 05/05/23 09:00 05/09/23 08:29 Bisacodyl 5 Mg Tablet Ec PO Not Given MoTh@0900 [facility] Carvedilol 6.25 m
--- NOTE | 2023-05-09 09:52 | P.PNNP_ITS ---
Progress Note: A&P Assessment and Plan (1) Chronic kidney disease, stage IV (severe): Code(s): N18.4 - Chronic kidney disease, stage 4 (severe) Status: Chronic Assessment and Plan: * known issue/problem * had been following with Dr. Wright at [facility] * baseline creatinine has been running ~ 2.5 - 3.0mg/dl in the last year or so * etiology of CKD multifactorial: * recurrent/previous bouts of MARK/ARF in the past * urinary retention/obstructive uropathy * prerenal azotemia * kidney stones * urinary tract infections * follow repeat labs and UOP (2) Acute exacerbation of CHF (congestive heart failure): Qualifiers: Heart failure type: combined systolic and diastolic Qualified Code(s): I50.43 - Acute on chronic combined systolic (congestive) and diastolic (conge stive) heart failure Code(s): I50.9 - Heart failure, unspecified Status: Acute Assessment and Plan: * Echo withEF of 30 - 35% * s/p IV diuretics - transitioned to oral lasix * Cardiology recommendations noted * attempt GMDT as tolerated (3) Anemia: Code(s): D64.9 - Anemia, unspecified Status: Chronic Assessment and Plan: * suspect partly related to underlying CKD * s/p 1 unit PRBC transfusion * anemia studies noted * GI recommendations noted * consider empiric ELISHA while hospitalized (4) Acute UTI: Code(s): N39.0 - Urinary tract infection, site not specified Status: Acute Assessment and Plan: * complicated by presence of indwelling mccormick catheter * mccormick needed due to known urinary retention related to MS * mccormick catheter exchanged out on admission * urine culture with Pseudomonas and Klebsiella * on antibiotics (5) Decubitus ulcer, heel: Code(s): L89.609 - Pressure ulcer of unspecified heel, unspecified stage Status: Chronic Assessment and Plan: * chronic issue * improving with ongoing therapy at care home * wound care following Will continue to follow. Subjective Date/time seen: 05/09/23 09:52 Interval history: Follow-up for chronic kidney disease. Overall, feeling quite well when seen; no apparent distress voiced at the time of my visit; renal function, breathing/respiratory status, and hemoglobin are stable; no new complaints to report. Exam Narrative: General: elderly but WD/WN female in NAD Heart: normal S1 and S2; no rub Lungs: clear anteriorly; decreased at bases Abdomen: soft, nontender, nondistended, positive bowel sounds Extremities: no cyanosis or clubbing; trace edema Skin: warm and dry Objective Data Vital Signs Vital Signs: Vital Signs Temp Pulse Resp BP Pulse Ox O2 Del Method 05/09/23 08:00 81 05/09/23 08:54 96 Room Air 05/09/23 05:20 97.3 F L 70 17 109/57 L 93 05/09/23 04:00 78 05/09/23 00:00 82 05/08/23 20:00 90 05/08/23 20:00 Room Air 05/08/23 20:44 97.4 F L 89 17 95/46 L 95 05/08/23 16:00 89 05/08/23 14:00 97.5 F L 88 16 99/38 L 98 Intake/Output Intake/Output: Intake & Output 05/06/23 05/07/23 05/08/23 05/09/23 23:59 23:59 23:59 23:59 Intake Total 2001 Output Total 2199 [id number]
--- NOTE | 2023-05-09 13:29 | PM.DS ---
DS: Admitting Diagnosis Discharge Date May 09, 2023 Admitting Diagnosis Shortness of breath DS: Discharge Diagnosis Discharge Diagnosis (1) Chronic kidney disease, stage IV (severe): Code(s): N18.4 - Chronic kidney disease, stage 4 (severe) Status: Chronic (2) Chronic kidney disease: Qualifiers: Chronic kidney disease stage: stage 4 (severe) Qualified Code(s): N18.4 - Chronic kidney disease, stage 4 (severe) Code(s): N18.9 - Chronic kidney disease, unspecified Status: Acute (3) CHF (congestive heart failure): Code(s): I50.9 - Heart failure, unspecified Status: Acute (4) Acute UTI: Code(s): N39.0 - Urinary tract infection, site not specified Status: Acute (5) Acute exacerbation of CHF (congestive heart failure): Qualifiers: Heart failure type: combined systolic and diastolic Qualified Code(s): I50.43 - Acute on chronic combined systolic (congestive) and diastolic (congestive) heart failure Code(s): I50.9 - Heart failure, unspecified Status: Acute DS: Summary Hospital Course Hospital Course: This is a 77-year-old female, long-term alf resident of [place], with past medical history remote morbid obesity status post gastric bypass surgery in 1970s, chronic anemia, chronic kidney disease, rheumatoid arthritis, multiple sclerosis, hyperlipidemia, hypothyroidism, depression anxiety, GERD, combined systolic-diastolic heart failure presenting with progressive fatigue and shortness of breath admitted on 04/20/20172023 with a BNP greater than 30,000. She is found to have progressive acute decompensated systolic heart failure with new moderate LV dysfunction EF 30-35%. Managing with guideline directed medical therapy has been difficult due to her advanced renal failure and low blood pressures. Imdur and hydralazine were added but her blood pressures decreased severely. Ultimately, those were stopped as well as her Lasix. Her Coreg decreased to 3.125 mg p.o. b.i.d.. Refer to cardiology consultation for further detailed discussion. He knows to follow up with her acid blower very closely as well as primary care. Of note, hemoglobin dropped to 7 and status post 1 unit PRBC her hemoglobin remained stable. GI was consulted and elected to continue with conservative management. Of note, her CKD is stable she is to follow up with Nephrology. Of note, the patient treated with a complicated UTI due to indwelling Kelley catheter. Rocephin initially and Pseudomonas and Klebsiella growing in urine culture sensitive to cefepime and Levaquin. Antibiotic switch the Levaquin to complete a 10 day total antibiotic course. The patient was DNR during her stay. She is discharged in stable condition back to her alf care [place] on 05/09. Time Spent with Patient Time attestation: Total time spent providing and/or coordinating discharge services: Exam Narrative: Poor skin turgor Const: General: comfortable and no acute distress Other: A&O x3 HENMT: Mouth: Yes dry mucous membranes Eyes: Pupils: Equal, round and reactive pupils present Neck: Neck: supple Resp: Effort & Inspection: normal respiratory effort Cardio: Rate: regular rate Rhythm: regular rhythm GI: GI Palp: Yes Soft to palpation and No Tenderness to palpation present (GI) Extrem: General: no edema DS: Data Data Completed and Pending Labs on day of discharge: Labs from last 24 hours 05/09/23 06:07 Sodium 140 Potassium 4.5 Chloride 112 H Carbon Dioxide 23 Anion Gap 5 L BUN 58 H Creatinine 3.00 H Estim Creat Clear Calc 12 Estimated GFR 15 L Glucose 91 Calcium 8.0 L Total Bilirubin 0.2 AST 45 H ALT 34 Alkaline Phosphatase 140 H Total Protein 6.0 L Albumin 2.7 L Discharge Plan Discharge Attending physician on discharge: Lucila Morris Consulting providers: Khanh Mooney; Tom Black; Clementina Mora
[2023-05-09 16:06] LABS: SARS-CoV-2 RNA PCR Negative (Negative)
== END 2023-05-09 18:25 | DRG 291 ==
LOC: ANHED 04-30 03:32 → ANH3MEDSUR 05-02 14:09
PROVIDERS: Internal Medicine; Internal Medicine Nephrology; Admitting Provider Student in an Organized Health Care Education/Training Program; Emergency Provider Emergency Medicine; PCP Family Medicine; Visit Provider General Practice
DX: I50.43 Acute on chronic combined systolic (congestive) and diastolic (congestive) heart failure (principal); J18.9 Pneumonia, unspecified organism; L89.623 Pressure ulcer of left heel, stage 3; T83.511A Infection and inflammatory reaction due to indwelling urethral catheter, initial encounter; J96.11 Chronic respiratory failure with hypoxia; N18.4 Chronic kidney disease, stage 4 (severe); I42.9 Cardiomyopathy, unspecified; I31.39 Other pericardial effusion (noninflammatory); K92.1 Melena; I27.20 Pulmonary hypertension, unspecified; J42 Unspecified chronic bronchitis; D53.9 Nutritional anemia, unspecified; L89.611 Pressure ulcer of right heel, stage 1; E11.22 Type 2 diabetes mellitus with diabetic chronic kidney disease; E53.8 Deficiency of other specified B group vitamins; E78.5 Hyperlipidemia, unspecified; E03.9 Hypothyroidism, unspecified; B96.5 Pseudomonas (aeruginosa) (mallei) (pseudomallei) as the cause of diseases classified elsewhere; B96.1 Klebsiella pneumoniae [K. pneumoniae] as the cause of diseases classified elsewhere; Z20.822 Contact with and (suspected) exposure to COVID-19; K21.9 Gastro-esophageal reflux disease without esophagitis; G35 Multiple sclerosis; M06.9 Rheumatoid arthritis, unspecified; M48.00 Spinal stenosis, site unspecified; F03.90 Unspecified dementia, unspecified severity, without behavioral disturbance, psychotic disturbance, mood disturbance, and anxiety; F32.A Depression, unspecified; F41.9 Anxiety disorder, unspecified; Z11.52 Encounter for screening for COVID-19; Z99.81 Dependence on supplemental oxygen; Z86.010 Personal history of colon polyps; Z87.442 Personal history of urinary calculi; Z99.3 Dependence on wheelchair; Z98.84 Bariatric surgery status
CPT/HCPCS: 36415; 36430; 71045; 76775; 80048; 80053; 80061; 80069; 81001; 81050; 82274; 82550; 82570; 82607; 82728; 82746; 83540; 83550; 83605; 83615; 83690; 83735; 83880; 84100; 84156; 84300; 84439; 84443; 84480; 84484; 84540; 85014; 85018; 85025; 85027; 85046; 85055; 85610; 85730; 85999; 86140; 86850; 86900; 86901; 86923; 87040; 87086; 87186; 87635; 87637; 93005; 96361; 96365; 96375; 96376; 97161; 97165; 99285; A9270; C8929; C9113; J0456; J0692; J0696; J1940; J7050; P9016; Q9957

== ENCOUNTER 2023-11-23 14:33 | Emergency (ER) | payer MEDICARE, MEDICAID, SELFPAY ==
[2023-11-23 14:56] VITALS: BP 129/53; PULSE 82; RESP 14; TEMP 36.6; O2SAT 99
[2023-11-23 17:48] LABS: Basophils Percent Auto 0.6 % (0.2-1.2); Eosinophils Absolute Auto 0.2 K/mm3 (0-0.3); Hematocrit 27.4 % (37.0-47.0); Immature Granulocyte Absolute 0.01 K/mm3 (0.00-0.031); Immature Granulocyte Percent A 0.2 % (0-0.5); Immature Platelet Fraction Pct 3.6 % (0.9-11.2); Lymphocytes Absolute Auto 1.12 K/mm3 (0.9-3.2); Lymphocytes Percent Auto 21.3 % (18.3-44.2); Mean Corpuscular HGB Conc 29.2 g/dl (32-36); Mean Corpuscular Hemoglobin 30.7 pg (26-34); Mean Platelet Volume 10.5 fl (7.4-10.4); Monocytes Absolute Auto 0.2 K/mm3 (0.1-0.6); Monocytes Percent Auto 4.4 % (2.6-8.5); Neutrophils Absolute Auto 3.7 K/mm3 (1.3-6.7); Neutrophils Percent Auto 70.5 % (45.5-73.1); Platelet Count Result 111 k/mm3 (150-375); Red Blood Count 2.61 M/mm3 (4.2-5.4); Red Cell Distribution Width 14.3 % (11.5-14.5); White Blood Count 5.3 K/mm3 (4.5-10.0)
[2023-11-23 17:57] LABS: Alanine Aminotransferase 49 U/L (6-35); Albumin Level 3.1 g/dL (3.5-5.1); Alkaline Phosphatase 216 U/L (38-126); Anion Gap 10 mmol/L (4-12); Aspartate Amino Transferase 44 U/L (14-36); Bilirubin,Total 0.2 mg/dL (0.2-1.3); Blood Urea Nitrogen 52 mg/dL (7-17); Calcium 6.9 mg/dL (8.4-10.2); Carbon Dioxide 23 mmol/L (22-30); Chloride 111 mmol/L (98-107); Estimated CRCL calculation 11 ml/min; Estimated Glomerular Filt Rate 14; Glucose 122 mg/dL (65-110); Potassium 3.5 mmol/L (3.4-5.0); Sodium 144 mmol/L (137-145)
[2023-11-23 18:13] LABS: Bacteria Urine 4+ /hpf; Non Pathogenic Casts 0-2; RBC Urine >100 /hpf (0-2); Squamous Epithelial Cell Urine None Seen /hpf (Few); WBC Urine >100 /hpf (0-3)
[2023-11-23 18:13] LABS: INR 1.2; Prothrombin Time 15.8 Seconds (11.1-14.7)
[2023-11-23 18:14] LABS: Partial Thromboplastin Time 30.7 Seconds (22.3-36.8)
[2023-11-23 18:16] LABS: Platelet Estimate Decreased (Adequate); Schistocytes None Seen
[2023-11-23 18:17] LABS: Anisocytosis 1+; Hypochromasia 1+
--- NOTE | 2023-11-23 18:19 | ED.FEMALEGU ---
HPI - Female Genitourinary General Chief complaint: Urogenital-Female Stated complaint: hematuria 2 days ago Time Seen by Provider: 11/23/23 15:57 History of Present Illness HPI Narrative: 78-year-old female with a history of hypertension, CKD, chronic indwelling Kelley presenting with hematuria. States that she 1st noticed blood in her urine a couple days ago. States that his last blood in her urine but it is still pretty red so she came in for evaluation. States that her usp started her on ciprofloxacin a couple days ago. States she is concerned about her kidneys. Denies abdominal pain, nausea vomiting diarrhea. No fevers. No further complaints. Related Data Home Medications Medication Instructions Recorded Confirmed ergocalciferol (vitamin D2) 1,250 1,250 mcg PO MONTHLY 07/26/21 09/01/23 mcg (50,000 unit) capsule levothyroxine 75 mcg tablet 75 mcg PO DAILY 07/26/21 09/01/23 nystatin 100,000 unit/gram topical 1 applic topical TID PRN Rash 07/26/21 09/01/23 cream omeprazole 20 mg capsule,delayed 20 mg PO DAILY 07/26/21 09/01/23 release Lactobacillus acidophilus 1 cap PO BID 07/27/21 09/01/23 (Acidophilus capsule) acetaminophen 325 mg tablet 325 mg PO Q6H PRN Pain 07/27/21 09/01/23 bisacodyl 5 mg tablet,delayed 10 mg PO 2XW PRN Constipation 07/27/21 09/01/23 release cholecalciferol (vitamin D3) 25 50 mcg PO BID 07/27/21 09/01/23 mcg (1,000 unit) tablet (Vitamin D3) cranberry fruit 450 mg tablet 450 mg PO TID 07/27/21 09/01/23 (cranberry) cyclosporine 0.05 % eye drops in a 1 drp EACH EYE BID 07/27/21 09/01/23 dropperette (Restasis) ferrous sulfate 325 mg (65 mg 325 mg PO BID 07/27/21 09/01/23 iron) tablet,delayed release fluticasone propionate 50 1 spray intranasal DAILY 07/27/21 09/01/23 mcg/actuation nasal spray,suspension hydrocortisone 1 % topical cream 1 applic topical BID PRN Itching 07/27/21 09/01/23 ipratropium 0.5 mg-albuterol 3 mg 3 ml inhalation Q8H PRN Cough 07/27/21 09/01/23 (2.5 mg base)/3 mL nebulization soln loperamide 2 mg tablet (Imodium 2 mg PO QID PRN Diarrhea 07/27/21 09/01/23 A-D) melatonin 5 mg tablet 8 mg PO HS PRN Insomnia 07/27/21 09/01/23 polyethylene glycol 3350 17 gram 17 g PO DAILY PRN Constipation 07/27/21 09/01/23 oral powder packet sennosides 8.6 mg tablet (Senna 8.6 mg PO DAILY PRN Constipation 07/27/21 09/01/23 Lax) escitalopram oxalate 10 mg tablet 10 mg PO DAILY 04/30/23 09/01/23 (Lexapro) mirtazapine 15 mg tablet 15 mg PO DAILY 04/30/23 09/01/23 Allergies Allergy/AdvReac Type Severity Reaction Status Date / Time Penicillins Allergy Unknown Rash Verified 04/29/23 22:31 Review of Systems Review of Systems: All systems reviewed & are unremarkable except as noted in HPI and below PMFSH Past Medical History Medical History Anxiety B12 deficiency Chronic bronchitis Chronic pancreatitis Dementia Depression Diastolic dysfunction Noted on echocardiogram 2015, EF 65%, moderate LVH Diet-controlled type 2 diabetes mellitus GERD (gastroesophageal reflux disease) Hyperlipidemia Hypothyroidism Intracranial bleed Noted on MRI May 2016: 8 mm lesion in the right temporal lobe consistent with acute intraparenchymal hematoma Kidney stones Multiple sclerosis Optic neuritis due to multiple sclerosis Pulmonary hypertension Mild, noted on echocardiogram 2016 RVSP of 40 Respiratory failure requiring intubation (01/2014) Rheumatoid arthritis Small bowel obstruction Spinal stenosis With history of pain pump insertion and subsequent removal. Surgical History Surgical History History of cholecystectomy History of colonoscopy with polypectomy Most recent colonoscopy in 2017 demonstrate no polyps History of gastric bypass History of hysterectomy Due to fibroids and endometriosis History of inguinal hernia repair
[2023-11-23 18:21] LABS: Add Urine Microscopic? YES; Appearance Urine Cloudy (Clear); Bilirubin Urine Negative (Negative); Blood Urine 3+ (Negative); Color Urine Red (Yellow); Glucose Urine UA Negative (Negative); Ketones Urine Negative (Negative); Leukocyte Esterase Ur 3+ LEU/UL (Negative); Nitrate Urine Negative (Negative); Protein Urine 2+ mg/dL (Negative); Specific Grav Ur 1.009 (1.001-1.035); Urobilinogen Urine 0.2 mg/dL (<2.0); pH Urine 6.5 (5.0-9.0)
[2023-11-23] MEDS: SODIUM CHLORIDE 0.9% IV 500 ML 999 ML IV CONT (19:06)
--- NOTE | 2023-11-23 20:15 | PC.NURSE ---
Home mccormick removed. [address] mccormick placed. CBI started by lorraine RN and GAYE Woods. Patent and draining.
[2023-11-23 20:20] VITALS: BP 126/99; PULSE 87; RESP 17; O2SAT 96
[2023-11-23] MEDS: ACETAMINOPHEN 500 MG TABLET 1000 MG PO (20:23)
== END 2023-11-23 23:00 ==
PROVIDERS: Emergency Provider Emergency Medicine; PCP Family Medicine
DX: N39.0 Urinary tract infection, site not specified (principal); N18.9 Chronic kidney disease, unspecified; D63.1 Anemia in chronic kidney disease; I12.9 Hypertensive chronic kidney disease with stage 1 through stage 4 chronic kidney disease, or unspecified chronic kidney disease; R31.9 Hematuria, unspecified; F41.8 Other specified anxiety disorders; E53.8 Deficiency of other specified B group vitamins; F03.90 Unspecified dementia, unspecified severity, without behavioral disturbance, psychotic disturbance, mood disturbance, and anxiety; E11.22 Type 2 diabetes mellitus with diabetic chronic kidney disease; K21.9 Gastro-esophageal reflux disease without esophagitis; E78.5 Hyperlipidemia, unspecified; E03.9 Hypothyroidism, unspecified; G35 Multiple sclerosis; M06.9 Rheumatoid arthritis, unspecified
CPT/HCPCS: 36415; 51700; 80053; 81001; 85025; 85055; 85610; 85730; 87086; 87088; 96360; 99283; A9270; J7040

== ENCOUNTER 2023-11-28 04:55 | Emergency (ER) | payer MEDICARE, MEDICAID, SELFPAY ==
[2023-11-28] VITALS (10 sets, daily range): BP systolic 100–148; BP diastolic 53–98; PULSE 70–88; RESP 13–20; TEMP 36.5–36.7; O2SAT 93–100
--- NOTE | ~2023-11-28 | CT_ITS ---
EXAMINATION: CT abdomen pelvis wo con DATE: 11/28/2023 08:43 INDICATION: Hematuria TECHNIQUE: Computed tomography (CT) of the abdomen and pelvis was performed without intravenous contr ast. Automated exposure control and iterative reconstruction technique were employed. The dose-length product was 496.93 mGy-cm. COMPARISON: 01/29/2017 FINDINGS: Atelectasis along the bilateral lung bases. Mild cardiomegaly with moderate-sized pericardial effusio n. Atherosclerotic coronary artery calcifications. Change of prior gastric bypass procedure. There is some postoperative scarring with some sutures along the midline anterior abdominal wall. Cholecystec anish clips at the gallbladder fossa. Liver and bilateral adrenal glands are normal. A few dystrophic calcifications scattered throughout the pancreas consistent with sequela of chronic pancreatitis. The re is mild bilateral hydroureteronephrosis extending to the bladder which is decompressed around a Fo mukesh catheter. No urolithiasis. There are multiple bladder wall diverticula which suggests sequela of chronic outlet obstruction versus neurogenic bladder. No bowel obstruction. Small amount of scattered abdominal ascites predominantly along the spleen. No abscess or free intraperitoneal gas. No patholo gically enlarged abdominal or pelvic lymphadenopathy. Extensive body wall edema. Lumbar levoscoliosis with severe spondylosis including fusion across the right side of the L3 and L4 vertebral bodies. IMPRESSION: 1. Mild bilateral hydroureteronephrosis extending to the bladder which is decompressed around a Kelley catheter with multiple bladder diverticula which suggests sequela of chronic outlet obstruction vers us neurogenic bladder and could not exclude associated cystitis. 2. Mild cardiomegaly with moderate-sized pericardial effusion. 3. Diffuse body wall edema and small amount of ascites. 4. Scattered pancreatic parenchyma calcific lesions consistent with sequela of chronic pancreatitis. Reviewed, dictated and finalized at location B. IMPRESSION: 1. Mild bilateral hydroureteronephrosis extending to the bladder which is decom pressed around a Kelley catheter with multiple bladder diverticula which suggest s sequela of chronic outlet obstruction versus neurogenic bladder and could not exclude associated cystitis. 2. Mild cardiomegaly with moderate-sized pericardial effusion. 3. Diffuse body wall edema and small amount of ascites. 4. Scattered pancreatic parenchyma calcific lesions consistent with sequela of chronic pancreatitis.
--- NOTE | 2023-11-28 05:30 | ED.GENADULT ---
HPI - General Adult General Chief complaint: Urogenital-Female <Manoj Carmichael MD - Last Filed: 11/28/23 05:34> Stated complaint: blood in catheter <Manoj Carmichael MD - Last Filed: 11/28/23 05:34> Time Seen by Provider: 11/28/23 05:00 <Manoj Carmichael MD - Last Filed: 11/28/23 05:34> History of Present Illness HPI narrative: He is a 78-year-old female who presents emergency department with chief complaint of hematuria patient was seen in the emergency department recently for a episode of hematuria. Patient reports that she had a [address] that was irritating her and she was changed back to a regular catheter. Patient states he had pink lemonade colored urine the last several days and reports this evening she started having bright red blood in her urine and passed some clots. Patient denies being on anticoagulants reports no trauma <Manoj Carmichael MD - Last Filed: 11/28/23 05:34> Related Data Home medications: Home Medications Medication Instructions Recorded Confirmed ergocalciferol (vitamin D2) 1,250 1,250 mcg PO MONTHLY 07/26/21 09/01/23 mcg (50,000 unit) capsule levothyroxine 75 mcg tablet 75 mcg PO DAILY 07/26/21 09/01/23 nystatin 100,000 unit/gram topical 1 applic topical TID PRN Rash 07/26/21 09/01/23 cream omeprazole 20 mg capsule,delayed 20 mg PO DAILY 07/26/21 09/01/23 release Lactobacillus acidophilus 1 cap PO BID 07/27/21 09/01/23 (Acidophilus capsule) acetaminophen 325 mg tablet 325 mg PO Q6H PRN Pain 07/27/21 09/01/23 bisacodyl 5 mg tablet,delayed 10 mg PO 2XW PRN Constipation 07/27/21 09/01/23 release cholecalciferol (vitamin D3) 25 50 mcg PO BID 07/27/21 09/01/23 mcg (1,000 unit) tablet (Vitamin D3) cranberry fruit 450 mg tablet 450 mg PO TID 07/27/21 09/01/23 (cranberry) cyclosporine 0.05 % eye drops in a 1 drp EACH EYE BID 07/27/21 09/01/23 dropperette (Restasis) ferrous sulfate 325 mg (65 mg 325 mg PO BID 07/27/21 09/01/23 iron) tablet,delayed release fluticasone propionate 50 1 spray intranasal DAILY 07/27/21 09/01/23 mcg/actuation nasal spray,suspension hydrocortisone 1 % topical cream 1 applic topical BID PRN Itching 07/27/21 09/01/23 ipratropium 0.5 mg-albuterol 3 mg 3 ml inhalation Q8H PRN Cough 07/27/21 09/01/23 (2.5 mg base)/3 mL nebulization soln loperamide 2 mg tablet (Imodium 2 mg PO QID PRN Diarrhea 07/27/21 09/01/23 A-D) melatonin 5 mg tablet 8 mg PO HS PRN Insomnia 07/27/21 09/01/23 polyethylene glycol 3350 17 gram 17 g PO DAILY PRN Constipation 07/27/21 09/01/23 oral powder packet sennosides 8.6 mg tablet (Senna 8.6 mg PO DAILY PRN Constipation 07/27/21 09/01/23 Lax) escitalopram oxalate 10 mg tablet 10 mg PO DAILY 04/30/23 09/01/23 (Lexapro) mirtazapine 15 mg tablet 15 mg PO DAILY 04/30/23 09/01/23 <Manoj Carmichael MD - Last Filed: 11/28/23 05:34> Allergies/adverse reactions: Allergies Allergy/AdvReac Type Severity Reaction Status Date / Time Penicillins Allergy Unknown Rash Verified 04/29/23 22:31 <Manoj Carmichael MD - Last Filed: 11/28/23 05:34> Review of Systems Review of Systems: A 10 system review of systems was completed on the patient and is negative except for what is stated in the HPI. Nursing and ancillary documentation was reviewed. <Manoj Carmichael MD - Last Filed: 11/28/23 05:34> [facility] Past Medical History Medical History: Medical History Anxiety B12 deficiency Chronic bronchitis Chronic pancreatitis Dementia Depression Diastolic dysfunction Noted on echocardiogram 2015, EF 65%, moderate LVH Diet-controlled type 2 diabetes mellitus GERD (gastroesophageal reflux disease) Hyperlipidemia Hypothyroidism Intracranial bleed Noted on MRI May 2016: 8 mm lesion in the right temporal lobe consistent with acute intraparenchymal
[2023-11-28 06:30] LABS: Basophils Percent Auto 0.7 % (0.2-1.2); Eosinophils Absolute Auto 0.2 K/mm3 (0-0.3); Eosinophils Percent Auto 3.7 % (0-4.4); Hemoglobin 8.3 g/dL (12.0-15.0); Immature Granulocyte Absolute 0.02 K/mm3 (0.00-0.031); Immature Granulocyte Percent A 0.5 % (0-0.5); Immature Platelet Fraction Pct 4.1 % (0.9-11.2); Lymphocytes Absolute Auto 0.93 K/mm3 (0.9-3.2); Lymphocytes Percent Auto 23.1 % (18.3-44.2); Mean Corpuscular HGB Conc 29.6 g/dl (32-36); Mean Corpuscular Hemoglobin 30.7 pg (26-34); Mean Corpuscular Volume 103.7 fl (80-100); Mean Platelet Volume 11.5 fl (7.4-10.4); Monocytes Absolute Auto 0.3 K/mm3 (0.1-0.6); Monocytes Percent Auto 6.2 % (2.6-8.5); Neutrophils Absolute Auto 2.7 K/mm3 (1.3-6.7); Neutrophils Percent Auto 65.8 % (45.5-73.1); Platelet Count Result 109 k/mm3 (150-375); Red Cell Distribution Width 14.4 % (11.5-14.5)
[2023-11-28] MEDS: MORPHINE SULFATE (*CRX) 4 MG/ML INJ 2 MG IV PUSH (06:31)
[2023-11-28 06:39] LABS: INR 1.2; Prothrombin Time 16.2 Seconds (11.1-14.7)
[2023-11-28 06:40] LABS: Alanine Aminotransferase 55 U/L (6-35); Albumin Level 3.1 g/dL (3.5-5.1); Alkaline Phosphatase 202 U/L (38-126); Anion Gap 10 mmol/L (4-12); Aspartate Amino Transferase 69 U/L (14-36); Bilirubin,Total 0.3 mg/dL (0.2-1.3); Blood Urea Nitrogen 40 mg/dL (7-17); Calcium 6.8 mg/dL (8.4-10.2); Carbon Dioxide 21 mmol/L (22-30); Chloride 113 mmol/L (98-107); Estimated CRCL calculation 10 ml/min; Estimated Glomerular Filt Rate 13; Glucose 85 mg/dL (65-110); Partial Thromboplastin Time 32.8 Seconds (22.3-36.8); Potassium 3.5 mmol/L (3.4-5.0); Sodium 144 mmol/L (137-145)
[2023-11-28 06:54] LABS: Platelet Estimate Decreased (Adequate); Schistocytes None Seen
--- NOTE | 2023-11-28 10:00 | PC.NURSE ---
unable to irrigate mccormick at this time. made aware\
[2023-11-28] MEDS: NACL 0.9% IRRIGATION POUR BOTTLE 500 ML (10:32)
--- NOTE | 2023-11-28 15:44 | WPDURCON ---
Assessment and Plan Assessment and plan (1) Hematuria: Code(s): R31.9 - Hematuria, unspecified Status: Acute Assessment and Plan: Resolved. Continue with Kelley catheter. Continue course of Cipro until completed for UTI. Will plan for outpatient follow-up in 1 week to reassess symptoms and ensure resolution of hematuria Urology Consult Note HPI Date Seen: 11/28/23 Primary Care Provider: Eladio Connolly MD Consult Narrative Narrative: Alejandra Gray is a 78 year old female with history of neurogenic bladder with chronic Kelley in place who is being seen in consultation for gross hematuria. The patient initially presented to ER on 11/23/2019 formed as her nursing facility noticed bloody urine in her Kelley catheter. She had been on Cipro for a couple of days for suspected UTI. Upon arrival, a 3 way catheter was placed and she was started on CBI. Urine promptly cleared and she was discharged with a course of Cipro. Unfortunately, today she returned with similar symptoms, noted to have slightly pinkish discolored urine with a few small clots noted in the tubing. She was again started on course of continuous bladder irrigation and urine promptly cleared. At the time of my evaluation, the patient is doing well. Her Kelley catheter is draining clear yellow urine with CBI turned off. She denies sick pubic fullness, pressure, pain. Denies any concerns with Kelley catheter. Denies nausea, vomiting, fever, or chills. Given overall improvement, she was determined to not require ongoing care and was discharged back to her nursing facility. We will schedule outpatient follow-up for the patient within 1 week to reassess. She will continue her course of PO Cipro. Review of Systems Review of Systems: All systems reviewed & are unremarkable except as noted in HPI and below [facility] Past Medical History Medical History Anxiety B12 deficiency Chronic bronchitis Chronic pancreatitis Dementia Depression Diastolic dysfunction Noted on echocardiogram 2015, EF 65%, moderate LVH Diet-controlled type 2 diabetes mellitus GERD (gastroesophageal reflux disease) Hyperlipidemia Hypothyroidism Intracranial bleed Noted on MRI May 2016: 8 mm lesion in the right temporal lobe consistent with acute intraparenchymal hematoma Kidney stones Multiple sclerosis Optic neuritis due to multiple sclerosis Pulmonary hypertension Mild, noted on echocardiogram 2015 RVSP of 40 Respiratory failure requiring intubation (01/2014) Rheumatoid arthritis Small bowel obstruction Spinal stenosis With history of pain pump insertion and subsequent removal. Surgical History Surgical History History of cholecystectomy History of colonoscopy with polypectomy Most recent colonoscopy in 2017 demonstrate no polyps History of gastric bypass History of hysterectomy Due to fibroids and endometriosis History of inguinal hernia repair Reportedly 12 times Hx of tonsillectomy Status post cataract extraction of both eyes with insertion of intraocular lens Family History Family History Sibling Rheumatoid arthritis Lung cancer COPD (chronic obstructive pulmonary disease) Father Esophageal cancer Mother Diabetes mellitus Social History Social History Social History: Code status: Patient states she would not want cardiac resuscitation. She is uncertain if she would want intubation. She will defer whether not she gets placed on a ventilator to her Healthcare power of trademark attorney. Healthcare power of trademark attorney: Naomy Finney (close friend) Smoking status: Never smoker Alcohol intake: never Substance use: never Do You Feel Safe in your Home?: Yes Lack of Transportation: No Lack of Food
== END 2023-11-28 13:14 ==
PROVIDERS: Emergency Provider Emergency Medicine; PCP Family Medicine
DX: R31.9 Hematuria, unspecified (principal); G35 Multiple sclerosis; F03.90 Unspecified dementia, unspecified severity, without behavioral disturbance, psychotic disturbance, mood disturbance, and anxiety; I51.89 Other ill-defined heart diseases; I27.20 Pulmonary hypertension, unspecified; E53.8 Deficiency of other specified B group vitamins; E11.9 Type 2 diabetes mellitus without complications; E78.5 Hyperlipidemia, unspecified; E03.9 Hypothyroidism, unspecified; K21.9 Gastro-esophageal reflux disease without esophagitis; H46.9 Unspecified optic neuritis; M06.9 Rheumatoid arthritis, unspecified; Z98.84 Bariatric surgery status; Z96.1 Presence of intraocular lens; Z98.42 Cataract extraction status, left eye; Z98.41 Cataract extraction status, right eye; Z86.010 Personal history of colon polyps; Z87.442 Personal history of urinary calculi; Z90.49 Acquired absence of other specified parts of digestive tract; Z90.710 Acquired absence of both cervix and uterus; Z79.899 Other long term (current) drug therapy
CPT/HCPCS: 36415; 51702; 74176; 80053; 85025; 85055; 85610; 85730; 96374; 99284; J2270